=== PATIENT | male | born 1945 | race Caucasian/White ===

== ENCOUNTER → 2016-07-30 | Outpatient (CLI) | payer MEDICARE, BC ==
[2016-07-30 10:03] LABS: ABSOLUTE BASOPHILS # (AUTO) 0.1 10^3/uL (0.0-0.2); ABSOLUTE EOSINOPHILS # (AUTO) 0.2 10^3/uL (0.0-0.6); ABSOLUTE MONOCYTES (AUTO) 0.5 10^3/uL (0.1-1.4); ABSOLUTE NEUT (AUTO) 4.5 10^3/uL (1.7-8.2); BASOPHILS % (AUTO) 0.9 % (0-2); EOSINOPHILS % (AUTO) 2.7 % (0-6); HEMATOCRIT 37.4 % (37.9-51.0); HEMOGLOBIN 12.5 g/dL (13.5-17.0); HGB HCT DIFFERENCE 0.1; LYMPHOCYTES % (AUTO) 27.9 % (13-45); MEAN CORPUSCULAR HEMOGLOBIN 30.2 pg (27.0-33.4); MEAN CORPUSCULAR HGB CONC 33.6 g/dL (32.0-36.0); MEAN CORPUSCULAR VOLUME 90 fl (80-97); MONOCYTES % (AUTO) 6.5 % (3-13); RED BLOOD COUNT 4.15 10^6/uL (4.35-5.55); RED CELL DISTRIBUTION WIDTH 13.6 % (11.5-14.0); WHITE BLOOD COUNT 7.2 10^3/uL (4.0-10.5)
[2016-07-30 10:26] LABS: ALANINE AMINOTRANSFERASE 22 U/L (21-72); ALBUMIN 3.8 g/dL (3.5-5.0); ALKALINE PHOSPHATASE 55 U/L (38-126); ANION GAP 12 (5-19); ASPARTATE AMINO TRANSFERASE 18 U/L (17-59); BILIRUBIN,TOTAL 0.3 mg/dL (0.2-1.3); BLOOD UREA NITROGEN 19 mg/dL (7-20); CALCIUM 9.5 mg/dL (8.4-10.2); CARBON DIOXIDE 30 mmol/L (22-30); CHLORIDE 100 mmol/L (98-107); CHOLESTEROL 112.89 mg/dL (0-200); Direct HDL 28 mg/dL (>40); GLUCOSE 111 mg/dL (75-110); POTASSIUM 4.9 mmol/L (3.6-5.0); SODIUM 141.6 mmol/L (137-145); TOTAL PROTEIN 6.2 g/dL (6.3-8.2); TRIGLYCERIDES 99 mg/dL (<150)
[2016-07-30 10:37] LABS: DIRECT LDL 58 mg/dL (<100)
== END ==
LOC: OD 08:41
PROVIDERS: ATTEND Internal Medicine
DX: E11.9 Type 2 diabetes mellitus without complications (principal); I10 Essential (primary) hypertension; I25.10 Atherosclerotic heart disease of native coronary artery without angina pectoris; E78.5 Hyperlipidemia, unspecified; E03.9 Hypothyroidism, unspecified
CPT/HCPCS: 36415; 80053; 80061; 83036; 84443; 85025

== ENCOUNTER → 2016-09-17 | Outpatient (CLI) | payer MEDICARE, BC ==
[2016-09-17 16:13] LABS: ALANINE AMINOTRANSFERASE 28 U/L (21-72); ALBUMIN 4.4 g/dL (3.5-5.0); ALKALINE PHOSPHATASE 58 U/L (38-126); ANION GAP 12 (5-19); ASPARTATE AMINO TRANSFERASE 19 U/L (17-59); BILIRUBIN,TOTAL 0.6 mg/dL (0.2-1.3); BLOOD UREA NITROGEN 11 mg/dL (7-20); CALCIUM 9.7 mg/dL (8.4-10.2); CARBON DIOXIDE 26 mmol/L (22-30); CHLORIDE 98 mmol/L (98-107); GLUCOSE 80 mg/dL (75-110); POTASSIUM 4.6 mmol/L (3.6-5.0); SODIUM 136.3 mmol/L (137-145); TOTAL PROTEIN 6.9 g/dL (6.3-8.2)
[2016-09-19 10:44] LABS: PROSTATE SPECIFIC ANTIGEN 2.2 ng/mL (0.0-4.0); PSA % FREE 26.8 % (.); PSA FREE 0.59 ng/mL
== END ==
LOC: OD 14:58
PROVIDERS: ATTEND Urology
DX: N40.1 Benign prostatic hyperplasia with lower urinary tract symptoms (principal); I10 Essential (primary) hypertension; E13.9 Other specified diabetes mellitus without complications; R33.9 Retention of urine, unspecified; K58.9 Irritable bowel syndrome, unspecified; K59.00 Constipation, unspecified
CPT/HCPCS: 36415; 80053; 84154

== ENCOUNTER → 2017-06-29 | Outpatient (CLI) | payer MEDICARE, BC ==
[2017-06-29 09:24] LABS: ABSOLUTE BASOPHILS # (AUTO) 0.1 10^3/uL (0.0-0.2); ABSOLUTE EOSINOPHILS # (AUTO) 0.2 10^3/uL (0.0-0.6); ABSOLUTE LYMPHOCYTES (AUTO) 1.2 10^3/uL (0.5-4.7); ABSOLUTE MONOCYTES (AUTO) 0.5 10^3/uL (0.1-1.4); ABSOLUTE NEUT (AUTO) 3.5 10^3/uL (1.7-8.2); BASOPHILS % (AUTO) 2.4 % (0-2); EOSINOPHILS % (AUTO) 3.3 % (0-6); HEMATOCRIT 39.7 % (37.9-51.0); HEMOGLOBIN 13.4 g/dL (13.5-17.0); HGB HCT DIFFERENCE 0.5; LYMPHOCYTES % (AUTO) 22.8 % (13-45); MEAN CORPUSCULAR HEMOGLOBIN 30.5 pg (27.0-33.4); MEAN CORPUSCULAR HGB CONC 33.7 g/dL (32.0-36.0); MEAN CORPUSCULAR VOLUME 91 fl (80-97); MONOCYTES % (AUTO) 8.4 % (3-13); RED BLOOD COUNT 4.38 10^6/uL (4.35-5.55); RED CELL DISTRIBUTION WIDTH 13.7 % (11.5-14.0); SEGMENTED NEUTROPHILS % (AUTO) 63.1 % (42-78); WHITE BLOOD COUNT 5.5 10^3/uL (4.0-10.5)
[2017-06-29 09:57] LABS: ALANINE AMINOTRANSFERASE 29 U/L (21-72); ALBUMIN 4.1 g/dL (3.5-5.0); ALKALINE PHOSPHATASE 56 U/L (38-126); ANION GAP 12 (5-19); ASPARTATE AMINO TRANSFERASE 17 U/L (17-59); BILIRUBIN,DIRECT 0.3 mg/dL (0.0-0.4); BILIRUBIN,TOTAL 0.4 mg/dL (0.2-1.3); BLOOD UREA NITROGEN 13 mg/dL (7-20); CALCIUM 9.5 mg/dL (8.4-10.2); CARBON DIOXIDE 29 mmol/L (22-30); CHLORIDE 102 mmol/L (98-107); CREATININE RESULT 1.01 mg/dL (0.52-1.25); Direct HDL 38 mg/dL (>40); GLUCOSE 114 mg/dL (75-110); POTASSIUM 4.6 mmol/L (3.6-5.0); SODIUM 142.9 mmol/L (137-145); TOTAL PROTEIN 6.6 g/dL (6.3-8.2); TRIGLYCERIDES 124 mg/dL (<150)
[2017-06-29 10:07] LABS: DIRECT LDL 60 mg/dL (<100)
== END ==
LOC: OD 07:57
PROVIDERS: ATTEND Internal Medicine
DX: E11.9 Type 2 diabetes mellitus without complications (principal); I25.10 Atherosclerotic heart disease of native coronary artery without angina pectoris; I10 Essential (primary) hypertension; E03.9 Hypothyroidism, unspecified; N40.0 Benign prostatic hyperplasia without lower urinary tract symptoms; R35.1 Nocturia; Z68.33 Body mass index [BMI] 33.0-33.9, adult
CPT/HCPCS: 36415; 80053; 80061; 83036; 84153; 84443; 85025

== ENCOUNTER → 2018-02-09 | Outpatient (CLI) | payer MEDICARE, BC, OTHER ==
[2018-02-09 08:54] LABS: ABSOLUTE BASOPHILS # (AUTO) 0.1 10^3/uL (0.0-0.2); ABSOLUTE EOSINOPHILS # (AUTO) 0.2 10^3/uL (0.0-0.6); ABSOLUTE LYMPHOCYTES (AUTO) 1.6 10^3/uL (0.5-4.7); ABSOLUTE MONOCYTES (AUTO) 0.4 10^3/uL (0.1-1.4); ABSOLUTE NEUT (AUTO) 3.8 10^3/uL (1.7-8.2); EOSINOPHILS % (AUTO) 3.7 % (0-6); HEMATOCRIT 35.7 % (37.9-51.0); HEMOGLOBIN 12.1 g/dL (13.5-17.0); LYMPHOCYTES % (AUTO) 25.8 % (13-45); MEAN CORPUSCULAR HEMOGLOBIN 30.2 pg (27.0-33.4); MEAN CORPUSCULAR HGB CONC 33.8 g/dL (32.0-36.0); MEAN CORPUSCULAR VOLUME 89 fl (80-97); MONOCYTES % (AUTO) 7.3 % (3-13); PLATELET COUNT 344 10^3/uL (150-450); RED CELL DISTRIBUTION WIDTH 13.9 % (11.5-14.0); SEGMENTED NEUTROPHILS % (AUTO) 62.2 % (42-78); TOTAL CELLS COUNTED % (AUTO) 100 %; WHITE BLOOD COUNT 6.1 10^3/uL (4.0-10.5)
[2018-02-09 09:17] LABS: ALANINE AMINOTRANSFERASE 22 U/L (21-72); ALBUMIN 3.8 g/dL (3.5-5.0); ALKALINE PHOSPHATASE 42 U/L (38-126); ANION GAP 9 (5-19); ASPARTATE AMINO TRANSFERASE 14 U/L (17-59); BILIRUBIN,DIRECT 0.3 mg/dL (0.0-0.4); BILIRUBIN,TOTAL 0.5 mg/dL (0.2-1.3); BLOOD UREA NITROGEN 11 mg/dL (7-20); CALCIUM 9.2 mg/dL (8.4-10.2); CARBON DIOXIDE 29 mmol/L (22-30); CHLORIDE 101 mmol/L (98-107); CHOLESTEROL 95.36 mg/dL (0-200); GLUCOSE 96 mg/dL (75-110); POTASSIUM 4.4 mmol/L (3.6-5.0); SODIUM 138.9 mmol/L (137-145); TOTAL PROTEIN 6.1 g/dL (6.3-8.2); TRIGLYCERIDES 91 mg/dL (<150)
[2018-02-09 09:28] LABS: DIRECT LDL 43 mg/dL (<100)
== END ==
LOC: OD 08:23
PROVIDERS: ATTEND Internal Medicine
DX: E11.9 Type 2 diabetes mellitus without complications (principal); I10 Essential (primary) hypertension; E78.5 Hyperlipidemia, unspecified; E03.9 Hypothyroidism, unspecified
CPT/HCPCS: 36415; 80053; 80061; 83036; 84443; 85025

== ENCOUNTER 2018-04-04 00:07 | Emergency (ER) | payer MEDICARE, BC ==
--- NOTE | 2018-04-04 00:22 | ER Document Report ---
ED Fall - General Chief Complaint: Fall Stated Complaint: FALL-PAIN ALL OVER Time Seen by Provider: 04/04/18 00:13 Notes: Patient is a 73-year-old male that comes emergency room for chief complaint of fall. He states that he fell earlier today, he fell off of his chair backwards and hit his head, states that prior to arrival he also tried to get up, his legs suddenly give out from under him and he landed on his knees causing pain in his legs. He denies back pain, abdominal pain, chest pain, numbness, incontinence. He is on aspirin, no other blood thinners. Past medical history of Parkinson's. States she does have a walker and did not have it at the time of his falling. TRAVEL OUTSIDE OF THE [place] IN LAST 30 DAYS: No - Related data Allergies/Adverse Reactions: steroids Adverse Reaction (Intermediate, Uncoded 01/04/16 10:24) elevated bp Past Medical History - General Information source: Patient, Relative - - Social History Smoking Status: Never Smoker Frequency of alcohol use: None Drug Abuse: None Lives with: Family Family History: Arthritis, CAD, CVA, Hyperlipidemia, Hypertension, Malignancy. denies: DM, Thyroid Disfunction - Past Medical History Cardiac Medical History: Reports: Hx Atrial Fibrillation, Hx Hypercholesterolemia, Hx Hypertension - medicated Denies: Hx Heart Attack Pulmonary Medical History: Reports: Hx Pneumonia Denies: Hx Asthma Neurological Medical History: Denies: Hx Seizures Endocrine Medical History: Reports: Hx Diabetes Mellitus Type 2, Hx Hypothyroidism Renal/ Medical History: Reports: Hx Benign Prostatic Hyperplasia, Hx Kidney Stones Malignancy Medical History: Reports Hx Skin Cancer GI Medical History: Reports: Hx Irritable Bowel, Hx Colonoscopy. Denies: Hx Hiatal Hernia, Hx Ulcer Musculoskeletal Medical History: Reports Hx Arthritis, Reports Hx Musculoskeletal Deformity, Reports Hx Musculoskeletal Trauma Psychiatric Medical History: Reports: Hx Anxiety, Hx Post Traumatic Stress Disorder Traumatic Medical History: Reports: Hx Fractures - 3 weeks ago tripped vidant orif L lisfranc still nonweight bearing Past Surgical History: Reports: Hx Orthopedic Surgery - cervical & lumbar laminectomies orif L lis franc. Denies: Hx Open Heart Surgery, Hx Pacemaker - Immunizations Immunizations up to date: Yes Hx Diphtheria, Pertussis, Tetanus Vaccination: Yes - january 2015 Hx Pneumococcal Vaccination: 07/20/13 Review of Systems - Review of Systems Constitutional: No symptoms reported EENT: No symptoms reported Cardiovascular: No symptoms reported Respiratory: No symptoms reported Gastrointestinal: No symptoms reported Genitourinary: No symptoms reported Male Genitourinary: No symptoms reported Musculoskeletal: See HPI Skin: No symptoms reported Hematologic/Lymphatic: No symptoms reported Neurological/Psychological: See HPI Physical Exam - Vital signs Vitals: Temp Pulse Resp BP Pulse Ox 97.7 F 63 16 169/81 H 100 04/04/18 00:04/04/18 00:04/04/18 00:04/04/18 00:04/04/18 00:19 - Notes Notes: GENERAL: Alert, interacts well. No acute distress. HEAD: Normocephalic, atraumatic. EYES: Pupils equal, round, and reactive to light. Extraocular movements intact. ENT: Oral mucosa moist, tongue midline. [Nares patent, no nasal septal hematoma , TM's intact.] NECK: Full range of motion. Supple. Trachea midline. LUNGS: Clear to auscultation bilaterally, no wheezes, rales, or rhonchi. No respiratory distress. HEART: Regular rate and rhythm. No murmur ABDOMEN: Soft, non-tender. Non-distended. Bowel sounds present in all 4 quadrants. EXTREMITIES: Tenderness over anterior knees with questionable tiny ecchymosis over the both patellar areas. No noted swelling or wounds. Mild tenderness over the hips bilaterally and generally, nonspecific. Able to ambulate. Normal distal neurovascular exam. Normal extremity exam is otherwise. BACK: no cervical, thoracic, lumbar midline tenderness. No saddle anesthesia, normal distal neurovascular exam. NEUROLOGICAL: Alert and oriented x3. Normal speech. Slightly tremulous occasional but otherwise unremarkable including almost normal finger-nose testing. [cranial nerves II through XII grossly intact]. PSYCH: Normal affect, normal mood. SKIN: Warm, dry, normal turgor. No rashes or lesions noted. Course - Re-evaluation Re-evalutation: Patient with occasional tremulousness consistent with Parkinson's disorder, otherwise his neurological exam is unremarkable. I do not appreciate any signs of trauma except for possibly over the top of the knees but there are no open wounds. CT of the head, neck unremarkable, imaging of the hips and knees unremarkable. On reevaluation patient remains unchanged, he can ambulate although he is occasionally jerky and unsteady. CBC, chemistry unremarkable. Vital signs unremarkable. Discussed with patient and . Recommended that he have close follow-up with his neurologist to adjust his medications for Parkinson's, use his walker, and use more caution to avoid falls. Because he can ambulate, he is still close to his baseline reportedly, and no concerning abnormality is profound patient will be discharged with follow-up instructions. Patient and state understanding and agreement. - Vital Signs Vital signs: Temp Pulse Resp BP Pulse Ox 97.7 F 63 16 169/81 H 100 04/04/18 00:19 04/04/18 00:19 04/04/18 00:19 04/04/18 00:19 04/04/18 00:19 - Laboratory Result Diagrams: 04/04/18 01:09 04/04/18 01:09 Laboratory results interpreted by me: 04/04/18 01:09 RBC 3.98 L Hgb 12.2 L Hct 35.9 L RDW 14.8 H Discharge - Discharge Clinical Impression: Fall Qualifiers: Encounter type: initial encounter Qualified Code(s): W19.XXXA - Unspecified fall, initial encounter Head injury Qualifiers: Encounter type: initial encounter Qualified Code(s): S09.90XA - Unspecified injury of head, initial encounter Knee pain Qualifiers: Chronicity: acute Laterality: bilateral Qualified Code(s): M25.561 - Pain in right knee Condition: Stable Disposition: HOME, SELF-CARE Additional Instructions: The imaging of your head, neck, hips, and knees show arthritis in your knees but no acute fracture or concerning abnormality. Take, for pain, apply ice over the knees, use your walker. Follow-up closely with your neurologist because of your recent falls, you may need her medications adjusted. Return for any concerning symptoms including symptoms of vomiting, confusion, or any other concerning symptoms. See additional instructions listed below. Head Injury Precautions At this point, there is no evidence that your head injury is serious. Observation is necessary, however. Take only clear liquids for the first few hours, unless told otherwise by the doctor. If no pain medication was prescribed, you may take acetaminophen according to the directions on the bottle. Do not take any medication that may alter your level of alertness (unless you've discussed it with the doctor first) . Limit activity for the first 24 hours. Bed rest is best. During the first 24 hours, check to see approximately every two to three hours that the patient is easily arousable, responds normally, and can perform common tasks such as walking without difficulty. Contact your doctor or go to the hospital if any of the following things occur: Persistent vomiting, difficulty in arousing the patient, worsening or continued headache, or failure to improve as expected. Head injuries can cause symptoms that persist for a few days or even a few weeks. Referrals: SILAS BRENNAN MD [Primary Care Provider] - Follow up as needed
[2018-04-04 00:33] VITALS: BP 169/81
--- NOTE | 2018-04-04 00:49 | RADIOLOGY REPORT (SQ) ---
CT HEAD WITHOUT IV CONTRAST HISTORY: Fall, head injury. COMPARISON: None. TECHNIQUE: CT scan of the brain. This exam was performed according to our departmental dose-optimization program, which includes automated exposure control, adjustment of the mA and/or kV according to patient size and/or use of iterative reconstruction technique. FINDINGS: No acute intracranial hemorrhage or extra-axial fluid collection is seen. No midline shift, mass effect, or hydrocephalus. The baez-white matter differentiation is preserved without evidence of acute infarction. The ventricles, cisterns, and sulci are age-appropriate. Paranasal sinuses and mastoid air cells are clear. Calvarium is intact. IMPRESSION: No acute intracranial abnormality.
--- NOTE | 2018-04-04 00:51 | RADIOLOGY REPORT (SQ) ---
CT CERVICAL SPINE WITHOUT IV CONTRAST HISTORY: Fall, head injury. COMPARISON: None.. TECHNIQUE: CT scan of the cervical spine. This exam was performed according to our departmental dose-optimization program, which includes automated exposure control, adjustment of the mA and/or kV according to patient size and/or use of iterative reconstruction technique. FINDINGS: No dislocation along the atlanto-occipital, atlantoaxial, or facet joints. Reversal of the normal cervical lordosis centered at C6. Grade 1 anterolisthesis of C5-C6. Multilevel degenerative disc disease and facet DJD throughout the cervical spine. No significant canal stenosis. No prevertebral soft tissue swelling. IMPRESSION: No acute fracture or static listhesis.
--- NOTE | 2018-04-04 01:07 | RADIOLOGY REPORT (SQ) ---
2 VIEWS OF THE LEFT KNEE 2 VIEWS OF THE RIGHT KNEE HISTORY: Knee pain status post fall. COMPARISON: None. FINDINGS/IMPRESSION: Generalized osteopenia is present. No acute fracture or malalignment. Bilateral tricompartmental degenerative changes. No knee joint effusions are seen.
--- NOTE | 2018-04-04 01:14 | RADIOLOGY REPORT (SQ) ---
2 VIEWS OF BOTH HIPS HISTORY: Pain status post fall. COMPARISON: None. FINDINGS/IMPRESSION: No hip joint dislocations are seen. SI joints and pubic symphysis are without diastases. Iliopubic and ilioischial lines are preserved. Bowel gas obscures sacrum. Given the generalized osteopenia, consider cross-sectional imaging if there is high concern.
[2018-04-04 01:22] LABS: ABSOLUTE BASOPHILS # (AUTO) 0.1 10^3/uL (0.0-0.2); ABSOLUTE EOSINOPHILS # (AUTO) 0.2 10^3/uL (0.0-0.6); ABSOLUTE LYMPHOCYTES (AUTO) 1.7 10^3/uL (0.5-4.7); ABSOLUTE MONOCYTES (AUTO) 0.7 10^3/uL (0.1-1.4); ABSOLUTE NEUT (AUTO) 6.5 10^3/uL (1.7-8.2); BASOPHILS % (AUTO) 0.8 % (0-2); EOSINOPHILS % (AUTO) 2.3 % (0-6); HEMATOCRIT 35.9 % (37.9-51.0); HEMOGLOBIN 12.2 g/dL (13.5-17.0); LYMPHOCYTES % (AUTO) 18.7 % (13-45); MEAN CORPUSCULAR HEMOGLOBIN 30.8 pg (27.0-33.4); MEAN CORPUSCULAR HGB CONC 34.1 g/dL (32.0-36.0); MEAN CORPUSCULAR VOLUME 90 fl (80-97); MONOCYTES % (AUTO) 7.2 % (3-13); PLATELET COUNT 296 10^3/uL (150-450); RED BLOOD COUNT 3.98 10^6/uL (4.35-5.55); RED CELL DISTRIBUTION WIDTH 14.8 % (11.5-14.0); TOTAL CELLS COUNTED % (AUTO) 100 %; WHITE BLOOD COUNT 9.2 10^3/uL (4.0-10.5)
[2018-04-04 01:38] LABS: ANION GAP 8 (5-19); BLOOD UREA NITROGEN 13 mg/dL (7-20); CALCIUM 9.2 mg/dL (8.4-10.2); CARBON DIOXIDE 28 mmol/L (22-30); CHLORIDE 105 mmol/L (98-107); GLUCOSE 89 mg/dL (75-110); POTASSIUM 4.1 mmol/L (3.6-5.0); SODIUM 140.6 mmol/L (137-145)
== END 2018-04-04 08:43 | disposition home or self-care (01) ==
LOC: ER 00:07
DX: S09.90XA Unspecified injury of head, initial encounter (principal); W07.XXXA Fall from chair, initial encounter; M25.561 Pain in right knee; M25.562 Pain in left knee; G20 Parkinson's disease; S82.892D Other fracture of left lower leg, subsequent encounter for closed fracture with routine healing; X58.XXXD Exposure to other specified factors, subsequent encounter; Z82.49 Family history of ischemic heart disease and other diseases of the circulatory system; I10 Essential (primary) hypertension; Z82.3 Family history of stroke
CPT/HCPCS: 99284; 36415; 85025; 80048; 73522; 73560; 70450; 72125; L0120; L0172

== ENCOUNTER → 2018-05-05 | Outpatient (CLI) | payer MEDICARE, BC ==
[2018-05-05 18:15] LABS: BLOOD UREA NITROGEN 12 mg/dL (7-20)
== END ==
LOC: OD 16:37
PROVIDERS: ATTEND Internal Medicine
DX: Z01.818 Encounter for other preprocedural examination (principal); I10 Essential (primary) hypertension; K57.92 Diverticulitis of intestine, part unspecified, without perforation or abscess without bleeding
CPT/HCPCS: 36415; 82565; 84520

== ENCOUNTER → 2018-05-07 | Outpatient (CLI) | payer MEDICARE, BC ==
--- NOTE | 2018-05-07 22:56 | RADIOLOGY REPORT (SQ) ---
EXAM DESCRIPTION: CT ABD/PELVIS WITH IV ORAL COMPLETED DATE/TIME: 05/07/2018 1:54 pm REASON FOR STUDY: DIVERTICULITIS (K57.92) K57.92 DVTRCLI OF INTEST, PART UNSP, W/O PERF OR ABSCESS W/O COMPARISON: None. TECHNIQUE: CT scan of the abdomen and pelvis performed using helical scanning technique with dynamic intravenous contrast injection. No oral contrast. Images reviewed with lung, soft tissue, and bone windows. Reconstructed coronal and sagittal MPR images reviewed. Delayed images for evaluation of the urinary system also acquired. All images stored on PACS. All CT scanners at this facility use dose modulation, iterative reconstruction, and/or weight based d osing when appropriate to reduce radiation dose to as low as reasonably achievable (ALARA). [facility]: Dose Right [facility]: CareDose [facility]: Dose Right [facility]: Teradose 4D [facility]: [employer] CONTRAST TYPE AND DOSE: contrast/concentration: Isovue 350.00 mg/ml; Total Contrast Delivered: 100.0 ml; Total Saline Delivered: 72.0 ml RENAL FUNCTION: BUN 12 creatinine 1.1 RADIATION DOSE: CT Rad equipment meets quality standard of care and radiation dose reduction techniq ues were employed. CTDIvol: 13.9 - 16.2 mGy. DLP: 1701 mGy-cm.. LIMITATIONS: None. FINDINGS: LOWER CHEST: No significant findings. No nodules or infiltrates. LIVER: Several small hepatic cysts are present. SPLEEN: Normal size. No focal lesions. PANCREAS: No masses. No significant calcifications. No adjacent inflammation or peripancreatic fluid collections. Pancreatic duct not dilated. GALLBLADDER: No identified stones by CT criteria. No inflammatory changes to suggest cholecystitis. ADRENAL GLANDS: No significant masses or asymmetry. RIGHT KIDNEY AND URETER: No solid masses. No significant calcifications. No hydronephrosis or hyd roureter. LEFT KIDNEY AND URETER: No solid masses. Nonobstructing intrarenal calculi. No hydronephrosis or hydroureter. AORTA AND VESSELS: No aneurysm. No dissection. Renal arteries, SMA, celiac without stenosis. RETROPERITONEUM: No retroperitoneal adenopathy, hemorrhage or masses. BOWEL AND PERITONEAL CAVITY: Mild sigmoid diverticulosis. No acute inflammation. Large amount of st ool is present in the colon. APPENDIX: Not identified. PELVIS: No mass. No free fluid. Normal bladder. ABDOMINAL WALL: No masses. No hernias. BONES: No significant or acute findings. OTHER: No other significant finding. IMPRESSION: Diverticulosis coli. No acute inflammation. Constipation. Small hepatic cysts are pre sent. TECHNICAL DOCUMENTATION: JOB ID: [id number] Quality ID # [id number]: Final reports with documentation of one or more dose reduction techniques (e.g., Au tomated exposure control, adjustment of the mA and/or kV according to patient size, use of iterative reconstruction technique) 2010 [employer]- All Rights Reserved Reading location - IP/workstation name: [email or web address]
== END ==
LOC: RAD 12:49
PROVIDERS: ATTEND Internal Medicine
DX: K57.92 Diverticulitis of intestine, part unspecified, without perforation or abscess without bleeding (principal)
CPT/HCPCS: 74177

== ENCOUNTER → 2018-07-26 | Outpatient (CLI) | payer MEDICARE, BC ==
--- NOTE | 2018-07-26 16:50 | RADIOLOGY REPORT (SQ) ---
EXAM DESCRIPTION: KUB/ABDOMEN (SINGLE VIEW) COMPLETED DATE/TIME: 07/26/2018 3:42 pm REASON FOR STUDY: CONSTIPATION - SLOW TRANSIT K59.01 SLOW TRANSIT CONSTIPATION COMPARISON: 09/09/2015 NUMBER OF VIEWS: One view. TECHNIQUE: Supine radiographic image of the abdomen acquired. LIMITATIONS: None. FINDINGS: BOWEL GAS PATTERN: Normal bowel gas pattern. No dilated loops. CALCIFICATIONS: No suspicious calcifications. SOFT TISSUES: No gross mass or suggestion of organomegaly. HARDWARE: None in the abdomen. BONES: No acute fracture. No worrisome bone lesions. OTHER: No other significant finding. IMPRESSION: NO RADIOGRAPHIC EVIDENCE FOR ACUTE ABDOMINAL DISEASE. TECHNICAL DOCUMENTATION: JOB ID: [id number] [employer]- All Rights Reserved Reading location - IP/workstation name: [email or web address]
== END ==
LOC: RAD 15:19
PROVIDERS: ATTEND Physician Assistant Surgical
DX: K59.01 Slow transit constipation (principal)
CPT/HCPCS: 74018

== ENCOUNTER 2018-08-11 19:21 | Emergency (ER) | payer MEDICARE, BC ==
[2018-08-11] MEDS ORDERED: LIDOCAINE 1% INJ-PF (10 MG/ML) 30 ML SDV INJ ONE (21:49)
--- NOTE | 2018-08-11 22:45 | ER Document Report ---
Addendum entered and electronically signed by JUSTIN LAUGHLIN FNP 08/22/18 18:56: Procedures - Incision and Drainage Left posterior head near mastoid bone Type: Simple Anesthetic type: 1% Lidocaine mL's of anesthetic: 6 Blade size: 11 I&D procedure: Shurclens applied Incision Method: Incision made by scalpel Addendum entered and electronically signed by JUSTIN LAUGHLIN FNP 08/12/18 01:43: Course - Re-evaluation Re-evalutation: 08/12/18 01:42 Patient's sodium is 131. He denies any confusion or any altered mental status. His states that she cooks a low-sodium diet for him. I have advised that he is able to have some salt in his diet. They verbalized understanding. - Vital Signs Vital signs: Temp Pulse Resp BP Pulse Ox 98.7 F 99 20 116/71 98 08/11/18 19:43 08/11/18 19:43 08/11/18 19:43 08/11/18 19:43 08/11/18 19:43 - Laboratory Result Diagrams: 08/11/18 23:32 Laboratory results interpreted by me: 08/11/18 23:32 Sodium 131.3 L Chloride 95 L Original Note: ED General - General Chief Complaint: Cyst Stated Complaint: POSSIBLE ABSCESS Time Seen by Provider: 08/11/18 21:26 Notes: Patient is a 73-year-old male who presents to the emergency department with a chief complaint of an abscess behind his ear. He first noticed this abscess 2 days ago, was seen by urgent care and given Bactrim. They drained the abscess at that time. He is now noticing a second abscess forming right next to the first one. He denies any fevers, but states the area feels warm. He is a diabetic and he is on Xarelto. TRAVEL OUTSIDE OF THE [place] IN LAST 30 DAYS: No - Related Data Allergies/Adverse Reactions: acetaminophen [From Tylenol] Adverse Reaction (Verified 08/11/18 21:19) steroids Adverse Reaction (Intermediate, Uncoded 01/04/16 10:24) elevated bp Past Medical History - Social History Smoking Status: Never Smoker Frequency of alcohol use: None Drug Abuse: None Family History: Arthritis, CAD, CVA, Hyperlipidemia, Hypertension, Malignancy. denies: DM, Thyroid Disfunction Patient has suicidal ideation: No Patient has homicidal ideation: No - Past Medical History Cardiac Medical History: Reports: Hx Atrial Fibrillation, Hx Hypercholesterolemia, Hx Hypertension - medicated Denies: Hx Heart Attack Pulmonary Medical History: Reports: Hx Pneumonia Denies: Hx Asthma Neurological Medical History: Denies: Hx Seizures Endocrine Medical History: Reports: Hx Diabetes Mellitus Type 2, Hx Hypothyroidism Renal/ Medical History: Reports: Hx Benign Prostatic Hyperplasia, Hx Kidney Stones. Denies: Hx Peritoneal Dialysis Malignancy Medical History: Reports Hx Skin Cancer GI Medical History: Reports: Hx Irritable Bowel, Hx Colonoscopy. Denies: Hx Hiatal Hernia, Hx Ulcer Musculoskeletal Medical History: Reports Hx Arthritis, Reports Hx Musculoskel etal Deformity, Reports Hx Musculoskeletal Trauma Psychiatric Medical History: Reports: Hx Anxiety, Hx Bipolar Disorder, Hx Depression - PTSD, Hx Post Traumatic Stress Disorder Traumatic Medical History: Reports: Hx Fractures - 3 weeks ago tripped vidant orif L lisfranc still nonweight bearing Past Surgical History: Reports: Hx Orthopedic Surgery - cervical & lumbar laminectomies orif L lis franc. Denies: Hx Open Heart Surgery, Hx Pacemaker - Immunizations Immunizations up to date: Yes Hx Diphtheria, Pertussis, Tetanus Vaccination: Yes - january 2015 Hx Pneumococcal Vaccination: 07/20/13 Review of Systems - Review of Systems Notes: REVIEW OF SYSTEMS: CONSTITUTIONAL : Denies recent illness. Denies recent unintentional weight loss. Denies fever, chills, or sweats. EENT: Denies eye, ear, throat, or mouth pain, discharge, or symptoms. Denies nasal or sinus congestion. CARDIOVASCULAR: Denies chest pain. RESPIRATORY: Denies shortness of breath, cough, congestion, difficulty breathing, or wheezing. GASTROINTESTINAL: Denies nausea, vomiting, and diarrhea. Denies abdominal pain. Denies constipation. GENITOURINARY: Denies difficulty urinating, burning, blood in urine, urgency or frequency. MUSCULOSKELETAL: Denies neck and back pain. Denies joint pain or swelling. SKIN: See HPI HEMATOLOGIC : Denies easy bruising or bleeding. LYMPHATIC: Denies swollen, painful, enlarged glands. NEUROLOGICAL: Denies no numbness or tingling denies weakness. Denies headache. Denies altered mental status. Denies alteration in speech. PSYCHIATRIC: Denies stress, anxiety, alteration in sleep patterns, or depression. All other systems reviewed and negative. Physical Exam - Vital signs Vitals: Temp Pulse Resp BP Pulse Ox 98.7 F 99 20 116/71 98 08/11/18 19:43 08/11/18 19:43 08/11/18 19:43 08/11/18 19:43 08/11/18 19:43 - Notes Notes: PHYSICAL EXAMINATION: GENERAL: Appears well, healthy, well-nourished, no acute distress. HEAD: Normocephalic, atraumatic. Abscess noted behind the ear. EYES: PERRL, conjunctiva normal, all extraocular movements intact, sclera nonicteric ENT: Moist mucous membranes. NECK: Supple, no noticeable swelling, redness, rash. Normal range of motion. LUNGS: Equal breath sounds bilaterally and clear to auscultation. No wheezes rales or rhonchi. CARDIOVASCULAR: S1-S2, regular rate, regular rhythm. Radial pulses 2+, normal. ABDOMEN: Normoactive bowel sounds. Soft, nontender, no guarding, no rebound tenderness, and no masses palpated. EXTREMITIES: Normal strength and range of motion, no pitting or edema. No cyanosis. NEUROLOGICAL: Moves all extremities upon command. Strength 5/5 in all extremities. PSYCH: Normal mood, normal affect. SKIN: Warm, dry. No rash, lesions, ulcerations noted. Normal skin turgor. Course - Re-evaluation Re-evalutation: 08/11/18 22:[address] Marie evaluate the patient. She agrees that the patient needs to be sent for CT of the neck with IV contrast. Due to the patient's abscesses, he will be sent for a CT of the neck with IV contrast to evaluate for mastoiditis. Patient's ear canal is patent. No otitis externa noted. 08/12/18 01:[address] of his head and neck are negative for mastoiditis. He does have some lymph nodes in the area noted by the radiologist. He will continue the Bactrim he was prescribed by urgent care and I will add Keflex for the surrounding cellulitis. I do not suspect patient has necrotizing fasciitis or any life-threatening etiology at this time. Verbal discharge instructions were given to the patient. They verbalized understanding. They are stable for discharge. - Vital Signs Vital signs: Temp Pulse Resp BP Pulse Ox 98.7 F 99 20 116/71 98 08/11/18 19:43 08/11/18 19:43 08/11/18 19:43 08/11/18 19:43 08/11/18 19:43 - Laboratory Result Diagrams: 08/11/18 23:32 Laboratory results interpreted by me: 08/11/18 23:32 Sodium 131.3 L Chloride 95 L Discharge - Discharge Clinical Impression: Abscess Cellulitis Qualifiers: Site of cellulitis: head Qualified Code(s): L03.811 - Cellulitis of head [any part, except face] Condition: Stable Instructions: Abscess ([facility]), Cephalexin ([facility]), MRSA Cellulitis ([facility]), Post Incision and Drainage Additional Instructions: You were seen today in the emergency department for an abscess behind your ear. The abscess was drained, along with the first abscess that was there. Continue to take the antibiotics you were prescribed by the urgent care. You have been given another antibiotic. Please continue to take both antibiotics as prescribed. The CT of your head and neck was normal. Please follow-up with your primary provider this week. If you develop a fever greater than 100.4 F, have worsening symptoms, lose consciousness, or have any other symptoms that are worrisome to you, please return to the emergency department. Prescriptions: Cephalexin Monohydrate [Keflex 500 mg Capsule] 500 mg PO Q6H 7 Days #28 capsule
[2018-08-12 00:10] LABS: ANION GAP 8 (5-19); BLOOD UREA NITROGEN 10 mg/dL (7-20); CALCIUM 9.2 mg/dL (8.4-10.2); CARBON DIOXIDE 28 mmol/L (22-30); CHLORIDE 95 mmol/L (98-107); GLUCOSE 102 mg/dL (75-110); POTASSIUM 4.3 mmol/L (3.6-5.0); SODIUM 131.3 mmol/L (137-145)
--- NOTE | 2018-08-12 01:11 | RADIOLOGY REPORT (SQ) ---
EXAM DESCRIPTION: CT NECK CHEST WITH IV CONTRAST COMPLETED DATE/TME: 08/11/2018 22:42 CLINICAL HISTORY: 73 years, Male, eval mastoid cells; abcess behind ear COMPARISON: None. TECHNIQUE: 244 Images stored on PACS. All CT scanners at this facility use dose modulation, iterative reconstruction, and/or weight based dosing when appropriate to reduce radiation dose to as low as reasonably achievable (ALARA). [facility]: Dose Right [facility]: CareDose [facility]: Dose Right [facility]: Teradose 4D [facility]: [employer] LIMITATIONS: None. FINDINGS: Limited evaluation of brain parenchyma is unremarkable. The globes are intact bilaterally. There are subcutaneous inflammatory changes in the left posterior triangle/posterior auricular region. No discrete or defined abscess. The mastoid air cells are well aerated. No underlying bony abnormality. No soft tissue gas. The airway is widely patent. The epiglottis and aryepiglottic folds are normal. The prevertebral soft tissues are normal. There are a few likely reactive but nonenlarged cervical chain lymph nodes noted bilaterally. Lung apices are unremarkable. IMPRESSION: Focal subcutaneous inflammation in the left posterior auricular region. No discrete or defined abscess. A few likely reactive lymph nodes are noted. The mastoid air cells are well aerated. TECHNICAL DOCUMENTATION: Quality ID # [id number]: Final reports with documentation of one or more dose reduction techniques (e.g., Automated exposure control, adjustment of the mA and/or kV according to patient size, use of iterative reconstruction technique) copyright 2011 [employer]- All Rights Reserved
[2018-08-12] MEDS ORDERED: CEPHALEXIN 500 MG CAPSULE PO ONE (01:34)
[2018-08-12 02:02] VITALS: BP 121/64
== END 2018-08-12 02:02 | disposition home or self-care (01) ==
LOC: ER 19:21
DX: L03.811 Cellulitis of head [any part, except face] (principal); H60.01 Abscess of right external ear; E11.9 Type 2 diabetes mellitus without complications; E03.9 Hypothyroidism, unspecified; Z87.442 Personal history of urinary calculi; I48.91 Unspecified atrial fibrillation; E78.00 Pure hypercholesterolemia, unspecified; I10 Essential (primary) hypertension; Z88.6 Allergy status to analgesic agent
CPT/HCPCS: 99284; 36415; 80048; 70491; 10060; A9270

== ENCOUNTER 2018-10-30 14:59 | Emergency (ER) | payer MEDICARE, BC ==
[2018-10-30 15:10] VITALS: BP 147/67
--- NOTE | 2018-10-30 15:22 | ER Document Report ---
ED Medical Screen (RME) - General Chief Complaint: Abscess Recheck Stated Complaint: POSSIBLE ABSCESS Time Seen by Provider: 10/30/18 15:15 Mode of Arrival: Ambulatory Information source: Patient Notes: Patient is a 73-year-old male who presents to the emergency department with abscess to the back of his neck. Patient reports this is been there for approximately 3 days. He states he went to see an urgent care and saw Dr. Gibson at [facility] who prescribed him clindamycin ointment. Patient reports he has been putting the clindamycin ointment to the area with no relief. His states she squeezed it this morning and got a small amount of drainage from it. Exam: Area of induration with small amount of fluctuance noted to posterior neck on the left side. I have greeted and performed a rapid initial assessment of this patient. A comprehensive ED assessment and evaluation of the patient, analysis of test results and completion of the medical decision making process will be conducted by additional ED providers. Dictation of this chart was performed using voice recognition software; therefore, there may be some unintended grammatical errors. TRAVEL OUTSIDE OF THE [place] IN LAST 30 DAYS: No - Related Data Allergies/Adverse Reactions: acetaminophen [From Tylenol] Adverse Reaction (Verified 10/30/18 15:00) steroids Adverse Reaction (Intermediate, Uncoded 10/30/18 15:00) elevated bp Past Medical History - Social History Chew tobacco use (# tins/day): No Frequency of alcohol use: None Drug Abuse: None - Past Medical History Cardiac Medical History: Reports: Hx Atrial Fibrillation, Hx Hypercholesterolemia, Hx Hypertension - medicated Denies: Hx Heart Attack Pulmonary Medical History: Reports: Hx Pneumonia Denies: Hx Asthma Neurological Medical History: Denies: Hx Seizures Endocrine Medical History: Reports: Hx Diabetes Mellitus Type 2, Hx Hypothyroidism Renal/ Medical History: Reports: Hx Benign Prostatic Hyperplasia, Hx Kidney Stones. Denies: Hx Peritoneal Dialysis Malignancy Medical History: Reports Hx Skin Cancer GI Medical History: Reports: Hx Irritable Bowel, Hx Colonoscopy. Denies: Hx Hiatal Hernia, Hx Ulcer Musculoskeltal Medical History: Reports Hx Arthritis, Reports Hx Musculoskeletal Deformity, Reports Hx Musculoskeletal Trauma Psychiatric Medical History: Reports: Hx Anxiety, Hx Bipolar Disorder, Hx Depression - PTSD, Hx Post Traumatic Stress Disorder Traumatic Medical History: Reports: Hx Fractures - 3 weeks ago tripped vidant orif L lisfranc still nonweight bearing Past Surgical History: Reports: Hx Orthopedic Surgery - cervical & lumbar laminectomies orif L lis franc. Denies: Hx Open Heart Surgery, Hx Pacemaker - Immunizations Immunizations up to date: Yes Hx Diphtheria, Pertussis, Tetanus Vaccination: Yes - january 2015 Physical Exam - Vital signs Vitals: Temp Pulse Resp BP Pulse Ox 98.7 F 100 16 147/67 H 100 10/30/18 15:08 10/30/18 15:08 10/30/18 15:08 10/30/18 15:08 10/30/18 15:08 Course - Vital Signs Vital signs: Temp Pulse Resp BP Pulse Ox 98.7 F 100 16 147/67 H 100 10/30/18 15:08 10/30/18 15:08 10/30/18 15:08 10/30/18 15:08 10/30/18 15:08
--- NOTE | 2018-10-30 16:20 | ER Document Report ---
ED General - General Chief Complaint: Abscess Recheck Stated Complaint: POSSIBLE ABSCESS Time Seen by Provider: 10/30/18 15:15 Mode of Arrival: Ambulatory Information source: Patient TRAVEL OUTSIDE OF THE [place] IN LAST 30 DAYS: No - HPI Patient complains to provider of: Abscess on neck Onset: Other - 1 week Onset/Duration: Gradual, Persistent Quality of pain: Sharp Severity: Severe Pain Level: 5 Associated symptoms: denies: Chills, Fever Exacerbated by: Denies Relieved by: Denies Similar symptoms previously: No Recently seen / treated by doctor: No Notes: 73-year-old male with history of type 2 diabetes here with abscess on the left side of his neck. Symptoms for about a week. Seen walk-in facility and was prescribed clindamycin ointment and told to follow-up with a broke beater. No fevers or shaking chills. History of abscess on the neck in the past which was positive for MRSA. He was also Pseudomonas positive. Patient is currently on ciprofloxacin for a UTI. - Related Data Allergies/Adverse Reactions: acetaminophen [From Tylenol] Adverse Reaction (Verified 10/30/18 15:00) steroids Adverse Reaction (Intermediate, Uncoded 10/30/18 15:00) elevated bp Past Medical History - General Information source: Patient - Social History Smoking Status: Never Smoker Chew tobacco use (# tins/day): No Frequency of alcohol use: None Drug Abuse: None Family History: Reviewed & Not Pertinent, Arthritis, CAD, CVA, Hyperlipidemia, Hypertension, Malignancy. denies: DM, Thyroid Disfunction Patient has suicidal ideation: No Patient has homicidal ideation: No - Past Medical History Cardiac Medical History: Reports: Hx Atrial Fibrillation, Hx Hypercholesterolemia, Hx Hypertension - medicated Denies: Hx Heart Attack Pulmonary Medical History: Reports: Hx Pneumonia Denies: Hx Asthma Neurological Medical History: Denies: Hx Seizures Endocrine Medical History: Reports: Hx Diabetes Mellitus Type 2, Hx Hypothyroidism Renal/ Medical History: Reports: Hx Benign Prostatic Hyperplasia, Hx Kidney Stones. Denies: Hx Peritoneal Dialysis Malignancy Medical History: Reports Hx Skin Cancer GI Medical History: Reports: Hx Irritable Bowel, Hx Colonoscopy. Denies: Hx Hiatal Hernia, Hx Ulcer Musculoskeletal Medical History: Reports Hx Arthritis, Reports Hx Musculoskeletal Deformity, Reports Hx Musculoskeletal Trauma Psychiatric Medical History: Reports: Hx Anxiety, Hx Bipolar Disorder, Hx Depression - PTSD, Hx Post Traumatic Stress Disorder Traumatic Medical History: Reports: Hx Fractures - 3 weeks ago tripped vidant orif L shaeanc still nonweight bearing Past Surgical History: Reports: Hx Orthopedic Surgery - cervical & lumbar laminectomies orif L dami franc. Denies: Hx Open Heart Surgery, Hx Pacemaker - Immunizations Immunizations up to date: Yes Hx Diphtheria, Pertussis, Tetanus Vaccination: Yes - january 2015 Hx Pneumococcal Vaccination: 07/20/13 Review of Systems - Review of Systems Notes: Constitutional: No fevers. No chills. EENT: No eye redness. No eye pain. No ear pain. No sore throat. Cardiovascular: No chest pain. No palpitations. Respiratory: No cough. No shortness of breath. No respiratory distress. Gastrointestinal: No abdominal pain. No nausea, vomiting, or diarrhea. Genitourinary: Atraumatic. No lesions. No pain. No discharge. Musculoskeletal: Atraumatic. No swelling. No deformities. Skin: Positive for abscess Lymphatic: No swollen lymph nodes. Neurologic: No headache. No syncope. Psychiatric: No suicidal or homicidal ideation. Physical Exam - Vital signs Vitals: Temp Pulse Resp BP Pulse Ox 98.7 F 100 16 147/67 H 100 10/30/18 15:08 10/30/18 15:08 10/30/18 15:08 10/30/18 15:08 10/30/18 15:08 - Notes Notes: General: Well-developed, well-nourished. In no acute distress. Non-toxic appearing. Cardiac: Well-perfused. Regular rate and rhythm. No murmurs, rubs, or gallops. Pulmonary: No respiratory distress. No cyanosis. Bilateral lung fiels are clear to auscultation. Abdominal: Non-distended. Non-rigid. Bowels sounds are present in all four quadrants. No guarding or rebound. HEENT: Head is atraumatic. Conjunctivae not reddened. No tearing. PERRL. EOMI. Orbits atraumatic. No periorbital swelling or erythema. Oropharynx is without erythema, swelling, or exudates. Neck: There is a semi-fluctuant and indurated abscess to the left side of the posterior neck. There is a drainage of purulent material spontaneously coming out. There is no subcutaneous crepitus. Dermatologic: Warm with good turgor. No rash. Atraumatic. Chest: Atraumatic. No chest wall tenderness to palpation. Musculoskeletal: Moves all extremities well. No range of motion deficits. no muscular or joint tenderness. No paraspinal muscle tenderness. no midline spinal tenderness or step-off. Genitourinary: Examination deferred Neurologic: No gross neurologic deficits. Psychiatric: Normal mood. Course - Re-evaluation Re-evalutation: 10/30/18 16:18 Lesion was incised and drained. Cultures were obtained. Patient is already on ciprofloxacin for UTI. If, by chance, the patient has Pseudomonas again this should cover. We will also add Bactrim DS for MRSA differential - Vital Signs Vital signs: Temp Pulse Resp BP Pulse Ox 98.7 F 100 16 147/67 H 100 10/30/18 15:08 10/30/18 15:08 10/30/18 15:08 10/30/18 15:08 10/30/18 15:08 Procedures - Incision and Drainage Left side of neck Time completed: 16:19 Type: Simple Anesthetic type: 1% Lidocaine mL's of anesthetic: 5 Blade size: 11 I&D procedure: Betadine prep applied Incision Method: Incision made by scalpel Amount/type of drainage: Small amount Notes: 10/30/18 16:20 Patient tolerated procedure well Discharge - Discharge Clinical Impression: Abscess, neck Condition: Good Disposition: HOME, SELF-CARE Instructions: Abscess ([facility]), MRSA Cellulitis ([facility]), Post Incision and Drainage, Trimethoprim-Sulfa ([facility]) Additional Instructions: Start Bactrim immediately. Hot compresses as often as tolerated to help with drainage. Wound needs recheck in 2 days. His symptoms appear to be getting worse, please return to the ED. Prescriptions: Sulfamethoxazole/Trimethoprim [Bactrim Ds Tablet] 1 each PO BID 10 Days #20 tablet Referrals: primary, your [Other] - 11/01/18
== END 2018-10-30 16:41 | disposition home or self-care (01) ==
LOC: ER 14:59
DX: L02.11 Cutaneous abscess of neck (principal); E11.9 Type 2 diabetes mellitus without complications; N39.0 Urinary tract infection, site not specified; I10 Essential (primary) hypertension; Z86.14 Personal history of Methicillin resistant Staphylococcus aureus infection; Z85.828 Personal history of other malignant neoplasm of skin
CPT/HCPCS: 87070; 87075; 87077; 87186; 87205; 99283

== ENCOUNTER → 2018-11-02 | Outpatient (CLI) | payer MEDICARE, BC ==
--- NOTE | 2018-11-02 11:16 | RADIOLOGY REPORT (SQ) ---
EXAM DESCRIPTION: CT SOFT TISSUE NECK WITH COMPLETED DATE/TIME: 11/02/2018 10:27 am REASON FOR STUDY: CUTANEOUS ABSCESS OF NECK,STIFFNESS OF JOINT L02.11 CUTANEOUS ABSCESS OF NECK M25 .60 STIFFNESS OF UNSPECIFIED JOINT, NOT ELSEWHERE CLASSIF COMPARISON: 08/12/2018. TECHNIQUE: Post IV contrasted scanning from skull base through lung apices with review of bone, soft tissue and lung windows. Reconstructed coronal and sagittal MPR images reviewed. All images stored on PACS. All CT scanners at this facility use dose modulation, iterative reconstruction, and/or weight based d osing when appropriate to reduce radiation dose to as low as reasonably achievable (ALARA). [facility]: Dose Right [facility]: CareDose [facility]: Dose Right [facility]: Teradose 4D [facility]: INFIMET CONTRAST TYPE AND DOSE: contrast/concentration: Isovue 350.00 mg/ml; Total Contrast Delivered: 75.0 ml; Total Saline Delivered: 55.0 ml RENAL FUNCTION: Creatinine 1.2. RADIATION DOSE: . LIMITATIONS: None. FINDINGS: SKULL BASE: Intact. SOFT TISSUES: Indistinct increased density in the subcutaneous tissues of the posterior left neck ap proximately 3 cm inferior to the occipital bone. Demonstrated on axial images 33 -44. No focal flui d collection. MAJOR SALIVARY GLANDS: No solid or cystic masses. No inflammatory changes. LYMPHADENOPATHY: No adenopathy. MUCOSAL MASSES OR ASYMMETRY: No mucosal masses or asymmetry. LARYNX/CORDS: No abnormal findings. VASCULAR STRUCTURES: The major vessels are patent. LUNG APICES: Clear. BONES: Intact. Degenerative changes in the cervical spine. THYROID: Normal size. No masses. PARANASAL SINUSES: Clear. OTHER: In the upper mediastinum there is a 2 cm low-attenuation lesion on the right side of the trach ea at the level of the aortic arch (axial image 107). Average Hounsfield units measure approximately 25. IMPRESSION: 1. INDISTINCT INCREASED DENSITY IN THE SUBCUTANEOUS TISSUES OF THE POSTERIOR LEFT NECK DESCRIBED. THIS IS CONSISTENT WITH SUBCUTANEOUS INFLAMMATION AND/OR INFECTION. NO DISCRETE OR DRAINABLE ABSCES S PRESENT AT THIS TIME. NO SIGNIFICANT CERVICAL ADENOPATHY. 2. 2 CM LOW-ATTENUATION LESION IN THE UPPER MEDIASTINUM ON THE RIGHT DESCRIBED. THIS MAY BE CYSTI C IN NATURE. RECOMMEND FOLLOW-UP CT OF THE CHEST WITH CONTRAST TO RE-EVALUATE THIS AREA WELL D ETERMINE IF THERE IS ADENOPATHY OR ANY OTHER FINDINGS IN THE CHEST. TECHNICAL DOCUMENTATION: JOB ID: [id number] Quality ID # [id number]: Final reports with documentation of one or more dose reduction techniques (e.g., Au tomated exposure control, adjustment of the mA and/or kV according to patient size, use of iterative reconstruction technique) 2010 [employer]- All Rights Reserved Reading location - IP/workstation name: [email or web address]
== END ==
LOC: RAD 09:34
PROVIDERS: ATTEND Physician Assistant Surgical
DX: L02.11 Cutaneous abscess of neck (principal); M25.60 Stiffness of unspecified joint, not elsewhere classified
CPT/HCPCS: 70491; 82565

== ENCOUNTER 2018-11-24 10:33 | Emergency (ER) | payer MEDICARE, BC ==
[2018-11-24] MEDS ORDERED: ONDANSETRON 4 MG TAB.RAPDIS PO ONE (11:18)
--- NOTE | 2018-11-24 11:21 | ER Document Report ---
ED Medical Screen (RME) - General Chief Complaint: Nausea/Vomiting Stated Complaint: NAUSEA/VOMITING Time Seen by Provider: 11/24/18 11:13 Primary Care Provider: ADWOA FERNANDEZ PA-C [Primary Care Provider] - Follow up as needed Mode of Arrival: Wheelchair Information source: Patient Notes: Patient presents to the emergency department with complaints of left lower quadrant abdominal pain nausea and vomiting since yesterday. Patient has history of diverticulitis. Last bowel movement was yesterday was normal. Patient also has trouble voiding due to prostate issues. Reports frequent urinary tract infections. Reports he was able to void very little today. Denies fever but low-grade temp of 100.2 noted upon triage. I have greeted and performed a rapid initial assessment of this patient. A comprehensive ED assessment and evaluation of the patient, analysis of test results and completion of the medical decision making process will be conducted by additional ED providers. Dictation of this chart was performed using voice recognition software; therefore, there may be some unintended grammatical errors. TRAVEL OUTSIDE OF THE [place] IN LAST 30 DAYS: No - Related Data Allergies/Adverse Reactions: acetaminophen [From Tylenol] Adverse Reaction (Verified 11/24/18 11:12) steroids Adverse Reaction (Intermediate, Uncoded 11/24/18 11:12) elevated bp Past Medical History - Social History Chew tobacco use (# tins/day): No Frequency of alcohol use: None Drug Abuse: None - Past Medical History Cardiac Medical History: Reports: Hx Atrial Fibrillation, Hx Hypercholesterolemia, Hx Hypertension - medicated Denies: Hx Heart Attack Pulmonary Medical History: Reports: Hx Pneumonia Denies: Hx Asthma Neurological Medical History: Denies: Hx Seizures Endocrine Medical History: Reports: Hx Diabetes Mellitus Type 2, Hx Hypothyroidism Renal/ Medical History: Reports: Hx Benign Prostatic Hyperplasia, Hx Kidney Stones. Denies: Hx Peritoneal Dialysis Malignancy Medical History: Reports Hx Skin Cancer GI Medical History: Reports: Hx Irritable Bowel, Hx Colonoscopy. Denies: Hx Hiatal Hernia, Hx Ulcer Musculoskeltal Medical History: Reports Hx Arthritis, Reports Hx Musculoskeletal Deformity, Reports Hx Musculoskeletal Trauma Psychiatric Medical History: Reports: Hx Anxiety, Hx Bipolar Disorder, Hx Depression - PTSD, Hx Post Traumatic Stress Disorder Traumatic Medical History: Reports: Hx Fractures - 3 weeks ago tripped vidant orif L lisfranc still nonweight bearing Past Surgical History: Reports: Hx Orthopedic Surgery - cervical & lumbar laminectomies orif Barrett olson. Denies: Hx Open Heart Surgery, Hx Pacemaker - Immunizations Immunizations up to date: Yes Hx Diphtheria, Pertussis, Tetanus Vaccination: Yes - january 2015 Physical Exam - Vital signs Vitals: Temp Pulse Resp BP Pulse Ox 100.2 F 107 H 16 122/53 L 97 11/24/18 10:39 11/24/18 10:39 11/24/18 10:39 11/24/18 10:39 11/24/18 10:39 Course - Vital Signs Vital signs: Temp Pulse Resp BP Pulse Ox 100.2 F 107 H 16 122/53 L 97 11/24/18 10:39 11/24/18 10:39 11/24/18 10:39 11/24/18 10:39 11/24/18 10:39 Doctor's Discharge - Discharge Referrals: ADWOA FERNANDEZ PA-C [Primary Care Provider] - Follow up as needed
[2018-11-24 12:53] LABS: HEMATOCRIT 35.9 % (37.9-51.0); HEMOGLOBIN 11.9 g/dL (13.5-17.0); MEAN CORPUSCULAR HEMOGLOBIN 30.1 pg (27.0-33.4); MEAN CORPUSCULAR HGB CONC 33.2 g/dL (32.0-36.0); MEAN CORPUSCULAR VOLUME 91 fl (80-97); RED BLOOD COUNT 3.96 10^6/uL (4.35-5.55); WHITE BLOOD COUNT 20.7 10^3/uL (4.0-10.5)
[2018-11-24 13:15] LABS: ALANINE AMINOTRANSFERASE 21 U/L (21-72); ALBUMIN 3.8 g/dL (3.5-5.0); ALKALINE PHOSPHATASE 54 U/L (38-126); ANION GAP 15 (5-19); ASPARTATE AMINO TRANSFERASE 18 U/L (17-59); BILIRUBIN,DIRECT 0.2 mg/dL (0.0-0.4); BILIRUBIN,TOTAL 0.4 mg/dL (0.2-1.3); BLOOD UREA NITROGEN 21 mg/dL (7-20); CALCIUM 9.2 mg/dL (8.4-10.2); CARBON DIOXIDE 25 mmol/L (22-30); CHLORIDE 94 mmol/L (98-107); GLUCOSE 119 mg/dL (75-110); POTASSIUM 4.4 mmol/L (3.6-5.0); SODIUM 133.7 mmol/L (137-145); TOTAL PROTEIN 6.3 g/dL (6.3-8.2)
[2018-11-24 13:16] LABS: ABSOLUTE LYMPHOCYTES# (MANUAL) 0.2 10^3/uL (0.5-4.7); ABSOLUTE MONOCYTES # (MANUAL) 1.2 10^3/uL (0.1-1.4); ABSOLUTE NEUTROPHILS# (MANUAL) 19.3 10^3/uL (1.7-8.2); BAND NEUTROPHILS % (MANUAL) 8 % (3-5); BASOPHILS % (MANUAL) 0 % (0-2); EOSINOPHILS % (MANUAL) 0 % (0-6); LYMPHOCYTES % (MANUAL) 1 % (13-45); MONOCYTES % (MANUAL) 6 % (3-13); SEGMENTED NEUTROPHILS % (MAN) 85 % (42-78); TOTAL CELLS COUNTED 100
[2018-11-24 13:17] LABS: POLYCHROMASIA SLIGHT; TOXIC GRANULATION SLIGHT
[2018-11-24 13:18] LABS: ANISOCYTOSIS SLIGHT; PLATELET CLUMPS PRESENT; PLATELET COMMENT ADEQUATE; PLATELET COUNT 268 10^3/uL (150-450)
[2018-11-24 15:34] LABS: APPEARANCE,URINE CLOUDY; BILIRUBIN,URINE NEGATIVE (NEGATIVE); COLOR,URINE AMBER; GLUCOSE, URINE NEGATIVE (NEGATIVE); KETONES,URINE NEGATIVE (NEGATIVE); LEUKOCYTE ESTERASE,URINE MODERATE (NEGATIVE); NITRITE,URINE POSITIVE (NEGATIVE); PROTEIN,URINE 30 mg/dL (NEGATIVE); URINE SPECIFIC GRAVITY 1.025
--- NOTE | 2018-11-24 15:37 | RADIOLOGY REPORT (SQ) ---
EXAM DESCRIPTION: CT ABD/PELVIS NO ORAL OR IV COMPLETED DATE/TIME: 11/24/2018 3:12 pm REASON FOR STUDY: abd pain, hx diverticulitis, n/v COMPARISON: 05/07/2018 TECHNIQUE: CT scan of the abdomen and pelvis performed without intravenous or oral contrast. Images reviewed with lung, soft tissue, and bone windows. Reconstructed coronal and sagittal MPR images revi ewed. All images stored on PACS. All CT scanners at this facility use dose modulation, iterative reconstruction, and/or weight based d osing when appropriate to reduce radiation dose to as low as reasonably achievable (ALARA). [facility]: Dose Right [facility]: CareDose [facility]: Dose Right [facility]: Teradose 4D [facility]: [employer] RADIATION DOSE: CT Rad equipment meets quality standard of care and radiation dose reduction techniq ues were employed. CTDIvol: 14.2 mGy. DLP: 876 mGy-cm.mGy. LIMITATIONS: None. FINDINGS: LOWER CHEST: No significant findings. No nodules or infiltrates. NON-CONTRASTED LIVER, SPLEEN, ADRENALS: Evaluation limited by lack of IV contrast. No identified sign ificant masses. Multiple stable hepatic cyst. PANCREAS: No masses. No peripancreatic inflammatory changes. GALLBLADDER: No identified stones by CT criteria. No inflammatory changes to suggest cholecystitis. RIGHT KIDNEY AND URETER: No suspicious masses. Assessment limited by lack of IV contrast. No signif icant calcifications. No hydronephrosis or hydroureter. LEFT KIDNEY AND URETER: No suspicious masses. Assessment limited by lack of IV contrast. There is a obstructing stone within the proximal left ureter measuring 7 mm. There is associated proximal hydr o ureteral nephrosis and perinephric stranding. Additional nonobstructing stone measuring 6 mm, stab le. Stable upper pole cyst. AORTA AND RETROPERITONEUM: No aneurysm. No retroperitoneal masses or adenopathy. BOWEL AND PERITONEAL CAVITY: Scattered colonic diverticula. No focal bowel wall thickening. No evid ence of intestinal obstruction. Stool throughout the colon. APPENDIX: Normal. PELVIS, BLADDER, AND ABDOMINAL WALL:No abnormal masses. No free fluid. Bladder normal. BONES: No acute bony abnormality. No suspicious osseous lesions. Thoracolumbar spondylosis and lowe r lumbar facet arthropathy. OTHER: No other significant finding. IMPRESSION: 1. Obstructing 7 mm stone within the proximal left ureter with associated hydroureteron ephrosis and perinephric stranding. Additional nonobstructing left renal stone. 2. Stable additional chronic findings as above. COMMENT: Quality ID # [id number]: Final reports with documentation of one or more dose reduction techniques (e.g., Automated exposure control, adjustment of the mA and/or kV according to patient size, use of iterative reconstruction technique) TECHNICAL DOCUMENTATION: JOB ID: [id number] [employer]- All Rights Reserved Reading location - IP/workstation name: [email or web address]
--- NOTE | 2018-11-24 16:50 | ER Document Report ---
ED General - General Mode of Arrival: Wheelchair TRAVEL OUTSIDE OF THE [place] IN LAST 30 DAYS: No <ARMANDO JONES - Last Filed: 11/24/18 18:42> <ZACHARIAH MOSES - Last Filed: 11/24/18 22:34> - General Chief Complaint: Nausea/Vomiting Stated Complaint: NAUSEA/VOMITING Time Seen by Provider: 11/24/18 11:13 Primary Care Provider: ADWOA FERNANDEZ PA-C [Primary Care Provider] - Follow up as needed Notes: 73-year-old male with atrial fibrillation on Xarelto and diverticulitis presents to the emergency department with chief complaint of left lower quadrant pain and vomiting since yesterday. Patient has a history of frequent UTIs secondary to trouble voiding due to an enlarged prostate. He states he voided very little today. Last BM yesterday. Patient denies fevers but had a low-grade temp of 100.2. Denies chills, denies headache, denies shortness of breath or chest pain, has left lower quadrant abdominal pain, currently denies nausea or vomiting, complaint of difficulty with urination, last bowel movement yesterday. No other complaints (ARMANDO JONES) - Related Data Allergies/Adverse Reactions: acetaminophen [From Tylenol] Adverse Reaction (Verified 11/24/18 11:12) steroids Adverse Reaction (Intermediate, Uncoded 11/24/18 11:12) elevated bp Past Medical History - General Information source: Patient - Social History Smoking Status: Never Smoker Chew tobacco use (# tins/day): No Frequency of alcohol use: None Drug Abuse: None Family History: Reviewed & Not Pertinent, Arthritis, CAD, CVA, Hyperlipidemia, Hypertension, Malignancy. denies: DM, Thyroid Disfunction Patient has suicidal ideation: No Patient has homicidal ideation: No - Past Medical History Cardiac Medical History: Reports: Hx Atrial Fibrillation, Hx Hypercholesterole antoni, Hx Hypertension - medicated Denies: Hx Heart Attack Pulmonary Medical History: Reports: Hx Pneumonia Denies: Hx Asthma Neurological Medical History: Denies: Hx Seizures Endocrine Medical History: Reports: Hx Diabetes Mellitus Type 2, Hx Hypothyroidism Renal/ Medical History: Reports: Hx Benign Prostatic Hyperplasia, Hx Kidney Stones. Denies: Hx Peritoneal Dialysis Malignancy Medical History: Reports Hx Skin Cancer GI Medical History: Reports: Hx Irritable Bowel, Hx Colonoscopy. Denies: Hx Hiatal Hernia, Hx Ulcer Musculoskeletal Medical History: Reports Hx Arthritis, Reports Hx Musculoskeletal Deformity, Reports Hx Musculoskeletal Trauma Psychiatric Medical History: Reports: Hx Anxiety, Hx Bipolar Disorder, Hx Depression - PTSD, Hx Post Traumatic Stress Disorder Traumatic Medical History: Reports: Hx Fractures - 3 weeks ago tripped vidant orif L lisfranc still nonweight bearing Past Surgical History: Reports: Hx Orthopedic Surgery - cervical & lumbar laminectomies orif L lis franc. Denies: Hx Open Heart Surgery, Hx Pacemaker - Immunizations Immunizations up to date: Yes Hx Diphtheria, Pertussis, Tetanus Vaccination: Yes - january 2015 Hx Pneumococcal Vaccination: 07/20/13 <ARMANDO JONES - Last Filed: 11/24/18 18:42> Review of Systems - Review of Systems Constitutional: See HPI EENT: See HPI Cardiovascular: See HPI Respiratory: See HPI Gastrointestinal: See HPI Genitourinary: See HPI Musculoskeletal: See HPI <ARMANDO JONES - Last Filed: 11/24/18 18:42> Physical Exam <ARMANDO JONES - Last Filed: 11/24/18 18:42> - Vital signs Vitals: Temp Pulse Resp BP Pulse Ox 100.2 F 107 H 16 122/53 L 97 11/24/18 10:39 11/24/18 10:39 11/24/18 10:39 11/24/18 10:39 11/24/18 10:39 - Notes Notes: PHYSICAL EXAMINATION: Reviewed vital signs and charting by RN GENERAL: Alert, interacts well. No acute distress. HEAD: Normocephalic, atraumatic. EYES: Pupils equal and round. Extraocular movements intact. ENT: Oral mucosa moist, tongue midline. NECK: Full range of motion. Supple. Trachea midline. LUNGS: Clear to auscultation bilaterally, no wheezes, rales, or rhonchi. No respiratory distress. HEART: Regular rate and rhythm. No murmur ABDOMEN: soft, left lower quadrant tenderness. Non-distended. Bowel sounds pr esent. no McBurney's point tenderness, no Payne sign. EXTREMITIES: Moves all 4 extremities spontaneously. No edema, No cyanosis. Normal distal neurovascular exam BACK: No CVAT NEUROLOGIC: Oriented and appropriate. Normal speech. PSYCH: Normal affect, normal mood. SKIN: Warm, dry, normal turgor. No rashes or lesions noted. (ARMANDO JONES) Course - Laboratory Result Diagrams: 11/24/18 12:13 11/24/18 12:13 <ARMANDO JONES - Last Filed: 11/24/18 18:42> - Laboratory Result Diagrams: 11/24/18 12:13 11/24/18 12:13 <ZACHARIAH MOSES - Last Filed: 11/24/18 22:34> - Re-evaluation Re-evalutation: 11/24/18 16:50 Patient in no acute distress. Says it with a UTI. CT abdomen and pelvis showed an obstructed stone 7 mm in the left distal ureter. I have called [facility] to initiate transfer. 11/24/18 17:[address] Craft, urologist on-call at [facility] who is excepting the patient but because he is on Xarelto and has atrial fibrillation may need to get admitted to the hospitalist. Elena Jolly is going to make arrangements per him and call me back. 11/24/18 18:[address] Macias hospitalist to [facility] who also accepted the patient under her service. She requested that I collect blood cultures and start maintenance fluid at 125 mL's per hour. (ARMANDO JONES) 11/24/18 20:50 Transfer team is here, patient has been reevaluated at bedside, patient is improved with slight increase in pain medication, he has no current complaints, no significant change from prior, no concerning vital signs on recheck, stable for transport. (ZACHARIAH MOSES) - Vital Signs Vital signs: Temp Pulse Resp BP Pulse Ox 98.8 F 70 16 109/51 L 95 11/24/18 20:45 11/24/18 20:45 11/24/18 20:45 11/24/18 20:45 11/24/18 20:45 - Laboratory Laboratory results interpreted by me: 11/24/18 11/24/18 11/24/18 12:13 12:13 14:11 WBC 20.7 H RBC 3.96 L Hgb 11.9 L Hct 35.9 L RDW 15.0 H Seg Neuts % (Manual) 85 H Band Neutrophils % 8 H Lymphocytes % (Manual) 1 L Abs Neuts (Manual) 19.3 H Abs Lymphs (Manual) 0.2 L Sodium 133.7 L Chloride 94 L BUN 21 H Creatinine 1.89 H Est GFR ( Amer) 43 L Est GFR (Non-Af Amer) 35 L Glucose 119 H Urine Protein 30 H Urine Blood MODERATE H Urine Nitrite POSITIVE H Urine Urobilinogen 4.0 H Ur Leukocyte Esterase MODERATE H Discharge <ARMANDO JONES - Last Filed: 11/24/18 18:42> <ZACHARIAH MOSES - Last Filed: 11/24/18 22:34> - Discharge Clinical Impression: Ureterolithiasis, Acute renal insufficiency Urinary tract infection Qualifiers: Urinary tract infection type: site unspecified Hematuria presence: without hematuria Qualified Code(s): N39.0 - Urinary tract infection, site not specified Leukocytosis Qualifiers: Leukocytosis type: unspecified Qualified Code(s): D72.829 - Elevated white blood cell count, unspecified Abdominal pain Qualifiers: Abdominal location: lower abdomen, unspecified Qualified Code(s): R10.30 - Lower abdominal pain, unspecified Condition: Stable Disposition: [facility] Referrals: ADWOA FERNANDEZ PA-C [Primary Care Provider] - Follow up as needed
[2018-11-24] MEDS ORDERED: CEFTRIAXONE 1 GM/D5W RTU 1 GM/50 ML RTUPB IV ONE (17:29)
[2018-11-24] MEDS ORDERED: NORMAL SALINE 1000 ML 1,000 ML IV ONE ×2 (17:29→18:41)
[2018-11-24] MEDS ORDERED: MORPHINE SULFATE 10 MG/ML INJ IV ONE ×3 (17:30→20:35)
[2018-11-24 21:12] VITALS: BP 109/51
== END 2018-11-24 21:00 | disposition short-term general hospital (02) ==
LOC: ER 10:33
DX: N13.2 Hydronephrosis with renal and ureteral calculous obstruction (principal); N39.0 Urinary tract infection, site not specified; D72.829 Elevated white blood cell count, unspecified; N28.9 Disorder of kidney and ureter, unspecified; R10.32 Left lower quadrant pain; R11.2 Nausea with vomiting, unspecified; I48.91 Unspecified atrial fibrillation; Z79.01 Long term (current) use of anticoagulants; I10 Essential (primary) hypertension; E11.9 Type 2 diabetes mellitus without complications
CPT/HCPCS: 96376; 99285; 96361; 96375; 96365; 36415; 87086; 85025; 87088; 80053; 81001; 87186; 74176; A9270; J2270; J7030; J0696; S0119

== ENCOUNTER → 2019-01-18 | Outpatient (CLI) | payer MEDICARE, BC ==
[2019-01-18 09:43] LABS: ABSOLUTE BASOPHILS # (AUTO) 0.1 10^3/uL (0.0-0.2); ABSOLUTE EOSINOPHILS # (AUTO) 0.1 10^3/uL (0.0-0.6); ABSOLUTE LYMPHOCYTES (AUTO) 1.6 10^3/uL (0.5-4.7); ABSOLUTE MONOCYTES (AUTO) 0.3 10^3/uL (0.1-1.4); ABSOLUTE NEUT (AUTO) 3.7 10^3/uL (1.7-8.2); BASOPHILS % (AUTO) 1.2 % (0-2); EOSINOPHILS % (AUTO) 2.3 % (0-6); HEMATOCRIT 34.7 % (37.9-51.0); HEMOGLOBIN 11.7 g/dL (13.5-17.0); MEAN CORPUSCULAR HGB CONC 33.6 g/dL (32.0-36.0); MEAN CORPUSCULAR VOLUME 89 fl (80-97); MONOCYTES % (AUTO) 5.9 % (3-13); PLATELET COUNT 360 10^3/uL (150-450); RED BLOOD COUNT 3.89 10^6/uL (4.35-5.55); RED CELL DISTRIBUTION WIDTH 15.2 % (11.5-14.0); SEGMENTED NEUTROPHILS % (AUTO) 63.6 % (42-78); TOTAL CELLS COUNTED % (AUTO) 100 %; WHITE BLOOD COUNT 5.8 10^3/uL (4.0-10.5)
[2019-01-18 10:08] LABS: ALANINE AMINOTRANSFERASE 22 U/L (21-72); ALKALINE PHOSPHATASE 57 U/L (38-126); ANION GAP 9 (5-19); ASPARTATE AMINO TRANSFERASE 16 U/L (17-59); BILIRUBIN,DIRECT 0.3 mg/dL (0.0-0.4); BILIRUBIN,TOTAL 0.4 mg/dL (0.2-1.3); BLOOD UREA NITROGEN 16 mg/dL (7-20); CALCIUM 9.4 mg/dL (8.4-10.2); CARBON DIOXIDE 29 mmol/L (22-30); CHLORIDE 102 mmol/L (98-107); CHOLESTEROL 120.85 mg/dL (0-200); GLUCOSE 117 mg/dL (75-110); POTASSIUM 4.6 mmol/L (3.6-5.0); SODIUM 140.4 mmol/L (137-145); TOTAL PROTEIN 6.7 g/dL (6.3-8.2); TRIGLYCERIDES 100 mg/dL (<150)
[2019-01-18 10:19] LABS: DIRECT LDL 64 mg/dL (<100)
[2019-01-19 12:36] LABS: CREATININE URINE 115.9 mg/dL (Not Estab.); MICROALBUMIN URINE 79.2 ug/mL (Not Estab.)
== END ==
LOC: OD 08:44
PROVIDERS: ATTEND Internal Medicine
DX: I25.10 Atherosclerotic heart disease of native coronary artery without angina pectoris (principal); E11.9 Type 2 diabetes mellitus without complications; I10 Essential (primary) hypertension; E78.5 Hyperlipidemia, unspecified; R53.83 Other fatigue; R35.1 Nocturia
CPT/HCPCS: 36415; 80053; 80061; 82043; 82570; 83036; 84153; 84443; 85025

== ENCOUNTER 2019-05-20 10:45 | Emergency (ER) | payer MEDICARE, BC ==
--- NOTE | 2019-05-20 11:24 | ER Document Report ---
ED Medical Screen (RME) - General Chief Complaint: Fall Stated Complaint: FALL/LEFT HIP INJURY Time Seen by Provider: 05/20/19 11:21 Primary Care Provider: WILBERTO TABOR MD [Primary Care Provider] - Follow up as needed Mode of Arrival: Ambulatory Information source: Patient, Relative Notes: 74-year-old male presented to ED for fall on last Thursday. states that he lost his balance fell hitting the front of a cast iron stove it was cold at the time. Patient does have a very ecchymotic left buttocks according to the pictures the showed me he does have gomez across to his left buttocks. She states she went to the doctor and they told her to put hot packs on it but the patient is having a lot of pain moving and walking and has not had an x-ray as yet. Patient is alert oriented respirations regular nonlabored speaking in full sentences. Patient states he is on Xarelto. I have greeted and performed a rapid initial assessment of this patient. A comprehensive ED assessment and evaluation of the patient, analysis of test results and completion of medical decision making process will be conducted by an additional ED providers. TRAVEL OUTSIDE OF THE [place] IN LAST 30 DAYS: No - Related Data Allergies/Adverse Reactions: acetaminophen [From Tylenol] Adverse Reaction (Verified 11/24/18 11:12) steroids Adverse Reaction (Intermediate, Uncoded 11/24/18 11:12) elevated bp Past Medical History - Past Medical History Cardiac Medical History: Reports: Hx Atrial Fibrillation, Hx Hypercholesterolemia, Hx Hypertension - medicated Denies: Hx Heart Attack Pulmonary Medical History: Reports: Hx Pneumonia Denies: Hx Asthma Neurological Medical History: Denies: Hx Seizures Endocrine Medical History: Reports: Hx Diabetes Mellitus Type 2, Hx Hypothyroidism Renal/ Medical History: Reports: Hx Benign Prostatic Hyperplasia, Hx Kidney Stones. Denies: Hx Peritoneal Dialysis Malignancy Medical History: Reports Hx Skin Cancer GI Medical History: Reports: Hx Irritable Bowel, Hx Colonoscopy. Denies: Hx Hiatal Hernia, Hx Ulcer Musculoskeltal Medical History: Reports Hx Arthritis, Reports Hx Musculoskeletal Deformity, Reports Hx Musculoskeletal Trauma Psychiatric Medical History: Reports: Hx Anxiety, Hx Bipolar Disorder, Hx Depression - PTSD, Hx Post Traumatic Stress Disorder Traumatic Medical History: Reports: Hx Fractures - 3 weeks ago tripped vidant orif L lisfranc still nonweight bearing Past Surgical History: Reports: Hx Orthopedic Surgery - cervical & lumbar laminectomies orif Barrett olson. Denies: Hx Open Heart Surgery, Hx Pacemaker - Immunizations Immunizations up to date: Yes Hx Diphtheria, Pertussis, Tetanus Vaccination: Yes - january 2015 Physical Exam - Vital signs Vitals: Temp Pulse Resp BP Pulse Ox 97.4 F 83 16 114/56 L 100 05/20/19 10:48 05/20/19 10:48 05/20/19 10:48 05/20/19 10:48 05/20/19 10:48 Course - Vital Signs Vital signs: Temp Pulse Resp BP Pulse Ox 97.4 F 83 16 114/56 L 100 05/20/19 10:48 05/20/19 10:48 05/20/19 10:48 05/20/19 10:48 05/20/19 10:48 Doctor's Discharge - Discharge Referrals: WILBERTO TABOR MD [Primary Care Provider] - Follow up as needed
--- NOTE | 2019-05-20 12:19 | RADIOLOGY REPORT (SQ) ---
EXAM DESCRIPTION: HIP LEFT AP/LATERAL COMPLETED DATE/TIME: 05/20/2019 12:00 pm REASON FOR STUDY: fall pain hip and buttocks diabetic COMPARISON: None. NUMBER OF VIEWS: Two views. TECHNIQUE: AP pelvis and additional frog-leg view of the left hip. LIMITATIONS: None. FINDINGS: MINERALIZATION: Normal. LEFT HIP: No fracture or dislocation. No worrisome bone lesions. RIGHT HIP: No fracture or dislocation. No worrisome bone lesions. PUBIS AND ISCHIUM: No fracture. PELVIS: No fracture. SACRUM: No fracture or dislocation. No worrisome bone lesions. LOWER LUMBAR SPINE: Spondylosis. SOFT TISSUES: No findings. OTHER: No other significant finding. IMPRESSION: NO RADIOGRAPHIC EVIDENCE OF ACUTE INJURY. TECHNICAL DOCUMENTATION: JOB ID: [id number] [employer]- All Rights Reserved Reading location - IP/workstation name: [email or web address]
--- NOTE | 2019-05-20 12:28 | RADIOLOGY REPORT (SQ) ---
EXAM DESCRIPTION: L SPINE WHOLE COMPLETED DATE/TIME: 05/20/2019 12:00 pm REASON FOR STUDY: fall pain hip and buttocks diabetic COMPARISON: None. NUMBER OF VIEWS: Five views including obliques. TECHNIQUE: AP, lateral, oblique, and sacral radiographic images acquired of the lumbar spine. LIMITATIONS: None. FINDINGS: MINERALIZATION: Normal. SEGMENTATION: Normal. No transitional anatomy. ALIGNMENT: Mild scoliosis. VERTEBRAE: Maintained height. No fracture or worrisome bone lesion. DISCS: Multilevel disc space narrowing with osteophytes. POSTERIOR ELEMENTS: Pedicles and facets are intact. No pars defect or posterior arch defects. Facet arthropathy is present. HARDWARE: None in the spine. PARASPINAL SOFT TISSUES: Normal. PELVIS: Intact as visualized. No fractures or worrisome bone lesions. SI joints intact. OTHER: No other significant finding. IMPRESSION: SPONDYLOSIS WITHOUT BONE LESION OR FRACTURE. TECHNICAL DOCUMENTATION: JOB ID: [id number] [email or web address]- All Rights Reserved Reading location - IP/workstation name: [email or web address]
--- NOTE | 2019-05-20 13:43 | ER Document Report ---
ED General - General Chief Complaint: Fall Stated Complaint: FALL/LEFT HIP INJURY Time Seen by Provider: 05/20/19 11:21 Primary Care Provider: SILAS BRENNAN MD [Primary Care Provider] - Follow up in 1 week Mode of Arrival: Ambulatory Notes: Patient is a 74-year-old male who presents to the emergency department with a chief complaint of sacral/lumbar pain. About a week ago the patient fell on a cast iron stove. Patient's currently on blood thinners. Patient has been able to walk, but states that the bruising has gotten worse. He has been using heating pads with little relief. TRAVEL OUTSIDE OF THE [place] IN LAST 30 DAYS: No - Related Data Allergies/Adverse Reactions: acetaminophen [From Tylenol] Adverse Reaction (Verified 11/24/18 11:12) steroids Adverse Reaction (Intermediate, Uncoded 11/24/18 11:12) elevated bp Past Medical History - General Information source: Patient, Relative - Social History Smoking Status: Never Smoker Chew tobacco use (# tins/day): No Frequency of alcohol use: None Drug Abuse: None Family History: Reviewed & Not Pertinent, Arthritis, CAD, CVA, Hyperlipidemia, Hypertension, Malignancy. denies: DM, Thyroid Disfunction Patient has suicidal ideation: No Patient has homicidal ideation: No - Past Medical History Cardiac Medical History: Reports: Hx Atrial Fibrillation, Hx Hypercholesterolemia, Hx Hypertension - medicated Denies: Hx Heart Attack Pulmonary Medical History: Reports: Hx Pneumonia Denies: Hx Asthma Neurological Medical History: Denies: Hx Seizures Endocrine Medical History: Reports: Hx Diabetes Mellitus Type 2, Hx Hypothyroidism Renal/ Medical History: Reports: Hx Benign Prostatic Hyperplasia, Hx Kidney Stones. Denies: Hx Peritoneal Dialysis Malignancy Medical History: Reports Hx Skin Cancer GI Medical History: Reports: Hx Irritable Bowel, Hx Colonoscopy. Denies: Hx Hiatal Hernia, Hx Ulcer Musculoskeletal Medical History: Reports Hx Arthritis, Reports Hx Musculoskeletal Deformity, Reports Hx Musculoskeletal Trauma Psychiatric Medical History: Reports: Hx Anxiety, Hx Bipolar Disorder, Hx Depression - PTSD, Hx Post Traumatic Stress Disorder Traumatic Medical History: Reports: Hx Fractures - 3 weeks ago tripped vidant orif L lisfranc still nonweight bearing Past Surgical History: Reports: Hx Orthopedic Surgery - cervical & lumbar laminectomies orif L lis franc. Denies: Hx Open Heart Surgery, Hx Pacemaker - Immunizations Immunizations up to date: Yes Hx Diphtheria, Pertussis, Tetanus Vaccination: Yes - january 2015 Hx Pneumococcal Vaccination: 07/20/13 Review of Systems - Review of Systems Notes: REVIEW OF SYSTEMS: CONSTITUTIONAL : Denies recent illness. Denies recent unintentional weight loss. Denies fever, chills, or sweats. EENT: Denies eye, ear, throat, or mouth pain, discharge, or symptoms. Denies nasal or sinus congestion. CARDIOVASCULAR: Denies chest pain. RESPIRATORY: Denies shortness of breath, cough, congestion, difficulty breathing, or wheezing. GASTROINTESTINAL: Denies nausea, vomiting, and diarrhea. Denies abdominal pain. Denies constipation. GENITOURINARY: Denies difficulty urinating, burning, blood in urine, urgency or frequency. MUSCULOSKELETAL: See HPI. SKIN: Denies rash, itchiness, or lesions HEMATOLOGIC : See HPI. LYMPHATIC: Denies swollen, painful, enlarged glands. NEUROLOGICAL: Denies no numbness or tingling denies weakness. Denies headache. Denies altered mental status. Denies alteration in speech. PSYCHIATRIC: Denies stress, anxiety, alteration in sleep patterns, or depression. All other systems reviewed and negative. Physical Exam - Vital signs Vitals: Temp Pulse Resp BP Pulse Ox 97.4 F 83 16 114/56 L 100 05/20/19 10:48 05/20/19 10:48 05/20/19 10:48 05/20/19 10:48 05/20/19 10:48 - Notes Notes: PHYSICAL EXAMINATION: GENERAL: Appears well, healthy, well-nourished, no acute distress. HEAD: Normocephalic, atraumatic. EYES: PERRL, conjunctiva normal, all extraocular movements intact, sclera nonicteric ENT: Moist mucous membranes. NECK: Supple, no noticeable swelling, redness, rash. Normal range of motion. LUNGS: Equal breath sounds bilaterally and clear to auscultation. No wheezes rales or rhonchi. CARDIOVASCULAR: S1-S2, regular rate, regular rhythm. Radial pulses 2+, normal. ABDOMEN: Normoactive bowel sounds. Soft, nontender, no guarding, no rebound tenderness, and no masses palpated. EXTREMITIES: Normal strength and range of motion, no pitting or edema. No cyanosis. NEUROLOGICAL: Moves all extremities upon command. Strength 5/5 in all extremities. PSYCH: Normal mood, normal affect. SKIN: Warm, dry. Hematoma noted to left medial gluteal cleft. Course - Re-evaluation Re-evalutation: 05/20/19 15:52 Patient has a 1 x 2.6 x 4.2 cm gluteal hematoma. Patient has good vascular flow. He is currently on blood thinners at this time. Have a very low suspicion for DVT. At this time, I have advised him to continue to take his pain medicine he has at home to help him with the pain. I have also advised him to follow-up with his primary care provider next week to have his hematoma reevaluated. He is in agreement with this plan. Follow-up precautions were given. Verbal discharge instructions were given to the patient. They verbalized understanding. They are stable for discharge. - Vital Signs Vital signs: Temp Pulse Resp BP Pulse Ox 97.2 F 80 16 112/60 100 05/20/19 16:07 05/20/19 16:07 05/20/19 16:07 05/20/19 16:07 05/20/19 16:07 Discharge - Discharge Clinical Impression: Hematoma Fall Qualifiers: Encounter type: initial encounter Qualified Code(s): W19.XXXA - Unspecified fall, initial encounter Condition: Stable Disposition: HOME, SELF-CARE Additional Instructions: You were seen today in the emergency department after a fall. You have a hematoma, blood clot in the area of where you are hurting. At this time, the hematoma is small and due to you being on blood thinners, let your body take care of the hematoma. You can take your current pain medication to help with your pain. Please follow-up with your primary care provider in regards to this visit. Referrals: SILAS BRENNAN MD [Primary Care Provider] - Follow up in 1 week
[2019-05-20] MEDS ORDERED: OXYCODONE HCL IR 5 MG TABLET PO ONE (13:53)
--- NOTE | 2019-05-20 15:33 | RADIOLOGY REPORT (SQ) ---
EXAM DESCRIPTION: U/S EXTREMITY NONVASCULAR LTD COMPLETED DATE/TIME: 05/20/2019 3:16 pm REASON FOR STUDY: fall; right buttock hematoma COMPARISON: None. TECHNIQUE: Dynamic and static grayscale images acquired of the localized site of clinical concern an d recorded on PACS. Additional selected color Doppler and spectral images recorded. SITE OF CONCERN: Right buttock LIMITATIONS: None. FINDINGS: There is a 1.0 x 2.6 x 4.2 cm gluteal hypoechoic lesion with no internal flow consistent w ith a hematoma. IMPRESSION: Hematoma. TECHNICAL DOCUMENTATION: JOB ID: [id number] [employer]- All Rights Reserved Reading location - IP/workstation name: [email or web address]
[2019-05-20 16:07] VITALS: BP 112/60
== END 2019-05-20 16:07 | disposition home or self-care (01) ==
LOC: ER 10:45
DX: S30.0XXA Contusion of lower back and pelvis, initial encounter (principal); W19.XXXA Unspecified fall, initial encounter; W22.09XA Striking against other stationary object, initial encounter; I10 Essential (primary) hypertension; E11.9 Type 2 diabetes mellitus without complications; I48.91 Unspecified atrial fibrillation; Z79.899 Other long term (current) drug therapy
CPT/HCPCS: 99284; 73502; 72110; 76882; A9270

== ENCOUNTER → 2019-08-04 | Outpatient (CLI) | payer MEDICARE, BC ==
--- NOTE | 2019-08-04 15:36 | RADIOLOGY REPORT (SQ) ---
EXAM DESCRIPTION: RIBS LEFT W/PA CHEST COMPLETED DATE/TIME: 08/04/2019 12:32 pm REASON FOR STUDY: FRACTURE OF ONE RIB, UNSP SIDE, INIT FOR CLOS FX S22.39XA FRACTURE OF ONE RIB, UN SP SIDE, INIT FOR CLOS FX COMPARISON: None. TECHNIQUE: Frontal view of the chest and additional views of the left ribs acquired. NUMBER OF VIEWS: Five view. LIMITATIONS: None. FINDINGS: FRONTAL CXR: No pneumothorax. No pleural effusion. No atelectasis or infiltrates. RIBS: No displaced rib fractures. No lytic or blastic bony lesions. OTHER: No other significant finding. IMPRESSION: NO PNEUMOTHORAX. NO DISPLACED RIB FRACTURES. COMMENT: SITE OF TRAUMA/COMPLAINT MARKED/STAMP COMPLETED: YES. TECHNICAL DOCUMENTATION: JOB ID: [id number] [employer]- All Rights Reserved Reading location - IP/workstation name: [email or web address]
== END ==
LOC: RAD 11:55
PROVIDERS: ATTEND Internal Medicine
DX: S22.39XA Fracture of one rib, unspecified side, initial encounter for closed fracture (principal); X58.XXXA Exposure to other specified factors, initial encounter

== ENCOUNTER 2019-08-23 14:17 | Inpatient (IN) | payer MEDICARE, BC ==
[2019-08-23] MEDS ORDERED: ONDANSETRON 4 MG TAB.RAPDIS PO PRN (15:43)
[2019-08-23] MEDS ORDERED: TEMAZEPAM 15 MG CAPSULE PO PRN (15:43)
[2019-08-23] MEDS ORDERED: ONDANSETRON HCL INJ/PF 4 MG/2 ML SDV IV PRN (15:43)
[2019-08-23] MEDS ORDERED: MAGNESIUM HYDROXIDE SUSP 30 ML UDCUP PO PRN (15:43)
[2019-08-23] MEDS ORDERED: DEXTROSE 50%-WATER 25 GM/50 ML DISP.SYRIN IV PRN ×2 (15:50)
[2019-08-23] MEDS ORDERED: GLUCAGON,HUMAN RECOMB 1 MG INJ IM PRN (15:50)
[2019-08-23] MEDS ORDERED: DEXTROSE 40% GEL 15 GM TUBE PO PRN ×2 (15:50)
--- NOTE | 2019-08-23 16:03 | PDOC H&P ---
History of Present Illness Admission Date/PCP: 08/23/19 14:17 SILAS BRENNAN MD History of Present Illness: CESAR ARCINIEGA is a 74 year old male has a history for the last years of repeated urinary tract infections.. Patient is a direct admission from Dr. Brennan urine culture that grew out Pseudomonas on 08/22/2019. It appeared to be sensitive to cefepime, imipenem, ,meropenem , and piperacillin. Born to the and the patient ever since 2014 he has had 2 or 3 urinary tract infections every year. Patient and his state that they have noticed this been going on now for the bout the last 2 months and he has not been on any antibiotics now for over a week. Multiple other medical problems including hypertension BPH bipolar and diabetes Is recent fever, chills, nausea or vomiting. Past Medical History Cardiac Medical History: Reports: Atrial Fibrillation, Hyperlipidema, Hypertension - medicated Denies: Coronary Artery Disease, Myocardial Infarction Pulmonary Medical History: Reports: Pneumonia Denies: Asthma Neurological Medical History: Denies: Seizures Endocrine Medical History: Reports: Diabetes Mellitus Type 2, Hypothyroidism Malignancy Medical History: Reports: Skin Cancer GI Medical History: Denies: Hepatitis, Hiatal Hernia Musculoskeltal Medical History: Reports: Arthritis Psychiatric Medical History: Reports: Bipolar Disorder, Depression - PTSD, Post Traumatic Stress Disorder Hematology: Reports: Anemia - medicated Denies: Sickle Cell Disease Past Surgical History Past Surgical History: Reports: Orthopedic Surgery - cervical & lumbar laminectomies orif L lis franc Denies: Pacemaker Social History Smoking Status: Unknown if Ever Smoked Frequency of Alcohol Use: None Hx Recreational Drug Use: No Hx Prescription Drug Abuse: No - Advance Directive Resuscitation Status: Full Code Family History Family History: Reviewed & Not Pertinent, Arthritis, CAD, CVA, Hyperlipidemia, Hypertension, Malignancy. denies: DM, Thyroid Disfunction Parental Family History Reviewed: No Children Family History Reviewed: No Sibling(s) Family History Reviewed.: No Medication/Allergy Home Medications: Aspirin [Aspirin EC] 81 mg PO DAILY 08/21/14 Benztropine Mesylate 1 mg PO Q12 08/21/14 Ferrous Sulfate 324 mg PO DAILY 08/21/14 Folic Acid 1 mg PO DAILY 08/21/14 Lisinopril/Hydrochlorothiazide [Lisinopril-Hctz 20-12.5 mg Tab] 1 each PO QAM 08/21/14 Metformin HCl [Glucophage 500 mg Tablet] 500 mg PO BID 08/21/14 Risperidone [Risperdal] 0.5 mg PO Q12 08/21/14 Silodosin [Rapaflo] 8 mg PO DAILY 08/21/14 Tramadol HCl 50 mg PO BID PRN 08/21/14 Hydroxyzine Pamoate 25 - 50 mg PO QHS 02/25/15 Pravastatin Sodium [Pravachol] 40 mg PO DAILY 02/25/15 Bupropion HCl [Buproban] 150 mg PO QAM 02/28/15 Bupropion HCl [Bupropion HCl Sr] 100 mg PO QPM 02/28/15 Metoprolol Tartrate [Lopressor 50 mg Tablet] 50 mg PO Q12 #60 tablet 03/02/15 Levothyroxine Sodium [Synthroid 50 Mcg Tablet] 50 mcg PO QAM 01/09/16 Besifloxacin HCl [Besivance] 1 drop OP .12, 3 & 8 PM TODAY 01/10/16 Difluprednate [Durezol] 1 drop OP .12, 3 & 8 PM TODAY 01/10/16 Nepafenac [Ilevro] 1 drop OP .12, 3 & 8 PM TODAY 01/10/16 Cephalexin Monohydrate [Keflex 500 mg Capsule] 500 mg PO Q6H 7 Days #28 capsule 08/12/18 Sulfamethoxazole/Trimethoprim [Bactrim Ds Tablet] 1 each PO BID 10 Days #20 tablet 10/30/18 Allergies/Adverse Reactions: acetaminophen [From Tylenol] Adverse Reaction (Verified 11/24/18 11:12) steroids Adverse Reaction (Intermediate, Uncoded 11/24/18 11:12) elevated bp Review of Systems Constitutional: ABSENT: chills, fever(s), headache(s), weight gain, weight loss Cardiovascular: ABSENT: chest pain, dyspnea on exertion, edema, orthropnea, palpitations Respiratory: ABSENT: cough, hemoptysis Gastrointestinal: ABSENT: abdominal pain, constipation, diarrhea, hematemesis, hematochezia, nausea, vomiting Genitourinary: PRESENT: difficulty urinating, other - Strong odor to his urine Neurological: ABSENT: abnormal gait, abnormal speech, confusion, dizziness, focal weakness, syncope Psychiatric: ABSENT: anxiety, depression, homidical ideation, suicidal ideation Physical Exam Vital Signs: Temp Pulse Resp BP Pulse Ox 97.9 F 72 20 107/62 100 08/23/19 14:48 08/23/19 14:48 08/23/19 14:48 08/23/19 14:48 08/23/19 14:48 Intake & Output 08/22/19 08/23/19 08/24/19 06:59 06:59 06:59 Weight 95.7 kg General appearance: PRESENT: no acute distress Respiratory exam: PRESENT: clear to auscultation sonia. ABSENT: rales, rhonchi, wheezes Cardiovascular exam: PRESENT: RRR. ABSENT: diastolic murmur, rubs, systolic murmur Neurological exam: PRESENT: alert, awake, oriented to person, oriented to place, oriented to time, oriented to situation, CN II-XII grossly intact. ABSENT: motor sensory deficit Psychiatric exam: PRESENT: appropriate affect, normal mood. ABSENT: homicidal ideation, suicidal ideation Assessment and Plan - Diagnosis (1) Bipolar 1 disorder Is this a current diagnosis for this admission?: Yes (2) PTSD (post-traumatic stress disorder) Is this a current diagnosis for this admission?: Yes (3) Hypertension Is this a current diagnosis for this admission?: Yes (4) Atrial fibrillation Is this a current diagnosis for this admission?: Yes (5) Diabetes Is this a current diagnosis for this admission?: Yes (6) UTI (urinary tract infection) Is this a current diagnosis for this admission?: Yes - Plan Summary Summary: Most of patient's home medications will be resumed once they have been reconciled from the pharmacy. The meantime I did start him on cefepime 1 g IV every 12 hours. Fluids will be at KVO. Patient's diabetes medicine will be continued and will also be on a sliding scale as needed. Patient does not appear to be septic or toxic. I anticipate 3 to 5 days of IV antibiotics - Time Time Spent with patient: 35 or more minutes
[2019-08-23 16:56] LABS: INTERNATIONAL RATION (INR) 1.38; PROTHROMBIN TIME 17.1 SEC (11.4-15.4)
[2019-08-23] MEDS: NORMAL SALINE 1000 ML 1,000 ML IV PRN (17:21)
[2019-08-23] MEDS: ENOXAPARIN SODIUM INJ 40 MG/0.4 ML DISP.SYRIN SUBCUT SCH (17:32)
[2019-08-23] MEDS: CEFEPIME 1 GM/D5W RTU 1 GM/50 ML RTUPB IV SCH (17:35)
[2019-08-23] MEDS: INSULIN LISPRO 100 UNIT/ML 3 ML VIAL SUBCUT SCH ×2 (17:40→22:11)
[2019-08-23 17:46] LABS: FREE T3 2.73 pg/mL (2.77-5.27); FREE T4 (FREE THYROXINE) 0.97 ng/dL (0.78-2.19)
[2019-08-23 17:59] LABS: THYROID STIMULATING HORMONE 2.46 uIU/mL (0.47-4.68)
[2019-08-23] MEDS ORDERED: CEFEPIME 1 GM/D5W RTU 1 GM/50 ML RTUPB IV SCH (22:00)
[2019-08-23] MEDS: FAMOTIDINE 20 MG TABLET PO SCH (22:26)
[2019-08-24] MEDS: CEFEPIME 1 GM/D5W RTU 1 GM/50 ML RTUPB IV SCH ×2 (05:34→17:35)
[2019-08-24] MEDS: INSULIN LISPRO 100 UNIT/ML 3 ML VIAL SUBCUT SCH ×4 (08:47→22:31)
[2019-08-24 08:53] LABS: ABSOLUTE BASOPHILS # (AUTO) 0.1 10^3/uL (0.0-0.2); ABSOLUTE EOSINOPHILS # (AUTO) 0.1 10^3/uL (0.0-0.6); ABSOLUTE LYMPHOCYTES (AUTO) 1.2 10^3/uL (0.5-4.7); ABSOLUTE MONOCYTES (AUTO) 0.4 10^3/uL (0.1-1.4); ABSOLUTE NEUT (AUTO) 3.8 10^3/uL (1.7-8.2); EOSINOPHILS % (AUTO) 2.4 % (0-6); HEMATOCRIT 32.7 % (37.9-51.0); HEMOGLOBIN 11.4 g/dL (13.5-17.0); LYMPHOCYTES % (AUTO) 21.6 % (13-45); MEAN CORPUSCULAR HGB CONC 34.9 g/dL (32.0-36.0); MEAN CORPUSCULAR VOLUME 89 fl (80-97); MONOCYTES % (AUTO) 7.8 % (3-13); PLATELET COUNT 319 10^3/uL (150-450); RED BLOOD COUNT 3.69 10^6/uL (4.35-5.55); RED CELL DISTRIBUTION WIDTH 13.6 % (11.5-14.0); SEGMENTED NEUTROPHILS % (AUTO) 67.2 % (42-78); TOTAL CELLS COUNTED % (AUTO) 100 %; WHITE BLOOD COUNT 5.6 10^3/uL (4.0-10.5)
[2019-08-24 09:10] LABS: ALBUMIN 3.5 g/dL (3.5-5.0); ALKALINE PHOSPHATASE 72 U/L (38-126); ANION GAP 10 (5-19); ASPARTATE AMINO TRANSFERASE 16 U/L (17-59); BILIRUBIN,DIRECT 0.3 mg/dL (0.0-0.4); BILIRUBIN,TOTAL 0.4 mg/dL (0.2-1.3); BLOOD UREA NITROGEN 13 mg/dL (7-20); CALCIUM 8.6 mg/dL (8.4-10.2); CARBON DIOXIDE 25 mmol/L (22-30); CHLORIDE 94 mmol/L (98-107); GLUCOSE 95 mg/dL (75-110); POTASSIUM 4.9 mmol/L (3.6-5.0); TOTAL PROTEIN 6.3 g/dL (6.3-8.2)
[2019-08-24] MEDS: FAMOTIDINE 20 MG TABLET PO SCH ×2 (09:39→22:22)
[2019-08-24] MEDS: DOCUSATE SODIUM 100 MG CAPSULE PO SCH (09:39)
[2019-08-24] MEDS: ENOXAPARIN SODIUM INJ 40 MG/0.4 ML DISP.SYRIN SUBCUT SCH (09:40)
--- NOTE | 2019-08-24 12:38 | PDOC PROGRESS REPORT ---
Subjective Progress Note for:: 08/24/19 Reason For Visit: 1 DRUG-RESISTANT UTI, #2 HYPERTENSION, #3 DIABETES 08/24/2019 Drug resistant UTI, hypertension, diabetes, depression, posttraumatic stress disorder Physical Exam Vital Signs: Temp Pulse Resp BP Pulse Ox 97.8 F 63 20 122/72 100 08/24/19 08:01 08/24/19 08:01 08/24/19 08:01 08/24/19 08:01 08/24/19 08:01 Intake & Output 08/23/19 08/24/19 08/25/19 06:59 06:59 06:59 Intake Total 930 Balance 930 Weight 95 kg General appearance: PRESENT: no acute distress Respiratory exam: PRESENT: clear to auscultation sonia. ABSENT: rales, rhonchi, wheezes Cardiovascular exam: PRESENT: RRR. ABSENT: diastolic murmur, rubs, systolic murmur Neurological exam: PRESENT: alert, awake, oriented to person, oriented to place, oriented to time, oriented to situation, CN II-XII grossly intact. ABSENT: motor sensory deficit Psychiatric exam: PRESENT: appropriate affect, normal mood. ABSENT: homicidal ideation, suicidal ideation Results Laboratory Results: 08/24/19 07:39 08/24/19 07:39 08/23/19 08/23/19 08/24/19 16:39 16:39 07:39 WBC 5.6 RBC 3.69 L Hgb 11.4 L Hct 32.7 L MCV 89 MCH 31.0 MCHC 34.9 RDW 13.6 Plt Count 319 Seg Neutrophils % 67.2 Sodium Potassium Chloride Carbon Dioxide Anion Gap BUN Creatinine 1.16 Est GFR ( Amer) > 60 Glucose Calcium Total Bilirubin AST Alkaline Phosphatase Total Protein Albumin TSH 2.46 Free T4 0.97 Free T3 pg/mL 2.73 L 08/24/19 07:39 WBC RBC Hgb Hct MCV MCH MCHC RDW Plt Count Seg Neutrophils % Sodium 129.3 L Potassium 4.9 Chloride 94 L Carbon Dioxide 25 Anion Gap 10 BUN 13 Creatinine 1.10 Est GFR ( Amer) > 60 Glucose 95 Calcium 8.6 Total Bilirubin 0.4 AST 16 L Alkaline Phosphatase 72 Total Protein 6.3 Albumin 3.5 TSH Free T4 Free T3 pg/mL Assessment and Plan - Diagnosis (1) Bipolar 1 disorder Is this a current diagnosis for this admission?: Yes (2) PTSD (post-traumatic stress disorder) Is this a current diagnosis for this admission?: Yes (3) Hypertension Is this a current diagnosis for this admission?: Yes (4) Atrial fibrillation Is this a current diagnosis for this admission?: Yes (5) Diabetes Is this a current diagnosis for this admission?: Yes (6) UTI (urinary tract infection) Is this a current diagnosis for this admission?: Yes - Plan Summary Summary: Most of patient's home medications will be resumed once they have been reconciled from the pharmacy. The meantime I did start him on cefepime 1 g IV every 12 hours. Fluids will be at KVO. Patient's diabetes medicine will be continued and will also be on a sliding scale as needed. Patient does not appear to be septic or toxic. I anticipate 3 to 5 days of IV antibiotics 08/24/2019 Temperature 97.8 pulse 63, blood pressure 122/72, O2 sat 100% on room air Patient has no complaints at all he is sitting up in bed eating I have reconciled his home medications Plan to keep patient on IV antibiotics for 3 to 5 days and then discharge patient back home Labs show sodium slightly low at 129 chloride low at 94 creatinine is improved at 1.10 leukosis running proximally 95 to 115 - Time Time Spent with patient: 15-24 minutes
[2019-08-24] MEDS ORDERED: (PENDING PHARMACY ID) (Citalopram Hydrobromide [Citalopram Hbr] 20 MG) PO SCH (12:45)
[2019-08-24] MEDS: METFORMIN HCL 500 MG TABLET PO SCH (15:14)
[2019-08-24] MEDS: RISPERIDONE 1 MG TABLET PO SCH (15:16)
[2019-08-24] MEDS: VERAPAMIL HCL 240 MG TABLET.SA PO SCH (15:16)
[2019-08-24] MEDS: CITALOPRAM HYDROBROMIDE 20 MG TABLET PO SCH (15:17)
[2019-08-24] MEDS: BUPROPION HCL 75 MG TABLET PO SCH (17:35)
[2019-08-24] MEDS: BENZTROPINE MESYLATE 1 MG TABLET PO SCH (17:35)
[2019-08-24] MEDS: LUBIPROSTONE 24 MCG CAPSULE PO SCH (17:35)
[2019-08-24] MEDS: METOPROLOL SUCCINATE 25 MG TAB.SR.24H PO SCH (22:22)
[2019-08-25] MEDS: NORMAL SALINE 1000 ML 1,000 ML IV PRN (02:21)
[2019-08-25] MEDS: LEVOTHYROXINE SODIUM 0.05 MG TABLET PO SCH (06:17)
[2019-08-25] MEDS: CEFEPIME 1 GM/D5W RTU 1 GM/50 ML RTUPB IV SCH ×2 (06:18→17:34)
[2019-08-25] MEDS: CITALOPRAM HYDROBROMIDE 20 MG TABLET PO SCH (08:44)
[2019-08-25] MEDS: VERAPAMIL HCL 240 MG TABLET.SA PO SCH (08:44)
[2019-08-25] MEDS: INSULIN LISPRO 100 UNIT/ML 3 ML VIAL SUBCUT SCH ×4 (08:45→21:50)
[2019-08-25] MEDS ORDERED: RIVAROXABAN 10 MG TABLET PO SCH (10:00)
[2019-08-25] MEDS ORDERED: (PENDING PHARMACY ID) (Lisinopril/Hydrochlorothiazide [Lisinopril-Hctz 20-12.5 Mg Tab] 1 T PO SCH (10:00)
[2019-08-25] MEDS: BUPROPION HCL 75 MG TABLET PO SCH ×2 (10:06→21:56)
[2019-08-25] MEDS: FOLIC ACID 1 MG TABLET PO SCH (10:06)
[2019-08-25] MEDS: DOCUSATE SODIUM 100 MG CAPSULE PO SCH (10:06)
[2019-08-25] MEDS: FAMOTIDINE 20 MG TABLET PO SCH ×2 (10:06→21:56)
[2019-08-25] MEDS: LISINOPRIL 10 MG TABLET PO SCH (10:07)
[2019-08-25] MEDS: METOPROLOL SUCCINATE 25 MG TAB.SR.24H PO SCH ×2 (10:07→21:56)
[2019-08-25] MEDS: LUBIPROSTONE 24 MCG CAPSULE PO SCH ×2 (10:07→17:34)
[2019-08-25] MEDS: FERROUS SULFATE 325 MG TABLET PO SCH (10:07)
[2019-08-25] MEDS: RISPERIDONE 1 MG TABLET PO SCH (10:08)
[2019-08-25] MEDS: AMLODIPINE BESYLATE 5 MG TABLET PO SCH (10:08)
[2019-08-25] MEDS: METFORMIN HCL 500 MG TABLET PO SCH (10:09)
[2019-08-25] MEDS: BENZTROPINE MESYLATE 1 MG TABLET PO SCH ×2 (10:09→17:34)
[2019-08-25] MEDS: HYDROCHLOROTHIAZIDE 12.5 MG TABLET PO SCH (10:09)
[2019-08-25] MEDS: ASPIRIN 81 MG TABLET, ENT COATED PO SCH (10:09)
[2019-08-25] MEDS ORDERED: PHENAZOPYRIDINE HCL 200 MG TABLET PO PRN (12:06)
--- NOTE | 2019-08-25 12:12 | PDOC PROGRESS REPORT ---
Subjective Progress Note for:: 08/25/19 Reason For Visit: 1 DRUG-RESISTANT UTI, #2 HYPERTENSION, #3 DIABETES 08/25/2019 Resistant UTI, hypertension, diabetes Physical Exam Vital Signs: Temp Pulse Resp BP Pulse Ox 98.1 F 60 17 98/68 L 97 08/25/19 00:17 08/25/19 00:17 08/25/19 00:17 08/25/19 00:17 08/25/19 00:17 Intake & Output 08/24/19 08/25/19 08/26/19 06:59 06:59 06:59 Intake Total 930 2620 50 Balance 930 2620 50 Weight 95 kg 94.2 kg General appearance: PRESENT: no acute distress Respiratory exam: PRESENT: clear to auscultation sonia. ABSENT: rales, rhonchi, wheezes Cardiovascular exam: PRESENT: RRR. ABSENT: diastolic murmur, rubs, systolic murmur Gentrourinary exam: PRESENT: other - Patient complains of dysuria Neurological exam: PRESENT: alert, awake, oriented to person, oriented to place, oriented to time, oriented to situation, CN II-XII grossly intact. ABSENT: motor sensory deficit Psychiatric exam: PRESENT: appropriate affect, normal mood. ABSENT: homicidal ideation, suicidal ideation Results Laboratory Results: 08/24/19 07:39 08/24/19 07:39 Assessment and Plan - Diagnosis (1) Bipolar 1 disorder Is this a current diagnosis for this admission?: Yes (2) PTSD (post-traumatic stress disorder) Is this a current diagnosis for this admission?: Yes (3) Hypertension Is this a current diagnosis for this admission?: Yes (4) Atrial fibrillation Is this a current diagnosis for this admission?: Yes (5) Diabetes Is this a current diagnosis for this admission?: Yes (6) UTI (urinary tract infection) Is this a current diagnosis for this admission?: Yes - Plan Summary Summary: Most of patient's home medications will be resumed once they have been reconciled from the pharmacy. The meantime I did start him on cefepime 1 g IV every 12 hours. Fluids will be at KVO. Patient's diabetes medicine will be continued and will also be on a sliding scale as needed. Patient does not appear to be septic or toxic. I anticipate 3 to 5 days of IV antibiotics 08/24/2019 Temperature 97.8 pulse 63, blood pressure 122/72, O2 sat 100% on room air Patient has no complaints at all he is sitting up in bed eating I have reconciled his home medications Plan to keep patient on IV antibiotics for 3 to 5 days and then discharge patient back home Labs show sodium slightly low at 129 chloride low at 94 creatinine is improved at 1.10 . Glucose running proximally 95 to 115 08/25/2019 All of patient's vital signs are stable in particular he is afebrile CBC is grossly normal Hemoglobin A1c is 5.7 Patient is complaining of some dysuria with voiding. Patient is complaining of some dysuria with voiding I we will add Pyridium as needed I discussed this with the patient and his - Time Time Spent with patient: 15-24 minutes
--- NOTE | 2019-08-25 13:50 | CDI QUERY ---
CDI Query CDI Review: Dear Provider, To better reflect your patients severity of illness, morbidity, and resource utilization Please LINK any condition to present on admission, if applicable. The terms probable, suspected, likely, possible or still to be ruled ou t may be used. If you agree, please add to the Progress Notes and Discharge Summary Query Clinical indicators PLEASE SPECIFY TYPE AFIB CHRONIC PERSISTENT PERMANENT PAROXYSMAL OTHER A FIB DOCUMENTED XARELTO Thank you, Clinical Documentation Physician Advisors ELISHA Castillo RN, BSN RN Office [phone] Office [phone]
[2019-08-26] MEDS: LEVOTHYROXINE SODIUM 0.05 MG TABLET PO SCH (06:36)
[2019-08-26] MEDS: CEFEPIME 1 GM/D5W RTU 1 GM/50 ML RTUPB IV SCH ×2 (06:37→17:32)
[2019-08-26] MEDS: INSULIN LISPRO 100 UNIT/ML 3 ML VIAL SUBCUT SCH ×4 (09:00→22:03)
[2019-08-26] MEDS: ASPIRIN 81 MG TABLET, ENT COATED PO SCH (09:25)
[2019-08-26] MEDS: FERROUS SULFATE 325 MG TABLET PO SCH (09:25)
[2019-08-26] MEDS: FAMOTIDINE 20 MG TABLET PO SCH ×2 (09:26→21:18)
[2019-08-26] MEDS: CITALOPRAM HYDROBROMIDE 20 MG TABLET PO SCH (09:26)
[2019-08-26] MEDS: DOCUSATE SODIUM 100 MG CAPSULE PO SCH (09:26)
[2019-08-26] MEDS: BUPROPION HCL 75 MG TABLET PO SCH ×2 (09:28→21:19)
[2019-08-26] MEDS: METFORMIN HCL 500 MG TABLET PO SCH (09:28)
[2019-08-26] MEDS: BENZTROPINE MESYLATE 1 MG TABLET PO SCH ×2 (09:28→17:33)
[2019-08-26] MEDS: AMLODIPINE BESYLATE 5 MG TABLET PO SCH (09:29)
[2019-08-26] MEDS: LUBIPROSTONE 24 MCG CAPSULE PO SCH ×2 (09:29→17:33)
[2019-08-26] MEDS: HYDROCHLOROTHIAZIDE 12.5 MG TABLET PO SCH (09:30)
[2019-08-26] MEDS: LISINOPRIL 10 MG TABLET PO SCH (09:31)
[2019-08-26] MEDS: METOPROLOL SUCCINATE 25 MG TAB.SR.24H PO SCH ×2 (09:32→21:18)
[2019-08-26] MEDS: FOLIC ACID 1 MG TABLET PO SCH (09:32)
[2019-08-26] MEDS: RIVAROXABAN 10 MG TABLET PO SCH (09:33)
[2019-08-26] MEDS: RISPERIDONE 1 MG TABLET PO SCH (09:36)
[2019-08-26] MEDS: NORMAL SALINE 1000 ML 1,000 ML IV PRN (09:41)
[2019-08-26] MEDS: VERAPAMIL HCL 240 MG TABLET.SA PO SCH (11:08)
--- NOTE | 2019-08-26 12:10 | PDOC PROGRESS REPORT ---
Subjective Progress Note for:: 08/26/19 Reason For Visit: 1 DRUG-RESISTANT UTI, #2 HYPERTENSION, #3 DIABETES 08/26/2019 Drug-resistant UTI, hypertension, diabetes, atrial fib by history Physical Exam Vital Signs: Temp Pulse Resp BP Pulse Ox 97.1 F 67 18 89/66 L 100 08/26/19 11:33 08/26/19 11:33 08/26/19 11:33 08/26/19 11:33 08/26/19 11:33 Intake & Output 08/25/19 08/26/19 08/27/19 06:59 06:59 06:59 Intake Total 2620 1200 990 Balance 2620 1200 990 Weight 94.2 kg 94.9 kg General appearance: PRESENT: no acute distress, other Respiratory exam: PRESENT: clear to auscultation sonia. ABSENT: rales, rhonchi, wheezes Cardiovascular exam: PRESENT: RRR. ABSENT: diastolic murmur, rubs, systolic murmur Neurological exam: PRESENT: alert, awake, oriented to person, oriented to place, oriented to time, oriented to situation, CN II-XII grossly intact. ABSENT: motor sensory deficit Psychiatric exam: PRESENT: appropriate affect, normal mood. ABSENT: homicidal ideation, suicidal ideation Results Laboratory Results: 08/24/19 07:39 08/24/19 07:39 Assessment and Plan - Diagnosis (1) Bipolar 1 disorder Is this a current diagnosis for this admission?: Yes (2) PTSD (post-traumatic stress disorder) Is this a current diagnosis for this admission?: Yes (3) Hypertension Is this a current diagnosis for this admission?: Yes (4) Atrial fibrillation Is this a current diagnosis for this admission?: Yes (5) Diabetes Is this a current diagnosis for this admission?: Yes (6) UTI (urinary tract infection) Is this a current diagnosis for this admission?: Yes - Plan Summary Summary: Most of patient's home medications will be resumed once they have been reconciled from the pharmacy. The meantime I did start him on cefepime 1 g IV every 12 hours. Fluids will be at KVO. Patient's diabetes medicine will be continued and will also be on a sliding scale as needed. Patient does not appear to be septic or toxic. I anticipate 3 to 5 days of IV antibiotics 08/24/2019 Temperature 97.8 pulse 63, blood pressure 122/72, O2 sat 100% on room air Patient has no complaints at all he is sitting up in bed eating I have reconciled his home medications Plan to keep patient on IV antibiotics for 3 to 5 days and then discharge patient back home Labs show sodium slightly low at 129 chloride low at 94 creatinine is improved at 1.10 . Glucose running proximally 95 to 115 08/25/2019 All of patient's vital signs are stable in particular he is afebrile CBC is grossly normal Hemoglobin A1c is 5.7 Patient is complaining of some dysuria with voiding. Patient is complaining of some dysuria with voiding I we will add Pyridium as needed I discussed this with the patient and his 08/26/2019 EKG is pending today. I will try to determine if patient is currently in atrial fib Patient took 1 Pyridium last night and says that it did not help. Try another this morning. He has taken this in the past and they have worked in the past for burning and stinging with urination Patient and his would like him to be discharged tomorrow if at all possible. It looks as though the Pseudomonas would be sensitive to the cephalosporins but not sensitive to the fluoroquinolones. Also sensitive to the carbapemes Previous urine had E. coli which was also sensitive to the cephalosporins this was about 3 weeks ago I will discharge patient home on Keflex 500 mg 3 times daily for 5 days - Time Time Spent with patient: 25-34 minutes
--- NOTE | 2019-08-26 14:54 | EKG REPORT ---
SEVERITY:- OTHERWISE NORMAL ECG - SINUS RHYTHM ATRIAL PREMATURE COMPLEX : Confirmed by: Riya Quinteros MD 26-Aug-2019 14:52:44
[2019-08-27] MEDS: LEVOTHYROXINE SODIUM 0.05 MG TABLET PO SCH (05:51)
[2019-08-27] MEDS: CEFEPIME 1 GM/D5W RTU 1 GM/50 ML RTUPB IV SCH (05:51)
[2019-08-27 09:11] LABS: ABSOLUTE BASOPHILS # (AUTO) 0.1 10^3/uL (0.0-0.2); ABSOLUTE EOSINOPHILS # (AUTO) 0.2 10^3/uL (0.0-0.6); ABSOLUTE LYMPHOCYTES (AUTO) 1.6 10^3/uL (0.5-4.7); ABSOLUTE MONOCYTES (AUTO) 0.4 10^3/uL (0.1-1.4); ABSOLUTE NEUT (AUTO) 5.1 10^3/uL (1.7-8.2); BASOPHILS % (AUTO) 1.2 % (0-2); EOSINOPHILS % (AUTO) 2.7 % (0-6); HEMATOCRIT 35.9 % (37.9-51.0); HEMOGLOBIN 12.4 g/dL (13.5-17.0); LYMPHOCYTES % (AUTO) 21.4 % (13-45); MEAN CORPUSCULAR HEMOGLOBIN 30.6 pg (27.0-33.4); MEAN CORPUSCULAR HGB CONC 34.5 g/dL (32.0-36.0); MEAN CORPUSCULAR VOLUME 89 fl (80-97); PLATELET COUNT 357 10^3/uL (150-450); RED BLOOD COUNT 4.04 10^6/uL (4.35-5.55); RED CELL DISTRIBUTION WIDTH 13.9 % (11.5-14.0); SEGMENTED NEUTROPHILS % (AUTO) 68.7 % (42-78); TOTAL CELLS COUNTED % (AUTO) 100 %; WHITE BLOOD COUNT 7.5 10^3/uL (4.0-10.5)
[2019-08-27] MEDS: RISPERIDONE 1 MG TABLET PO SCH (09:23)
[2019-08-27] MEDS: LISINOPRIL 10 MG TABLET PO SCH (09:24)
[2019-08-27] MEDS: METFORMIN HCL 500 MG TABLET PO SCH (09:24)
[2019-08-27] MEDS: HYDROCHLOROTHIAZIDE 12.5 MG TABLET PO SCH (09:25)
[2019-08-27] MEDS: METOPROLOL SUCCINATE 25 MG TAB.SR.24H PO SCH (09:25)
[2019-08-27] MEDS: FAMOTIDINE 20 MG TABLET PO SCH (09:25)
[2019-08-27] MEDS: DOCUSATE SODIUM 100 MG CAPSULE PO SCH (09:25)
[2019-08-27] MEDS: BENZTROPINE MESYLATE 1 MG TABLET PO SCH (09:25)
[2019-08-27] MEDS: ASPIRIN 81 MG TABLET, ENT COATED PO SCH (09:25)
[2019-08-27] MEDS: AMLODIPINE BESYLATE 5 MG TABLET PO SCH (09:25)
[2019-08-27] MEDS: FOLIC ACID 1 MG TABLET PO SCH (09:25)
[2019-08-27] MEDS: LUBIPROSTONE 24 MCG CAPSULE PO SCH (09:25)
[2019-08-27] MEDS: FERROUS SULFATE 325 MG TABLET PO SCH (09:25)
[2019-08-27] MEDS: BUPROPION HCL 75 MG TABLET PO SCH (09:26)
[2019-08-27] MEDS: VERAPAMIL HCL 240 MG TABLET.SA PO SCH (09:26)
[2019-08-27] MEDS: CITALOPRAM HYDROBROMIDE 20 MG TABLET PO SCH (09:26)
[2019-08-27] MEDS: RIVAROXABAN 10 MG TABLET PO SCH (09:26)
[2019-08-27] MEDS: INSULIN LISPRO 100 UNIT/ML 3 ML VIAL SUBCUT SCH ×2 (09:28→12:42)
[2019-08-27 09:35] LABS: ANION GAP 8 (5-19); BLOOD UREA NITROGEN 16 mg/dL (7-20); CALCIUM 9.2 mg/dL (8.4-10.2); CARBON DIOXIDE 27 mmol/L (22-30); CHLORIDE 96 mmol/L (98-107); GLUCOSE 92 mg/dL (75-110)
[2019-08-27 10:25] LABS: APPEARANCE,URINE CLEAR; BILIRUBIN,URINE NEGATIVE (NEGATIVE); COLOR,URINE YELLOW; GLUCOSE, URINE NEGATIVE (NEGATIVE); KETONES,URINE NEGATIVE (NEGATIVE); PROTEIN,URINE NEGATIVE (NEGATIVE); URINE SPECIFIC GRAVITY 1.013; UROBILINOGEN,URINE NEGATIVE mg/dL (<2.0)
--- NOTE | 2019-08-27 11:17 | PDOC DISCHARGE SUMMARY ---
Impression - Admit/DC Date/PCP Admission Date/Primary Care Provider: 08/23/19 14:17 SILAS BRENNAN MD Discharge Date: 08/27/19 - Discharge Diagnosis (1) Bipolar 1 disorder Is this a current diagnosis for this admission?: Yes (2) PTSD (post-traumatic stress disorder) Is this a current diagnosis for this admission?: Yes (3) Hypertension Is this a current diagnosis for this admission?: Yes (4) Diabetes Is this a current diagnosis for this admission?: Yes (5) UTI (urinary tract infection) Is this a current diagnosis for this admission?: Yes (6) Paroxysmal chronic atrial fib Is this a current diagnosis for this admission?: Yes - Assessment Summary: Most of patient's home medications will be resumed once they have been reconciled from the pharmacy. The meantime I did start him on cefepime 1 g IV every 12 hours. Fluids will be at KVO. Patient's diabetes medicine will be continued and will also be on a sliding scale as needed. Patient does not appear to be septic or toxic. I anticipate 3 to 5 days of IV antibiotics 08/24/2019 Temperature 97.8 pulse 63, blood pressure 122/72, O2 sat 100% on room air Patient has no complaints at all he is sitting up in bed eating I have reconciled his home medications Plan to keep patient on IV antibiotics for 3 to 5 days and then discharge patient back home Labs show sodium slightly low at 129 chloride low at 94 creatinine is improved at 1.10 . Glucose running proximally 95 to 115 08/25/2019 All of patient's vital signs are stable in particular he is afebrile CBC is grossly normal Hemoglobin A1c is 5.7 Patient is complaining of some dysuria with voiding. Patient is complaining of some dysuria with voiding I we will add Pyridium as needed I discussed this with the patient and his 08/26/2019 EKG is pending today. I will try to determine if patient is currently in atrial fib Patient took 1 Pyridium last night and says that it did not help. Try another this morning. He has taken this in the past and they have worked in the past for burning and stinging with urination Patient and his would like him to be discharged tomorrow if at all possible. It looks as though the Pseudomonas would be sensitive to the cephalosporins but not sensitive to the fluoroquinolones. Also sensitive to the carbapemes Previous urine had E. coli which was also sensitive to the cephalosporins this was about 3 weeks ago I will discharge patient home on Keflex 500 mg 3 times daily for 5 days 08/27/2019 Morning's lab reveal continued normal white blood cell count 7.5 hemoglobin 12.4 platelets 357,000 Chemistry revealed sodium 131 potassium up slightly at 5.0 however this appears to be patient's baseline in reviewing previous records BUN of 16 creatinine 1.02 GFR greater than 60 glucose 92 calcium 9.2 Urinalysis this morning was clear specific gravity 1.013- protein negative glucose small amount of blood negative nitrates negative leukocytes Patient was discharged home on Keflex 500 mg 3 times daily for 5 days Patient and his are asking to be discharged. Patient appears to be medically stable - Additional Information Resuscitation Status: Full Code Discharge Diet: Diabetic Discharge Activity: Activity As Tolerated Referrals: SILAS BRENNAN MD [Primary Care Provider] - Prescriptions: Cephalexin Monohydrate [Keflex 500 mg Capsule] 500 mg PO TID 5 Days #15 capsule Home Medications: Acetaminophen [Tylenol 325 mg Tablet] 325 mg PO Q4HP PRN 08/24/19 Amlodipine Besylate [Norvasc 5 mg Tablet] 5 mg PO DAILY 08/24/19 Aspirin [Adult Low Dose Aspirin EC] 81 mg PO DAILY 08/24/19 Benztropine Mesylate [Cogentin 1 mg Tablet] 1 mg PO BID 08/24/19 Bupropion HCl [Bupropion HCl Sr] 100 mg PO QPM 08/24/19 Bupropion HCl [Bupropion HCl Sr] 150 mg PO QAM 08/24/19 Citalopram Hydrobromide [Citalopram HBr] 20 mg PO QAM 08/24/19 Ferrous Sulfate [Feosol 325 mg Tablet] 325 mg PO DAILY 08/24/19 Folic Acid [Folvite 1 mg Tablet] 1 mg PO DAILY 08/24/19 Folic Acid/Vit B Complex and C [Super B Complex Tablet] 400 mcg PO DAILY 08/24/19 Garlic 1,000 mg PO DAILY 08/24/19 Levothyroxine Sodium 50 mcg PO Q6AM 08/24/19 Lisinopril/Hydrochlorothiazide [Lisinopril-Hctz 20-12.5 mg Tab] 1 tab PO DAILY 08/24/19 Lubiprostone [Amitiza 24 Mcg Capsule] 24 mcg PO BID 08/24/19 Metformin HCl [Glucophage 500 mg Tablet] 500 mg PO DAILY 08/24/19 Metoprolol Succinate [Toprol Xl 25 mg Tab.sr] 25 mg PO BID 08/24/19 [place]-3/Dha/Epa/Fish Oil [Fish Oil 1,000 mg Softgel] 1 cap PO BIDBS 08/24/19 Pravastatin Sodium [Pravachol] 20 mg PO QHS 08/24/19 Risperidone [Risperdal 1 mg Tablet] 0.5 mg PO DAILY 08/24/19 Rivaroxaban [Xarelto] 20 mg PO DAILY 08/24/19 Verapamil HCl [Calan Sr 240 mg Tablet.sa] 240 mg PO QAM 08/24/19 Cephalexin Monohydrate [Keflex 500 mg Capsule] 500 mg PO TID 5 Days #15 capsule 08/27/19 History of Present Illiness History of Present Illness: CESAR ARCINIEGA is a 74 year old male has a history for the last years of repeated urinary tract infections.. Patient is a direct admission from Dr. Brennan urine culture that grew out Pseudomonas on 08/22/2019. It appeared to be sensitive to cefepime, imipenem, ,meropenem , and piperacillin. Born to the and the patient ever since 2014 he has had 2 or 3 urinary tract infections every year. Patient and his state that they have noticed this been going on now for the bout the last 2 months and he has not been on any antibiotics now for over a week. Multiple other medical problems including hypertension BPH bipolar and diabetes Is recent fever, chills, nausea or vomiting. Physical Exam Vital Signs: Temp Pulse Resp BP Pulse Ox 97.8 F 65 16 110/87 H 100 08/27/19 08:27 08/27/19 08:27 08/27/19 08:27 08/27/19 08:27 08/27/19 08:27 Intake & Output 08/26/19 08/27/19 08/28/19 06:59 06:59 06:59 Intake Total 1200 2170 Balance 1200 2170 Weight 94.9 kg 94.9 kg Results Laboratory Results: WBC 7.5 10^3/uL (4.0-10.5) 08/27/19 08:59 RBC 4.04 10^6/uL (4.35-5.55) L 08/27/19 08:59 Hgb 12.4 g/dL (13.5-17.0) L 08/27/19 08:59 Hct 35.9 % (37.9-51.0) L 08/27/19 08:59 MCV 89 fl (80-97) 08/27/19 08:59 MCH 30.6 pg (27.0-33.4) 08/27/19 08:59 MCHC 34.5 g/dL (32.0-36.0) 08/27/19 08:59 RDW 13.9 % (11.5-14.0) 08/27/19 08:59 Plt Count 357 10^3/uL (150-450) 08/27/19 08:59 Lymph % (Auto) 21.4 % (13-45) 08/27/19 08:59 [place] % (Auto) 6.0 % (3-13) 08/27/19 08:59 Eos % (Auto) 2.7 % (0-6) 08/27/19 08:59 Baso % (Auto) 1.2 % (0-2) 08/27/19 08:59 Absolute Neuts (auto) 5.1 10^3/uL (1.7-8.2) 08/27/19 08:59 Absolute Lymphs (auto) 1.6 10^3/uL (0.5-4.7) 08/27/19 08:59 Absolute Monos (auto) 0.4 10^3/uL (0.1-1.4) 08/27/19 08:59 Absolute Eos (auto) 0.2 10^3/uL (0.0-0.6) 08/27/19 08:59 Absolute Basos (auto) 0.1 10^3/uL (0.0-0.2) 08/27/19 08:59 Seg Neutrophils % 68.7 % (42-78) 08/27/19 08:59 PT 17.1 SEC (11.4-15.4) H 08/23/19 16:39 INR 1.38 08/23/19 16:39 APTT 32.6 SEC (23.5-35.8) 08/24/19 07:39 Sodium 131.3 mmol/L (137-145) L 08/27/19 08:59 Potassium 5.0 mmol/L (3.6-5.0) 08/27/19 08:59 Chloride 96 mmol/L (98-107) L 08/27/19 08:59 Carbon Dioxide 27 mmol/L (22-30) 08/27/19 08:59 Anion Gap 8 (5-19) 08/27/19 08:59 BUN 16 mg/dL (7-20) 08/27/19 08:59 Creatinine 1.02 mg/dL (0.52-1.25) 08/27/19 08:59 Est GFR ( Amer) > 60 (>60) 08/27/19 08:59 Est GFR (MDRD) Non-Af > 60 (>60) 08/27/19 08:59 Glucose 92 mg/dL (75-110) 08/27/19 08:59 POC Glucose 141 mg/dL (70-110) H 08/27/19 08:24 Hemoglobin A1c % 5.7 % (4.7-6.0) 08/24/19 07:39 Calcium 9.2 mg/dL (8.4-10.2) 08/27/19 08:59 Total Bilirubin 0.4 mg/dL (0.2-1.3) 08/24/19 07:39 Direct Bilirubin 0.3 mg/dL (0.0-0.4) 08/24/19 07:39 Neonat Total Bilirubin Not Reportable 08/24/19 07:39 Neonat Direct Bilirubin Not Reportable 08/24/19 07:39 Neonat Indirect Bili Not Reportable 08/24/19 07:39 AST 16 U/L (17-59) L 08/24/19 07:39 ALT 12 U/L (<50) 08/24/19 07:39 Alkaline Phosphatase 72 U/L (38-126) 08/24/19 07:39 Total Protein 6.3 g/dL (6.3-8.2) 08/24/19 07:39 Albumin 3.5 g/dL (3.5-5.0) 08/24/19 07:39 TSH 2.46 uIU/mL (0.47-4.68) 08/23/19 16:39 Free T4 0.97 ng/dL (0.78-2.19) 08/23/19 16:39 Free T3 pg/mL 2.73 pg/mL (2.77-5.27) L 08/23/19 16:39 Urine Color YELLOW 08/27/19 09:25 Urine Appearance CLEAR 08/27/19 09:25 Urine pH 6.0 (5.0-9.0) 08/27/19 09:25 Ur Specific [place] 1.013 08/27/19 09:25 Urine Protein NEGATIVE mg/dL (NEGATIVE) 08/27/19 09:25 Urine Glucose (UA) NEGATIVE mg/dL (NEGATIVE) 08/27/19 09:25 Urine Ketones NEGATIVE mg/dL (NEGATIVE) 08/27/19 09:25 Urine Blood SMALL (NEGATIVE) H 08/27/19 09:25 Urine Nitrite (Reflex) NEGATIVE (NEGATIVE) 08/27/19 09:25 Urine Bilirubin NEGATIVE (NEGATIVE) 08/27/19 09:25 Urine Urobilinogen NEGATIVE mg/dL (<2.0) 08/27/19 09:25 Leukocyte Esterase Rfl NEGATIVE (NEGATIVE) 08/27/19 09:25 Urine RBC (Auto) 44 /HPF 08/27/19 09:25 Urine WBC (Reflex) 10 /HPF 08/27/19 09:25 Squamous Epi Cells Auto <1 /HPF 08/27/19 09:25 Urine Mucus (Auto) RARE /LPF 08/27/19 09:25 Urine Ascorbic Acid NEGATIVE (NEGATIVE) 08/27/19 09:25 Stroke Is this a Stroke Patient?: No Acute Heart Failure - Is this a Heart Failure Patient?: No
[2019-08-27 12:25] VITALS: BP 91/74
== END 2019-08-27 12:55 | disposition home or self-care (01) | DRG 690 ==
LOC: 5 14:17
PROVIDERS: ADMIT Internal Medicine; ATTEND Hospitalist
DX: N39.0 Urinary tract infection, site not specified (principal); Z16.23 Resistance to quinolones and fluoroquinolones; E11.9 Type 2 diabetes mellitus without complications; B96.5 Pseudomonas (aeruginosa) (mallei) (pseudomallei) as the cause of diseases classified elsewhere; E03.9 Hypothyroidism, unspecified; D64.9 Anemia, unspecified; F31.9 Bipolar disorder, unspecified; F43.10 Post-traumatic stress disorder, unspecified; I10 Essential (primary) hypertension; I48.0 Paroxysmal atrial fibrillation; N40.0 Benign prostatic hyperplasia without lower urinary tract symptoms; E78.5 Hyperlipidemia, unspecified; M19.90 Unspecified osteoarthritis, unspecified site; Z79.84 Long term (current) use of oral hypoglycemic drugs; Z79.82 Long term (current) use of aspirin; Z87.440 Personal history of urinary (tract) infections; Z85.828 Personal history of other malignant neoplasm of skin; Z88.6 Allergy status to analgesic agent; Z88.8 Allergy status to other drugs, medicaments and biological substances; Z82.61 Family history of arthritis; Z82.49 Family history of ischemic heart disease and other diseases of the circulatory system; Z83.42 Family history of familial hypercholesterolemia
CPT/HCPCS: 36415; 80048; 80053; 81001; 82565; 82962; 83036; 84439; 84443; 84481; 85025; 85610; 85730; 87086; 93005; 93010; J0692; J1650; J3490; J7030

== ENCOUNTER 2019-08-29 09:20 | Observation (INO) | payer BC, MEDICARE ==
--- NOTE | 2019-08-29 10:06 | ER Document Report ---
ED Fall - General Chief Complaint: Fall Stated Complaint: FALL Time Seen by Provider: 08/29/19 09:37 Notes: HPI: 74-year-old male with past medical history as recorded including Parkinson's disease on Xarelto who presents today after 2 falls. He was discharged from the hospital recently around 2 days ago. Patient fell down his porch steps into the house at that time. Then yesterday 2 PM the patient was in the bathroom with his when he was standing and started to feel as if he was going to fall. states that he looked "a little pale". He fell and hit his left back as well as the back of his head. He did not lose consciousness. Patient has some gait instability secondary to Parkinson's disease. Patient denies any and all chest pain, shortness of breath, palpitations, focal weakness or numbness. He denies any headache. He is here secondary to the pain in his left posterior rib/back area ROS: See HPI All other review of systems reviewed and otherwise negative Reviewed vital signs and nursing note as charted by RN. PHYSICAL EXAM: CONSTITUTIONAL: Alert and oriented and responds appropriately to questions. W ell-appearing; well-nourished HEAD: Normocephalic; atraumatic EYES: PERRL; full extraocular range of motion. No nystagmus ENT: Normal nose; no rhinorrhea; moist mucous membranes; pharynx without lesions noted NECK: Supple without meningismus; non-tender; no cervical lymphadenopathy, no masses CARD: Regular rate and rhythm; no murmurs; symmetric distal pulses RESP: Normal chest excursion without splinting or tachypnea; some tenderness to the left posterior ribs without any obvious crepitus or swelling; bilateral breath sounds present; no wheezes, no rhonchi, no rales ABD/GI: Normal bowel sounds; non-distended; soft, non-tender; no abdominal bruit; no palpable organomegaly or masses BACK: The back appears normal and is non-tender to palpation EXT: Normal ROM in all joints; non-tender to palpation; no edema SKIN: No acute lesions noted NEURO: CN 2-12 intact; 5/5 bilateral upper and lower extremity strength with sensation intact to light touch PSYCH: The patient's mood and manner are appropriate. Grooming and personal hygiene are appropriate. TRAVEL OUTSIDE OF THE [place] IN LAST 30 DAYS: No - Related data Allergies/Adverse Reactions: acetaminophen [From Tylenol] Adverse Reaction (Verified 08/29/19 10:02) steroids Adverse Reaction (Intermediate, Uncoded 08/29/19 10:02) elevated bp Past Medical History - Social History Smoking Status: Unknown if Ever Smoked Family History: Reviewed & Not Pertinent, Arthritis, CAD, CVA, Hyperlipidemia, Hypertension, Malignancy. denies: DM, Thyroid Disfunction - Past Medical History Cardiac Medical History: Reports: Hx Atrial Fibrillation, Hx Hypercholesterolemia, Hx Hypertension - medicated Denies: Hx Coronary Artery Disease, Hx Heart Attack Pulmonary Medical History: Reports: Hx Pneumonia Denies: Hx Asthma Neurological Medical History: Denies: Hx Seizures Endocrine Medical History: Reports: Hx Diabetes Mellitus Type 2, Hx Hypothyroidism Renal/ Medical History: Reports: Hx Benign Prostatic Hyperplasia, Hx Kidney Stones. Denies: Hx Peritoneal Dialysis Malignancy Medical History: Reports Hx Skin Cancer GI Medical History: Reports: Hx Irritable Bowel, Hx Colonoscopy. Denies: Hx Hepatitis, Hx Hiatal Hernia, Hx Ulcer Musculoskeletal Medical History: Reports Hx Arthritis, Reports Hx Musculoskeletal Deformity, Reports Hx Musculoskeletal Trauma Psychiatric Medical History: Reports: Hx Anxiety, Hx Bipolar Disorder, Hx D epression - PTSD, Hx Post Traumatic Stress Disorder Traumatic Medical History: Reports: Hx Fractures - 3 weeks ago tripped vidant orif L lisfranc still nonweight bearing Infectious Medical History: Denies: Hx Hepatitis Past Surgical History: Reports: Hx Orthopedic Surgery - cervical & lumbar laminectomies orif L lis franc. Denies: Hx Open Heart Surgery, Hx Pacemaker - Immunizations Immunizations up to date: Yes Hx Diphtheria, Pertussis, Tetanus Vaccination: Yes - january 2015 Hx Pneumococcal Vaccination: 07/20/13 Physical Exam - Vital signs Vitals: Temp Pulse Resp BP Pulse Ox 97.7 F 66 16 93/54 L 96 08/29/19 10:00 08/29/19 10:00 08/29/19 10:00 08/29/19 10:00 08/29/19 10:00 Course - Re-evaluation Re-evalutation: 08/29/19 10:06 Given the above history and physical, on Xarelto, given the patient's age, we will obtain a CT scan of the head, as well as a renal colic noncontrast scan of the abdomen and pelvis to evaluate for the possibility of multiple rib fractures and/or retroperitoneal bleed. I will also order basic labs as well as a repeat urine analysis secondary to the recent discharge for urinary tract infection as well as an EKG given the falls. EKG shows a heart of 61, normal sinus rhythm, normal axis, no ST elevation or depression 08/29/19 12:28 Labs as recorded. Possible UTI. Patient had a very resistant Pseudomonas infection on his previous admission and discharge. He was given IV antibiotics and then discharged home on Keflex. Given the syncopal-like event with the fall, with white blood cells in the urine, urine culture has been sent and we will start the patient on cefepime according to previous cultures. Patient will be admitted. Patient's blood pressure was slightly low and a liter of fluid has been provided. - Vital Signs Vital signs: Temp Pulse Resp BP Pulse Ox 97.7 F 66 16 93/54 L 96 08/29/19 10:00 08/29/19 10:00 08/29/19 10:00 08/29/19 10:00 08/29/19 10:00 - Laboratory Result Diagrams: 08/29/19 10:34 08/29/19 10:34 Laboratory results interpreted by me: 08/29/19 08/29/19 08/29/19 10:34 10:34 10:42 RBC 3.73 L Hgb 11.8 L Hct 33.0 L Sodium 130.5 L Chloride 96 L Urine Blood MODERATE H Ur Leukocyte Esterase SMALL H Discharge - Discharge Clinical Impression: UTI (urinary tract infection) Qualifiers: Urinary tract infection type: acute cystitis Hematuria presence: with hematuria Qualified Code(s): N30.01 - Acute cystitis with hematuria Syncopal episodes Qualifiers: Syncope type: unspecified Qualified Code(s): R55 - Syncope and collapse Condition: Fair Disposition: ADMITTED OBSERVATION Admitting Provider: Leonila (Hospitalist) Unit Admitted: Telemetry
--- NOTE | 2019-08-29 10:36 | RADIOLOGY REPORT (SQ) ---
EXAM DESCRIPTION: CT HEAD WITHOUT COMPLETED DATE/TIME: 08/29/2019 10:22 am REASON FOR STUDY: 13; fall on XARELTO COMPARISON: CT of the head without contrast from 04/04/2018. TECHNIQUE: Axial images acquired through the brain without intravenous contrast. Images reviewed wi th bone, brain and subdural windows. Additional sagittal and coronal reconstructions were generated. Images stored on PACS. All CT scanners at this facility use dose modulation, iterative reconstruction, and/or weight based d osing when appropriate to reduce radiation dose to as low as reasonably achievable (ALARA). [facility]: Dose Right [facility]: CareDose [facility]: Dose Right [facility]: Teradose 4D [facility]: Jalbum RADIATION DOSE: CT Rad equipment meets quality standard of care and radiation dose reduction techniq ues were employed. CTDIvol: 53.2 mGy. DLP: 1070 mGy-cm. LIMITATIONS: None. FINDINGS: There is no acute intracranial hemorrhage, vascular territorial infarct, extra-axial fluid collection, mass effect or midline shift. There is no effacement of the cerebral sulci or basal sub arachnoid cisterns. The baez-white matter differentiation is preserved. The caliber of the ventricl es is concordant with the degree of sulcation. The globes are aphakic. The orbits are intact. There is no fracture of the calvarium. The paranasa l sinuses are clear. IMPRESSION: No acute intracranial abnormality. EVIDENCE OF ACUTE STROKE: NO. COMMENT: Quality ID # [id number]: Final reports with documentation of one or more dose reduction techniques (e.g., Automated exposure control, adjustment of the mA and/or kV according to patient size, use of iterative reconstruction technique) TECHNICAL DOCUMENTATION: JOB ID: [id number] 2010 [employer]- All Rights Reserved Reading location - IP/workstation name: [email or web address]
--- NOTE | 2019-08-29 10:37 | RADIOLOGY REPORT (SQ) ---
EXAM DESCRIPTION: CHEST 2 VIEWS COMPLETED DATE/TIME: 08/29/2019 10:25 am REASON FOR STUDY: 13; fall COMPARISON: AP view of the chest from 02/24/2015. EXAM PARAMETERS: NUMBER OF VIEWS: Two views. TECHNIQUE: PA and lateral views of the chest were obtained.. RADIATION DOSE: NA LIMITATIONS: none FINDINGS: LUNGS AND PLEURA: Right basilar atelectasis. There is no consolidation, pleural effusion or pneumothorax. MEDIASTINUM AND HILAR STRUCTURES: No mediastinal or hilar contour abnormality. HEART AND VASCULAR STRUCTURES: The cardiac silhouette and pulmonary vasculature are within normal jaramillo its. BONES: No acute findings. HARDWARE: None in the chest. OTHER: No other finding. IMPRESSION: No acute cardiopulmonary process. TECHNICAL DOCUMENTATION: JOB ID: [id number] 2010 [employer]- All Rights Reserved Reading location - IP/workstation name: [email or web address]
--- NOTE | 2019-08-29 10:45 | RADIOLOGY REPORT (SQ) ---
EXAM DESCRIPTION: CT ABD/PELVIS NO ORAL OR IV COMPLETED DATE/TIME: 08/29/2019 10:22 am REASON FOR STUDY: 13; fall on XARELTO COMPARISON: CT of the abdomen and pelvis without contrast from 11/24/2018. TECHNIQUE: CT scan of the abdomen and pelvis performed without intravenous or oral contrast. Images reviewed with lung, soft tissue, and bone windows. Reconstructed coronal and sagittal MPR images revi ewed. All images stored on PACS. All CT scanners at this facility use dose modulation, iterative reconstruction, and/or weight based d osing when appropriate to reduce radiation dose to as low as reasonably achievable (ALARA). [facility]: Dose Right [facility]: CareDose [facility]: Dose Right [facility]: Teradose 4D [facility]: [employer] RADIATION DOSE: CT Rad equipment meets quality standard of care and radiation dose reduction techniq ues were employed. CTDIvol: 14.4 mGy. DLP: 904 mGy-cm. LIMITATIONS: None. FINDINGS: LOWER CHEST: No acute findings. NON-CONTRASTED LIVER, SPLEEN, ADRENALS: Evaluation is limited due to the absence of intravenous contr ast. The morphology of the liver is non cirrhotic. There is no CT evidence hepatic steatosis. The hypodense lesions in the left lobe of the liver that measure up to 4.4 x 3.2 cm are stable in size an d number from the prior CT. The spleen is normal in size. There is no adrenal mass. PANCREAS: No acute gross abnormality. GALLBLADDER: No abnormality that is apparent on CT. RIGHT KIDNEY AND URETER: Evaluation is limited due to the absence of intravenous contrast. There is no hydronephrosis, nephrolithiasis, hydroureter or ureterolithiasis. LEFT KIDNEY AND URETER: Evaluation is limited due to the absence of intravenous contrast. There is a 7 mm calculus within a lower pole calyx. There is no associated hydronephrosis, hydroureter or uret erolithiasis. AORTA AND RETROPERITONEUM: No aneurysm of the abdominal aorta. No retroperitoneal adenopathy, hemorr tez or mass BOWEL AND PERITONEAL CAVITY: Colonic diverticulosis without diverticulitis. There is no bowel obstru ction, bowel wall thickening or pericolonic/ perienteric inflammation. There is no mesenteric adenop athy, free intraperitoneal fluid or mesenteric/omental inflammation. APPENDIX: Normal. PELVIS, BLADDER, AND ABDOMINAL WALL:Patulous trabeculated appearance of the urinary bladder. The pro state gland is enlarged. BONES: Laminectomy defects at L4 and L5. There is no acute fracture. OTHER: No other finding. IMPRESSION: 1. No acute intra-abdominal abnormality. 2. Colonic diverticulosis without diverticulitis. 3. 7 mm nonobstructive caliceal calculus in the lower pole of the left kidney. 4. Patulous trabeculated appearance of the urinary bladder. COMMENT: Quality ID # [id number]: Final reports with documentation of one or more dose reduction techniques (e.g., Automated exposure control, adjustment of the mA and/or kV according to patient size, use of iterative reconstruction technique) TECHNICAL DOCUMENTATION: JOB ID: [id number] 2010 [employer]- All Rights Reserved Reading location - IP/workstation name: [email or web address]
[2019-08-29 10:46] LABS: ABSOLUTE BASOPHILS # (AUTO) 0.1 10^3/uL (0.0-0.2); ABSOLUTE EOSINOPHILS # (AUTO) 0.2 10^3/uL (0.0-0.6); ABSOLUTE LYMPHOCYTES (AUTO) 1.6 10^3/uL (0.5-4.7); ABSOLUTE MONOCYTES (AUTO) 0.7 10^3/uL (0.1-1.4); ABSOLUTE NEUT (AUTO) 4.9 10^3/uL (1.7-8.2); BASOPHILS % (AUTO) 0.9 % (0-2); EOSINOPHILS % (AUTO) 2.1 % (0-6); HEMOGLOBIN 11.8 g/dL (13.5-17.0); LYMPHOCYTES % (AUTO) 21.8 % (13-45); MEAN CORPUSCULAR HEMOGLOBIN 31.6 pg (27.0-33.4); MEAN CORPUSCULAR HGB CONC 35.8 g/dL (32.0-36.0); MEAN CORPUSCULAR VOLUME 88 fl (80-97); MONOCYTES % (AUTO) 8.9 % (3-13); PLATELET COUNT 323 10^3/uL (150-450); RED BLOOD COUNT 3.73 10^6/uL (4.35-5.55); RED CELL DISTRIBUTION WIDTH 13.9 % (11.5-14.0); SEGMENTED NEUTROPHILS % (AUTO) 66.3 % (42-78); TOTAL CELLS COUNTED % (AUTO) 100 %; WHITE BLOOD COUNT 7.3 10^3/uL (4.0-10.5)
[2019-08-29 10:58] LABS: APPEARANCE,URINE CLEAR; BILIRUBIN,URINE NEGATIVE (NEGATIVE); COLOR,URINE YELLOW; GLUCOSE, URINE NEGATIVE (NEGATIVE); KETONES,URINE NEGATIVE (NEGATIVE); LEUKOCYTE ESTERASE,URINE SMALL (NEGATIVE); NITRITE,URINE NEGATIVE (NEGATIVE); PROTEIN,URINE NEGATIVE (NEGATIVE); URINE SPECIFIC GRAVITY 1.011; UROBILINOGEN,URINE NEGATIVE mg/dL (<2.0)
[2019-08-29 11:03] LABS: ANION GAP 9 (5-19); BLOOD UREA NITROGEN 18 mg/dL (7-20); CALCIUM 8.8 mg/dL (8.4-10.2); CARBON DIOXIDE 26 mmol/L (22-30); CHLORIDE 96 mmol/L (98-107); GLUCOSE 96 mg/dL (75-110); POTASSIUM 4.6 mmol/L (3.6-5.0)
[2019-08-29] MEDS ORDERED: NORMAL SALINE 1000 ML 1,000 ML IV ONE (11:26)
[2019-08-29] MEDS ORDERED: CEFEPIME 1 GM/D5W RTU 1 GM/50 ML RTUPB IV ONE (12:27)
--- NOTE | 2019-08-29 13:37 | EKG REPORT ---
SEVERITY:- NORMAL ECG - SINUS RHYTHM : Confirmed by: Misha Mejia MD 29-Aug-2019 13:36:50
[2019-08-29] MEDS ORDERED: ONDANSETRON HCL INJ/PF 4 MG/2 ML SDV IV PRN (14:23)
[2019-08-29] MEDS ORDERED: DEXTROSE 50%-WATER 25 GM/50 ML DISP.SYRIN IV PRN ×2 (14:49)
[2019-08-29] MEDS ORDERED: DEXTROSE 40% GEL 15 GM TUBE PO PRN ×2 (14:49)
[2019-08-29] MEDS ORDERED: GLUCAGON,HUMAN RECOMB 1 MG INJ IM PRN (14:49)
--- NOTE | 2019-08-29 14:51 | PDOC H&P ---
History of Present Illness Admission Date/PCP: 08/29/19 13:03 SILAS BRENNAN MD Patient complains of: Fall, weakness History of Present Illness: CESAR ARCINIEGA is a 74 year old male with a history of atrial fibrillation, hypertension, type 2 diabetes mellitus, and recent treatment of urinary tract infection who presents to the hospital following 2 falls over the weekend. Patient had initial fall on Thursday night while he was walking up the steps. Patient and his deny any loss of consciousness at the time or preceding lightheadedness or dizziness. States that he fell because his legs were very weak and gave out. See him had a similar episode yesterday and decided to present to the hospital. Patient does have weakness in both legs wh ich is chronic but with mild worsening. Denies any neurological focal defects. In the ER, CT head and abdomen and pelvis were negative for any traumatic injuries. However patient was referred to hospitalist service for admission after noted same soft blood pressures in the 90 systolic and 50s diastolic and possible UTI. Of note patient just received treatment for urinary tract infection recently and was discharged 2 days ago with negative urine culture at that time. Patient currently has no complaints. Patient's does report that patient has a history of Parkinson's disease gets treated at the [facility]. Denies any dysuria and endorses improvement in polyuria. Past Medical History Cardiac Medical History: Reports: Atrial Fibrillation, Hyperlipidema, Hypertension - medicated Denies: Coronary Artery Disease, Myocardial Infarction Pulmonary Medical History: Reports: Pneumonia Denies: Asthma Neurological Medical History: Denies: Seizures Endocrine Medical History: Reports: Diabetes Mellitus Type 2, Hypothyroidism Malignancy Medical History: Reports: Skin Cancer GI Medical History: Denies: Hepatitis, Hiatal Hernia Musculoskeltal Medical History: Reports: Arthritis Psychiatric Medical History: Reports: Bipolar Disorder, Depression - PTSD, Post Traumatic Stress Disorder Hematology: Reports: Anemia - medicated Denies: Sickle Cell Disease Past Surgical History Past Surgical History: Reports: Orthopedic Surgery - cervical & lumbar laminectomies orif L dami franc Denies: Pacemaker Social History Information Source: Patient, Relative Lives with: Spouse/Significant other Smoking Status: Unknown if Ever Smoked Frequency of Alcohol Use: None Hx Recreational Drug Use: No Hx Prescription Drug Abuse: No - Advance Directive Resuscitation Status: Full Code Family History Family History: Reviewed & Not Pertinent, Arthritis, CAD, CVA, Hyperlipidemia, Hypertension, Malignancy. denies: DM, Thyroid Disfunction Parental Family History Reviewed: Yes Children Family History Reviewed: NA Sibling(s) Family History Reviewed.: NA Medication/Allergy Allergies/Adverse Reactions: acetaminophen [From Tylenol] Adverse Reaction (Verified 08/29/19 10:02) steroids Adverse Reaction (Intermediate, Uncoded 08/29/19 10:02) elevated bp Review of Systems Constitutional: ABSENT: fatigue, fever(s) Eyes: ABSENT: visual disturbances Nose, Mouth, and Throat: ABSENT: headache(s) Cardiovascular: ABSENT: chest pain, palpitations Respiratory: ABSENT: dyspnea Gastrointestinal: ABSENT: abdominal pain, nausea, vomiting Integumentary: ABSENT: diaphoresis Neurological: PRESENT: frequent falls, weakness. ABSENT: confusion, dizziness Psychiatric: ABSENT: hallucinations Endocrine: PRESENT: polyuria - Improved with treatment of recent UTI Physical Exam Vital Signs: Temp Pulse Resp BP Pulse Ox 97.7 F 66 16 93/54 L 96 08/29/19 10:00 08/29/19 10:00 08/29/19 10:00 08/29/19 10:00 08/29/19 10:00 Intake & Output 08/28/19 08/29/19 08/30/19 06:59 06:59 06:59 Intake Total 1000 Balance 1000 Weight 97.2 kg General appearance: PRESENT: no acute distress, cooperative Head exam: PRESENT: normocephalic Neck exam: ABSENT: JVD Respiratory exam: PRESENT: clear to auscultation sonia, unlabored. ABSENT: tachypnea, wheezes Cardiovascular exam: PRESENT: RRR, +S1, +S2. ABSENT: tachycardia GI/Abdominal exam: PRESENT: soft. ABSENT: rebound, rigid, tenderness Extremities exam: ABSENT: calf tenderness Musculoskeletal exam: ABSENT: tenderness Neurological exam: PRESENT: alert, awake, oriented to person, oriented to place, oriented to time. ABSENT: aphasic Psychiatric exam: ABSENT: agitated, anxious Focused psych exam: ABSENT: pressured speech Skin exam: ABSENT: jaundice Results Laboratory Results: 08/29/19 10:34 08/29/19 10:34 08/29/19 08/29/19 08/29/19 10:34 10:34 10:42 WBC 7.3 RBC 3.73 L Hgb 11.8 L Hct 33.0 L MCV 88 MCH 31.6 MCHC 35.8 RDW 13.9 Plt Count 323 Seg Neutrophils % 66.3 Sodium 130.5 L Potassium 4.6 Chloride 96 L Carbon Dioxide 26 Anion Gap 9 BUN 18 Creatinine 1.02 Est GFR ( Amer) > 60 Glucose 96 Calcium 8.8 Urine Color YELLOW Urine Appearance CLEAR Urine pH 6.0 Ur Specific [place] 1.011 Urine Protein NEGATIVE Urine Glucose (UA) NEGATIVE Urine Ketones NEGATIVE Urine Blood MODERATE H Urine Nitrite NEGATIVE Ur Leukocyte Esterase SMALL H Urine WBC (Auto) 10 Urine RBC (Auto) 48 08/29/19 10:34 Troponin I < 0.012 Impressions: Abdomen/Pelvis CT 08/29/19 09:59 IMPRESSION: 1. No acute intra-abdominal abnormality. 2. Colonic diverticulosis without diverticulitis. 3. 7 mm nonobstructive caliceal calculus in the lower pole of the left kidney. 4. Patulous trabeculated appearance of the urinary bladder. Head CT 08/29/19 09:59 IMPRESSION: No acute intracranial abnormality. EVIDENCE OF ACUTE STROKE: NO. Chest X-Ray 08/29/19 10:04 IMPRESSION: No acute cardiopulmonary process. Assessment and Plan - Diagnosis (1) Hypotension Qualifiers: Hypotension type: unspecified hypotension type Qualified Code(s): I95.9 - Hypotension, unspecified Is this a current diagnosis for this admission?: Yes Plan: Mildly hypotensive with systolic in the 90s and diastolic in 50s. Noted to have had similar soft BPs towards the end of prior admission. We will admit for observation and monitor. Will give some IV fluids as well. Hold antihypertensives for now. Will likely need to cut down on his antihypertensive regimen prior to discharge. Patient did take 1 of his blood pressure medications this morning. Currently does not appear septic. (2) Frequent falls Is this a current diagnosis for this admission?: Yes Plan: Head CT on abdominal pelvis CT negative for traumatic injury Patient does have multiple factors that could be contributing to patient's ambulatory dysfunction including patient's orthopedic surgeries and arthritis involving knees and back as well as Parkinson's disease which patient's reports that he has been diagnosed with. Physical & Occupational Therapy. Patient might likely benefit from home health. (3) UTI (urinary tract infection) Qualifiers: Urinary tract infection type: acute cystitis Hematuria presence: with hematuria Qualified Code(s): N30.01 - Acute cystitis with hematuria Is this a current diagnosis for this admission?: Yes Plan: Patient had recent urinary tract infection and was discharged with Keflex. Of note though he is urine culture on July 18, 2019 showed Pseudomonas, patient did have a repeat urine culture on the day he was discharged 08/27/2019 which was negative. Urinalysis is only weakly positive at this time. I will continue on cefepime started in ER for now but will discontinue if urine culture comes back negative. I do however suspect that patient does have a resolving/resolved treated UTI. (4) Diabetes mellitus Qualifiers: Diabetes mellitus type: type 2 Diabetes mellitus penitentiary insulin use: unspecified penitentiary insulin use status Diabetes mellitus complication status: without complication Qualified Code(s): E11.9 - Type 2 diabetes mellitus without complications Is this a current diagnosis for this admission?: Yes Plan: Continue home regimen of metformin. Accu-Cheks and sliding scale. Diabetic diet. (5) Paroxysmal chronic atrial fib Is this a current diagnosis for this admission?: Yes Plan: Currently sinus rhythm. Continue Toprol-XL and Xarelto. - Time Time Spent with patient: 35 or more minutes
[2019-08-29] MEDS: INSULIN LISPRO 100 UNIT/ML 3 ML VIAL SUBCUT SCH ×2 (16:45→22:14)
[2019-08-29] MEDS ORDERED: RIVAROXABAN 10 MG TABLET PO SCH (19:00)
[2019-08-29] MEDS ORDERED: BUPROPION HCL 100 MG TABLET PO SCH (19:00)
[2019-08-29] MEDS ORDERED: DHA PO SCH (22:00)
[2019-08-29] MEDS ORDERED: [UNRECOGNIZED DRUG - OTHER] PO SCH (22:00)
[2019-08-29] MEDS ORDERED: FISH OIL PO SCH (22:00)
[2019-08-29] MEDS ORDERED: FLAX PO SCH (22:00)
[2019-08-29] MEDS ORDERED: EPA PO SCH (22:00)
[2019-08-29] MEDS: CEFEPIME 1 GM/D5W RTU 1 GM/50 ML RTUPB IV SCH (22:27)
[2019-08-29] MEDS: BENZTROPINE MESYLATE 1 MG TABLET PO SCH (22:28)
[2019-08-29] MEDS: LUBIPROSTONE 24 MCG CAPSULE PO SCH (22:28)
[2019-08-29] MEDS: METOPROLOL SUCCINATE 25 MG TAB.SR.24H PO SCH (22:28)
[2019-08-30 04:40] LABS: HEMATOCRIT 32.6 % (37.9-51.0); HEMOGLOBIN 11.5 g/dL (13.5-17.0); MEAN CORPUSCULAR HEMOGLOBIN 31.2 pg (27.0-33.4); MEAN CORPUSCULAR HGB CONC 35.2 g/dL (32.0-36.0); MEAN CORPUSCULAR VOLUME 89 fl (80-97); PLATELET COUNT 326 10^3/uL (150-450); RED BLOOD COUNT 3.67 10^6/uL (4.35-5.55); RED CELL DISTRIBUTION WIDTH 13.9 % (11.5-14.0); WHITE BLOOD COUNT 7.8 10^3/uL (4.0-10.5)
[2019-08-30 04:58] LABS: BLOOD UREA NITROGEN 16 mg/dL (7-20); CALCIUM 8.9 mg/dL (8.4-10.2); CARBON DIOXIDE 28 mmol/L (22-30); CHLORIDE 100 mmol/L (98-107); GLUCOSE 106 mg/dL (75-110); POTASSIUM 4.9 mmol/L (3.6-5.0)
[2019-08-30 05:02] LABS: ANION GAP 5 (5-19)
[2019-08-30] MEDS ORDERED: LEVOTHYROXINE SODIUM 0.05 MG TABLET PO SCH (06:00)
[2019-08-30] MEDS: INSULIN LISPRO 100 UNIT/ML 3 ML VIAL SUBCUT SCH ×2 (08:44→12:36)
[2019-08-30] MEDS ORDERED: CITALOPRAM HYDROBROMIDE 20 MG TABLET PO SCH (10:00)
[2019-08-30] MEDS ORDERED: METFORMIN HCL 500 MG TABLET PO SCH (10:00)
[2019-08-30] MEDS ORDERED: FOLIC ACID 1 MG TABLET PO SCH (10:00)
[2019-08-30] MEDS ORDERED: BUPROPION HCL 75 MG TABLET PO SCH (10:00)
[2019-08-30] MEDS ORDERED: RISPERIDONE 1 MG TABLET PO SCH (10:00)
[2019-08-30] MEDS ORDERED: ASPIRIN 81 MG TABLET, ENT COATED PO SCH (10:00)
[2019-08-30] MEDS ORDERED: ENOXAPARIN SODIUM INJ 40 MG/0.4 ML DISP.SYRIN SUBCUT SCH (10:00)
[2019-08-30] MEDS: BENZTROPINE MESYLATE 1 MG TABLET PO SCH (10:27)
[2019-08-30] MEDS: LUBIPROSTONE 24 MCG CAPSULE PO SCH (10:27)
[2019-08-30] MEDS: METOPROLOL SUCCINATE 25 MG TAB.SR.24H PO SCH (10:27)
[2019-08-30] MEDS: CEFEPIME 1 GM/D5W RTU 1 GM/50 ML RTUPB IV SCH (10:28)
--- NOTE | 2019-08-30 13:28 | PDOC DISCHARGE SUMMARY ---
Impression - Admit/DC Date/PCP Admission Date/Primary Care Provider: 08/29/19 13:03 SILAS BRENNAN MD Discharge Date: 08/30/19 - Discharge Diagnosis (1) Hypotension Is this a current diagnosis for this admission?: Yes (2) Frequent falls Is this a current diagnosis for this admission?: Yes (3) UTI (urinary tract infection) Is this a current diagnosis for this admission?: Yes (4) Diabetes mellitus Is this a current diagnosis for this admission?: Yes (5) Paroxysmal chronic atrial fib Is this a current diagnosis for this admission?: Yes - Additional Information Resuscitation Status: Full Code Discharge Diet: As Tolerated Discharge Activity: Activity As Tolerated Referrals: SILAS BRENNAN MD [Primary Care Provider] - 09/06/19 2:15 pm Prescriptions: Levofloxacin [Levaquin 500 mg Tablet] 500 mg PO DAILY 3 Days #3 tablet Home Medications: Amlodipine Besylate [Norvasc 5 mg Tablet] 5 mg PO DAILY 08/29/19 Aspirin [Adult Low Dose Aspirin EC] 81 mg PO DAILY 08/29/19 Benztropine Mesylate [Cogentin 1 mg Tablet] 1 tab PO Q12 08/29/19 Bupropion HCl [Bupropion HCl Sr] 100 mg PO QPM 08/29/19 Bupropion HCl [Bupropion HCl Sr] 150 mg PO QAM 08/29/19 Citalopram Hydrobromide [Citalopram HBr] 40 mg PO QAM 08/29/19 Folic Acid 1 mg PO DAILY 08/29/19 Levothyroxine Sodium 50 mcg PO QAM@0600 08/29/19 Lubiprostone [Amitiza 24 Mcg Capsule] 24 mcg PO Q12 08/29/19 Metformin HCl 500 mg PO DAILY 08/29/19 Metoprolol Succinate [Toprol Xl 25 mg Tab.sr] 25 mg PO Q12 08/29/19 Omeg3/Epa/Dha/Fish Oil/Flax/E [Thera Tears Nutrition Capsule] 1 each PO Q12 08/29/19 Pravastatin Sodium [Pravachol] 20 mg PO QHS 08/29/19 Risperidone [Risperdal 1 mg Tablet] 1 mg PO DAILY 08/29/19 Rivaroxaban [Xarelto] 20 mg PO QPM 08/29/19 Levofloxacin [Levaquin 500 mg Tablet] 500 mg PO DAILY 3 Days #3 tablet 08/30/19 History of Present Illiness History of Present Illness: CESAR ARCINIEGA is a 74 year old male with a history of atrial fibrillation, hypertension, type 2 diabetes mellitus, and recent treatment of urinary tract infection who presents to the hospital following 2 falls over the weekend. Patient had initial fall on Thursday night while he was walking up the steps. Patient and his deny any loss of consciousness at the time or preceding lightheadedness or dizziness. States that he fell because his legs were very weak and gave out. See him had a similar episode yesterday and decided to present to the hospital. Patient does have weakness in both legs which is chronic but with mild worsening. Denies any neurological focal defects. In the ER, CT head and abdomen and pelvis were negative for any traumatic injuries. However patient was referred to hospitalist service for admission after noted same soft blood pressures in the 90 systolic and 50s diastolic and possible UTI. Of note patient just received treatment for urinary tract infection recently and was discharged 2 days ago with negative urine culture at that time. Patient currently has no complaints. Patient's does report that patient has a history of Parkinson's disease gets treated at the [facility]. Denies any dysuria and endorses improvement in polyuria. Hospital Course Hospital Course: Patient presented for evaluation after having 2 falls. In the emergency department trauma evaluation was performed with CT head and CT abdomen pelvis which were both negative for any acute traumatic injuries. Urinalysis was performed which did show some positive leukocyte esterase. Of note patient had been recently treated for urinary tract infection and was on Keflex at home. Patient was admitted for observation because patient's blood pressures on presentation was soft in the 90s over 50s. Given this hypotension patient did receive only 1 L of fluids while in the emergency department. Patient did not receive any IV fluids subsequently and was monitored off fluids. Patient's blood pressure normalized later yesterday and has remained normal off any IV fluids. Today patient feels very well and eager to go home. Patient has been cleared by physical therapy who is recommending continued physical therapy a few times a week upon discharge. Patient has been set up for outpatient physical therapy. I have changed patient's antibiotics from Keflex to Levaquin for 3 more days after discussing with microbiology who says that preliminary urine culture showing gram-negative rods. Patient did receive cefepime while inpatient. All patient's vitals are stable and patient is stable for discharge. Physical Exam Vital Signs: Temp Pulse Resp BP Pulse Ox 98.5 F 85 16 121/60 97 08/30/19 03:31 08/30/19 07:00 08/30/19 03:31 08/30/19 03:31 08/30/19 03:31 Intake & Output 08/29/19 08/30/19 08/31/19 06:59 06:59 06:59 Intake Total 1480 Balance 1480 Weight 95.6 kg General appearance: PRESENT: no acute distress, cooperative Neck exam: ABSENT: JVD Respiratory exam: PRESENT: clear to auscultation sonia GI/Abdominal exam: PRESENT: soft. ABSENT: tenderness Neurological exam: PRESENT: alert, awake, oriented to person, oriented to place, oriented to time Results Laboratory Results: WBC 7.8 10^3/uL (4.0-10.5) 08/30/19 04:07 RBC 3.67 10^6/uL (4.35-5.55) L 08/30/19 04:07 Hgb 11.5 g/dL (13.5-17.0) L 08/30/19 04:07 Hct 32.6 % (37.9-51.0) L 08/30/19 04:07 MCV 89 fl (80-97) 08/30/19 04:07 MCH 31.2 pg (27.0-33.4) 08/30/19 04:07 MCHC 35.2 g/dL (32.0-36.0) 08/30/19 04:07 RDW 13.9 % (11.5-14.0) 08/30/19 04:07 Plt Count 326 10^3/uL (150-450) 08/30/19 04:07 Lymph % (Auto) 21.8 % (13-45) 08/29/19 10:34 [place] % (Auto) 8.9 % (3-13) 08/29/19 10:34 Eos % (Auto) 2.1 % (0-6) 08/29/19 10:34 Baso % (Auto) 0.9 % (0-2) 08/29/19 10:34 Absolute Neuts (auto) 4.9 10^3/uL (1.7-8.2) 08/29/19 10:34 Absolute Lymphs (auto) 1.6 10^3/uL (0.5-4.7) 08/29/19 10:34 Absolute Monos (auto) 0.7 10^3/uL (0.1-1.4) 08/29/19 10:34 Absolute Eos (auto) 0.2 10^3/uL (0.0-0.6) 08/29/19 10:34 Absolute Basos (auto) 0.1 10^3/uL (0.0-0.2) 08/29/19 10:34 Seg Neutrophils % 66.3 % (42-78) 08/29/19 10:34 Sodium 132.2 mmol/L (137-145) L 08/30/19 04:07 Potassium 4.9 mmol/L (3.6-5.0) 08/30/19 04:07 Chloride 100 mmol/L (98-107) 08/30/19 04:07 Carbon Dioxide 28 mmol/L (22-30) 08/30/19 04:07 Anion Gap 5 (5-19) 08/30/19 04:07 BUN 16 mg/dL (7-20) 08/30/19 04:07 Creatinine 0.99 mg/dL (0.52-1.25) 08/30/19 04:07 Est GFR ( Amer) > 60 (>60) 08/30/19 04:07 Est GFR (MDRD) Non-Af > 60 (>60) 08/30/19 04:07 Glucose 106 mg/dL (75-110) 08/30/19 04:07 POC Glucose 98 mg/dL (70-110) 08/30/19 12:24 Calcium 8.9 mg/dL (8.4-10.2) 08/30/19 04:07 Troponin I < 0.012 ng/mL 08/29/19 10:34 Urine Color YELLOW 08/29/19 10:42 Urine Appearance CLEAR 08/29/19 10:42 Urine pH 6.0 (5.0-9.0) 08/29/19 10:42 Ur Specific [place] 1.011 08/29/19 10:42 Urine Protein NEGATIVE mg/dL (NEGATIVE) 08/29/19 10:42 Urine Glucose (UA) NEGATIVE mg/dL (NEGATIVE) 08/29/19 10:42 Urine Ketones NEGATIVE mg/dL (NEGATIVE) 08/29/19 10:42 Urine Blood MODERATE (NEGATIVE) H 08/29/19 10:42 Urine Nitrite NEGATIVE (NEGATIVE) 08/29/19 10:42 Urine Bilirubin NEGATIVE (NEGATIVE) 08/29/19 10:42 Urine Urobilinogen NEGATIVE mg/dL (<2.0) 08/29/19 10:42 Ur Leukocyte Esterase SMALL (NEGATIVE) H 08/29/19 10:42 Urine WBC (Auto) 10 /HPF 08/29/19 10:42 Urine RBC (Auto) 48 /HPF 08/29/19 10:42 U Hyaline Cast (Auto) 1 /LPF 08/29/19 10:42 Squamous Epi Cells Auto 1 /HPF 08/29/19 10:42 Urine Mucus (Auto) RARE /LPF 08/29/19 10:42 Urine Ascorbic Acid NEGATIVE (NEGATIVE) 08/29/19 10:42 08/29/19 10:34 Troponin I < 0.012 Impressions: Abdomen/Pelvis CT 08/29/19 09:59 IMPRESSION: 1. No acute intra-abdominal abnormality. 2. Colonic diverticulosis without diverticulitis. 3. 7 mm nonobstructive caliceal calculus in the lower pole of the left kidney. 4. Patulous trabeculated appearance of the urinary bladder. Head CT 08/29/19 09:59 IMPRESSION: No acute intracranial abnormality. EVIDENCE OF ACUTE STROKE: NO. Chest X-Ray 08/29/19 10:04 IMPRESSION: No acute cardiopulmonary process. Plan Time Spent: Less than 30 Minutes Stroke Is this a Stroke Patient?: No Acute Heart Failure - Is this a Heart Failure Patient?: No
[2019-08-30 13:59] VITALS: BP 139/64
== END 2019-08-30 14:37 | disposition home or self-care (01) ==
LOC: ER 09:20 → EH 13:03 → 5 21:01
PROVIDERS: ADMIT Internal Medicine; ATTEND Internal Medicine
DX: I95.9 Hypotension, unspecified (principal); R29.6 Repeated falls; N30.01 Acute cystitis with hematuria; G20 Parkinson's disease; E11.9 Type 2 diabetes mellitus without complications; I48.0 Paroxysmal atrial fibrillation; M54.9 Dorsalgia, unspecified; R07.81 Pleurodynia; W10.8XXA Fall (on) (from) other stairs and steps, initial encounter; Y92.008 Other place in unspecified non-institutional (private) residence as the place of occurrence of the external cause; I10 Essential (primary) hypertension; N20.0 Calculus of kidney; K57.30 Diverticulosis of large intestine without perforation or abscess without bleeding; M19.90 Unspecified osteoarthritis, unspecified site; Z79.82 Long term (current) use of aspirin; Z79.899 Other long term (current) drug therapy; Z79.01 Long term (current) use of anticoagulants; Z87.440 Personal history of urinary (tract) infections; Z82.3 Family history of stroke; Z82.49 Family history of ischemic heart disease and other diseases of the circulatory system; Z96.698 Presence of other orthopedic joint implants
CPT/HCPCS: 93005; 99285; 96361; 96365; 36415 ×2; 87086; 82962 ×2; 85025; 85027; 87088; 80048 ×2; 81001; 84484; 87186; 71046; 70450; 74176; 93010; 97116; 97163; J3490 ×2; J7030; J0692 ×2; G0378

== ENCOUNTER 2019-10-06 13:57 | Observation (INO) | payer MEDICARE, BC ==
--- NOTE | 2019-10-06 14:07 | ER Document Report ---
ED Medical Screen (RME) - General Chief Complaint: Urinary Problem Stated Complaint: URINARY PROBLEMS Time Seen by Provider: 10/06/19 14:04 Primary Care Provider: SILAS BRENNAN MD [Primary Care Provider] - Follow up as needed Mode of Arrival: Ambulatory Information source: Patient Notes: 74-year-old male presented to ED for urinary tract infection. He states his doctor sent him to the emergency room to get some antibiotics for his urinary tract infection. He states he was told he had to have IV antibiotics. He is alert oriented respirations regular nonlabored. He denies any fevers. He states he has not been around anybody except his health until he went to the doctor's office. I have greeted and performed a rapid initial assessment of this patient. A comprehensive ED assessment and evaluation of the patient, analysis of test results and completion of medical decision making process will be conducted by an additional ED providers. TRAVEL OUTSIDE OF THE [place] IN LAST 30 DAYS: No - Related Data Allergies/Adverse Reactions: acetaminophen [From Tylenol] Adverse Reaction (Verified 08/29/19 10:02) steroids Adverse Reaction (Intermediate, Uncoded 08/29/19 10:02) elevated bp Past Medical History - Past Medical History Cardiac Medical History: Reports: Hx Atrial Fibrillation, Hx Hypercholesterolemia, Hx Hypertension - medicated Denies: Hx Coronary Artery Disease, Hx Heart Attack Pulmonary Medical History: Reports: Hx Pneumonia Denies: Hx Asthma Neurological Medical History: Denies: Hx Seizures Endocrine Medical History: Reports: Hx Diabetes Mellitus Type 2, Hx Hypothyroidism Renal/ Medical History: Reports: Hx Benign Prostatic Hyperplasia, Hx Kidney Stones. Denies: Hx Peritoneal Dialysis Malignancy Medical History: Reports Hx Skin Cancer GI Medical History: Reports: Hx Irritable Bowel, Hx Colonoscopy. Denies: Hx Hepatitis, Hx Hiatal Hernia, Hx Ulcer Musculoskeltal Medical History: Reports Hx Arthritis, Reports Hx Musculoskeletal Deformity, Reports Hx Musculoskeletal Trauma Psychiatric Medical History: Reports: Hx Anxiety, Hx Bipolar Disorder, Hx Depression - PTSD, Hx Post Traumatic Stress Disorder Traumatic Medical History: Reports: Hx Fractures - 3 weeks ago tripped vidant orif L lisfranc still nonweight bearing Infectious Medical History: Denies: Hx Hepatitis Past Surgical History: Reports: Hx Orthopedic Surgery - cervical & lumbar laminectomies orif L lis franc. Denies: Hx Open Heart Surgery, Hx Pacemaker - Immunizations Immunizations up to date: Yes Hx Diphtheria, Pertussis, Tetanus Vaccination: Yes - january 2015 Physical Exam - Vital signs Vitals: Temp Pulse Resp BP Pulse Ox 97.8 F 87 18 142/63 H 98 10/06/19 14:01 10/06/19 14:01 10/06/19 14:01 10/06/19 14:01 10/06/19 14:01 Course - Vital Signs Vital signs: Temp Pulse Resp BP Pulse Ox 97.8 F 87 18 142/63 H 98 10/06/19 14:01 10/06/19 14:01 10/06/19 14:01 10/06/19 14:01 10/06/19 14:01 Doctor's Discharge - Discharge Referrals: SILAS BRENNAN MD [Primary Care Provider] - Follow up as needed
[2019-10-06 14:42] LABS: APPEARANCE,URINE CLOUDY; BILIRUBIN,URINE NEGATIVE (NEGATIVE); COLOR,URINE YELLOW; GLUCOSE, URINE NEGATIVE (NEGATIVE); KETONES,URINE NEGATIVE (NEGATIVE); PROTEIN,URINE NEGATIVE (NEGATIVE); URINE SPECIFIC GRAVITY 1.011; UROBILINOGEN,URINE NEGATIVE mg/dL (<2.0)
--- NOTE | 2019-10-06 15:09 | ER Document Report ---
ED General - General Chief Complaint: Urinary Problem Stated Complaint: URINARY PROBLEMS Time Seen by Provider: 10/06/19 14:04 Mode of Arrival: Ambulatory Information source: Patient TRAVEL OUTSIDE OF THE [place] IN LAST 30 DAYS: No - HPI Onset: Other - over the last 4 years Onset/Duration: Gradual Quality of pain: Other - burning with urination Severity: Mild Pain Level: 1 Associated symptoms: None Exacerbated by: Other - urinating Relieved by: Denies Similar symptoms previously: Yes - with prior UTIs Recently seen / treated by doctor: No Notes: 74 year old male with a history of DM, HTN, HLD, AFib, Hypothyroidism, Anxiety here for burning with urination, urinary hesitancy, urinary urgency for the last 4 days. The patient had an outpatient urine culture on October 03 which grew out Pseudomonas resistant to quinolones. The patient's PCP therefore sent the patient to the ER to be admitted. - Related Data Allergies/Adverse Reactions: acetaminophen [From Tylenol] Adverse Reaction (Verified 08/29/19 10:02) steroids Adverse Reaction (Intermediate, Uncoded 08/29/19 10:02) elevated bp Past Medical History - General Information source: Patient - Social History Smoking Status: Former Smoker Frequency of alcohol use: None Drug Abuse: None Lives with: Spouse/Significant other Family History: Reviewed & Not Pertinent, Arthritis, CAD, CVA, Hyperlipidemia, Hypertension, Malignancy. denies: DM, Thyroid Disfunction Patient has suicidal ideation: No Patient has homicidal ideation: No - Past Medical History Cardiac Medical History: Reports: Hx Atrial Fibrillation, Hx Hypercholesterolemia, Hx Hypertension - medicated Denies: Hx Coronary Artery Disease, Hx Heart Attack Pulmonary Medical History: Reports: Hx Pneumonia Denies: Hx Asthma Neurological Medical History: Denies: Hx Seizures Endocrine Medical History: Reports: Hx Diabetes Mellitus Type 2, Hx Hypothyroidism Renal/ Medical History: Reports: Hx Benign Prostatic Hyperplasia, Hx Kidney Stones. Denies: Hx Peritoneal Dialysis Malignancy Medical History: Reports Hx Skin Cancer GI Medical History: Reports: Hx Irritable Bowel, Hx Colonoscopy. Denies: Hx Hepatitis, Hx Hiatal Hernia, Hx Ulcer Musculoskeletal Medical History: Reports Hx Arthritis, Reports Hx Musculoskeletal Deformity, Reports Hx Musculoskeletal Trauma Psychiatric Medical History: Reports: Hx Anxiety, Hx Bipolar Disorder, Hx Depression - PTSD, Hx Post Traumatic Stress Disorder Traumatic Medical History: Reports: Hx Fractures - 3 weeks ago tripped vidant orif L lisfranc still nonweight bearing Infectious Medical History: Denies: Hx Hepatitis Past Surgical History: Reports: Hx Orthopedic Surgery - cervical & lumbar laminectomies orif L lis franc. Denies: Hx Open Heart Surgery, Hx Pacemaker - Immunizations Immunizations up to date: Yes Hx Diphtheria, Pertussis, Tetanus Vaccination: Yes - january 2015 Hx Pneumococcal Vaccination: 07/20/13 Review of Systems - Review of Systems Constitutional: No symptoms reported EENT: No symptoms reported Cardiovascular: No symptoms reported Respiratory: No symptoms reported Gastrointestinal: No symptoms reported Genitourinary: No symptoms reported, Burning, Dysuria, Frequency, Urgency Male Genitourinary: No symptoms reported Musculoskeletal: No symptoms reported Skin: No symptoms reported Hematologic/Lymphatic: No symptoms reported Neurological/Psychological: No symptoms reported -: Yes All other systems reviewed and negative Physical Exam - Vital signs Vitals: Temp Pulse Resp BP Pulse Ox 97.8 F 87 18 142/63 H 98 10/06/19 14:01 10/06/19 14:10/06/19 14:10/06/19 14:10/06/19 14:01 - Notes Notes: GENERAL: Well-appearing, well-nourished and in no acute distress. HEAD: Atraumatic, normocephalic. EYES: Pupils equal round and reactive to light, extraocular movements intact, sclera anicteric, conjunctiva are normal. ENT: Nares patent, oropharynx clear without exudates. Moist mucous membranes. NECK: Normal range of motion, supple without lymphadenopathy or JVD. LUNGS: Breath sounds clear to auscultation bilaterally and equal. No wheezes rales or rhonchi. HEART: Regular rate and rhythm without murmurs, rubs or gallops. ABDOMEN: Soft, nontender, normoactive bowel sounds. No guarding, no rebound. No masses appreciated. EXTREMITIES: Normal range of motion, no pitting or edema. No clubbing or cyanosis. NEUROLOGICAL: Cranial nerves II through XII grossly intact. Normal speech, normal gait. PSYCH: Normal mood, normal affect. SKIN: Warm, Dry, normal turgor, no rashes or lesions noted. Course - Re-evaluation Re-evalutation: 10/06/19 16:56 The patient has a resistant UTI (pseudomonas resistant to quinolones). I spoke with ID and the ID doctor conservation policy analyst would like the patient admitted for blood cultures and PIC line placement. Patient is not septic and appears well. I attempted to set up outpatient treatment options for this patient given the pandemic of COVID19 but there does not seem to be a good outpatient option. - Vital Signs Vital signs: Temp Pulse Resp BP Pulse Ox 97.8 F 87 18 142/63 H 98 10/06/19 14:01 10/06/19 14:01 10/06/19 14:01 10/06/19 14:01 10/06/19 14:01 - Laboratory Result Diagrams: 10/06/19 16:08 10/06/19 16:08 Laboratory results interpreted by me: 10/06/19 14:16 Urine Blood SMALL H Leukocyte Esterase Rfl LARGE H Discharge - Discharge Clinical Impression: UTI (urinary tract infection) Qualifiers: Urinary tract infection type: site unspecified Hematuria presence: without hematuria Qualified Code(s): N39.0 - Urinary tract infection, site not specified Condition: Stable Disposition: ADMITTED INPATIENT Admitting Provider: Loreta (Hospitalist) Unit Admitted: Medical Floor
[2019-10-06] MEDS ORDERED: CEFEPIME 2 GM/D5W RTU 2 GM/50 ML RTUPB IV ONE (15:45)
[2019-10-06 16:34] LABS: ABSOLUTE BASOPHILS # (AUTO) 0.1 10^3/uL (0.0-0.2); ABSOLUTE EOSINOPHILS # (AUTO) 0.1 10^3/uL (0.0-0.6); ABSOLUTE LYMPHOCYTES (AUTO) 1.6 10^3/uL (0.5-4.7); ABSOLUTE MONOCYTES (AUTO) 0.7 10^3/uL (0.1-1.4); ABSOLUTE NEUT (AUTO) 8.1 10^3/uL (1.7-8.2); BASOPHILS % (AUTO) 1.1 % (0-2); EOSINOPHILS % (AUTO) 1.2 % (0-6); HEMATOCRIT 32.5 % (37.9-51.0); HEMOGLOBIN 11.4 g/dL (13.5-17.0); MEAN CORPUSCULAR HEMOGLOBIN 31.2 pg (27.0-33.4); MEAN CORPUSCULAR HGB CONC 35.1 g/dL (32.0-36.0); MEAN CORPUSCULAR VOLUME 89 fl (80-97); MONOCYTES % (AUTO) 6.9 % (3-13); PLATELET COUNT 367 10^3/uL (150-450); RED BLOOD COUNT 3.65 10^6/uL (4.35-5.55); RED CELL DISTRIBUTION WIDTH 14.8 % (11.5-14.0); SEGMENTED NEUTROPHILS % (AUTO) 75.8 % (42-78); TOTAL CELLS COUNTED % (AUTO) 100 %; WHITE BLOOD COUNT 10.6 10^3/uL (4.0-10.5)
[2019-10-06 16:47] LABS: ANION GAP 12 (5-19); BLOOD UREA NITROGEN 17 mg/dL (7-20); CALCIUM 9.1 mg/dL (8.4-10.2); CARBON DIOXIDE 25 mmol/L (22-30); CHLORIDE 94 mmol/L (98-107); GLUCOSE 100 mg/dL (75-110); POTASSIUM 4.3 mmol/L (3.6-5.0)
[2019-10-06] MEDS ORDERED: MAGNESIUM HYDROXIDE SUSP 30 ML UDCUP PO PRN (16:48)
[2019-10-06] MEDS ORDERED: MAG HYDROX/AL HYDROX/SIMETH SUSP 30 ML UDCUP PO PRN (16:48)
[2019-10-06] MEDS ORDERED: IBUPROFEN 400 MG TABLET PO PRN ×2 (16:56→17:11)
--- NOTE | 2019-10-06 17:53 | PDOC H&P ---
History of Present Illness Admission Date/PCP: 10/06/19 15:57 SILAS BRENNAN MD Patient complains of: Patient was instructed to report to the emergency department for a positive urine culture. 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 The isolate has been resistant to quinolone therapy therefore requiring intravenous medications. He reports that he was noting dark urine. Several days ago they obtained a urine culture through his primary care provider's office. The culture results came back today and the patient was positive for pseudomonas aeruginosa again. He was admitted for a similar occurrence approximately 6 to 8 weeks ago. The patient denies fever, chills, nausea or vomiting. He denies lightheadedness or dizziness. He states that he has not been feeling poorly but does report occasional urinary frequency. He has noted dark clumps of material in his urine, possibly blood clots. His white blood cell count was minimally elevated at 10.6. Serum chemistries are pending. Blood cultures were obtained. Urine culture from 48 hours ago revealed the Pseudomonas. This urine culture differs from the August 29 urine culture and that this organism is sensitive to the aminoglycosides whereas the previous organism was not. Otherwise it has the same sensitivity pattern with resistance to quinolones and sensitive to the othe r medications tested. The patient will be admitted and given IV antibiotics. Because of the recurrence of this infection he may require a PICC line with longer term outpatient antibiotic therapy. Past Medical History Cardiac Medical History: Reports: Atrial Fibrillation, Hyperlipidema, Hypertension - medicated Denies: Coronary Artery Disease, Myocardial Infarction Pulmonary Medical History: Reports: Pneumonia Denies: Asthma Neurological Medical History: Denies: Seizures Endocrine Medical History: Reports: Diabetes Mellitus Type 2, Hypothyroidism Renal/ Medical History: Reports: Nephrolithiasis Malignancy Medical History: Reports: Skin Cancer GI Medical History: Reports: Other - Chronic constipation Denies: Hepatitis, Hiatal Hernia Musculoskeltal Medical History: Reports: Arthritis Psychiatric Medical History: Reports: Bipolar Disorder, Depression - PTSD, Post Traumatic Stress Disorder Hematology: Reports: Anemia - medicated Denies: Sickle Cell Disease Past Surgical History Past Surgical History: Reports: Orthopedic Surgery - cervical & lumbar laminectomies orif L lis franc Denies: Pacemaker Social History Information Source: Patient, [facility] Records Lives with: Spouse/Significant other Smoking Status: Former Smoker Electronic Cigarette use?: No Frequency of Alcohol Use: None Hx Recreational Drug Use: No Hx Prescription Drug Abuse: No - Advance Directive Resuscitation Status: Full Code Surrogate healthcare decision maker:: The patient's would be the designated decision maker Family History Family History: Arthritis, CAD, CVA, Hyperlipidemia, Hypertension, Malignancy. denies: DM, Thyroid Disfunction Parental Family History Reviewed: Yes Children Family History Reviewed: NA Sibling(s) Family History Reviewed.: Yes Medication/Allergy Home Medications: Amlodipine Besylate [Norvasc 5 mg Tablet] 5 mg PO DAILY 08/29/19 Aspirin [Adult Low Dose Aspirin EC] 81 mg PO DAILY 08/29/19 Benztropine Mesylate [Cogentin 1 mg Tablet] 1 tab PO Q12 08/29/19 Bupropion HCl [Bupropion HCl Sr] 100 mg PO QPM 08/29/19 Bupropion HCl [Bupropion HCl Sr] 150 mg PO QAM 08/29/19 Citalopram Hydrobromide [Citalopram HBr] 40 mg PO QAM 08/29/19 Folic Acid 1 mg PO DAILY 08/29/19 Levothyroxine Sodium 50 mcg PO QAM@0600 08/29/19 Lubiprostone [Amitiza 24 Mcg Capsule] 24 mcg PO Q12 08/29/19 Metformin HCl 500 mg PO DAILY 08/29/19 Metoprolol Succinate [Toprol Xl 25 mg Tab.sr] 25 mg PO Q12 08/29/19 Omeg3/Epa/Dha/Fish Oil/Flax/E [Thera Tears Nutrition Capsule] 1 each PO Q12 08/29/19 Pravastatin Sodium [Pravachol] 20 mg PO QHS 08/29/19 Risperidone [Risperdal 1 mg Tablet] 1 mg PO DAILY 08/29/19 Rivaroxaban [Xarelto] 20 mg PO QPM 08/29/19 Levofloxacin [Levaquin 500 mg Tablet] 500 mg PO DAILY 3 Days #3 tablet 08/30/19 Allergies/Adverse Reactions: acetaminophen [From Tylenol] Adverse Reaction (Verified 08/29/19 10:02) steroids Adverse Reaction (Intermediate, Uncoded 08/29/19 10:02) elevated bp Review of Systems Constitutional: ABSENT: anorexia, chills, fever(s), night sweats Eyes: ABSENT: visual disturbances Ears: ABSENT: hearing changes Nose, Mouth, and Throat: ABSENT: headache(s), sore throat Cardiovascular: ABSENT: chest pain, edema, palpitations Respiratory: ABSENT: cough, dyspnea, hemoptysis Gastrointestinal: PRESENT: constipation. ABSENT: abdominal pain, dysphagia, nausea, vomiting Genitourinary: PRESENT: other - Patient reports urine is dark with possible small clots. ABSENT: dysuria Musculoskeletal: ABSENT: deformity, joint swelling Integumentary: PRESENT: other - Darkly pigmented skin with occasional small crusty lesions. ABSENT: diaphoresis, erythema Neurological: PRESENT: frequent falls. ABSENT: abnormal gait, abnormal speech, confusion, memory loss, syncope Psychiatric: PRESENT: depression. ABSENT: anxiety Endocrine: PRESENT: polyuria - Occasionally. ABSENT: cold intolerance, heat intolerance, polydipsia Hematologic/Lymphatic: ABSENT: easy bleeding, easy bruising, lymphadenopathy Allergic/Immunologic: ABSENT: seasonal rhinorrhea Physical Exam Vital Signs: Temp Pulse Resp BP Pulse Ox 97.8 F 87 18 142/63 H 98 10/06/19 14:01 10/06/19 14:01 10/06/19 14:01 10/06/19 14:01 10/06/19 14:01 Intake & Output 10/05/19 10/06/19 10/07/19 06:59 06:59 06:59 Weight 95.254 kg General appearance: PRESENT: no acute distress, cooperative, well-developed Head exam: PRESENT: atraumatic, normocephalic Eye exam: PRESENT: conjunctiva pink, EOMI. ABSENT: nystagmus, scleral icterus Ear exam: PRESENT: normal external ear exam. ABSENT: bleeding, drainage Mouth exam: PRESENT: moist, neck supple, tongue midline Neck exam: PRESENT: full ROM. ABSENT: carotid bruit, JVD, lymphadenopathy, tenderness Respiratory exam: PRESENT: clear to auscultation sonia, symmetrical, unlabored. ABSENT: accessory muscle use, prolonged expiratory phas, rales, rhonchi, tachypnea, wheezes Cardiovascular exam: PRESENT: RRR - By auscultation the patient is not a regular rate and rhythm with occasional irregular beats., +S1, +S2. ABSENT: diastolic murmur, systolic murmur Pulses: PRESENT: normal carotid pulses, normal radial pulses GI/Abdominal exam: PRESENT: normal bowel sounds, soft. ABSENT: distended, guarding, mass, tenderness Rectal exam: PRESENT: deferred Gentrourinary exam: ABSENT: indwelling catheter Extremities exam: ABSENT: joint swelling, pedal edema, tenderness Musculoskeletal exam: PRESENT: ambulatory, full ROM, normal inspection. ABSENT: deformity Neurological exam: PRESENT: alert, awake, oriented to person, oriented to place, oriented to time, oriented to situation, CN II-XII grossly intact. ABSENT: altered Psychiatric exam: PRESENT: appropriate affect, normal mood. ABSENT: agitated, anxious Focused psych exam: ABSENT: delusional, paranoid, restlessness Skin exam: PRESENT: dry, warm, other - Increased pigmentation on the patient's arms from previous sun exposure Results Laboratory Results: 10/06/19 16:08 10/06/19 16:08 10/06/19 10/06/19 10/06/19 14:16 16:08 16:08 WBC 10.6 H RBC 3.65 L Hgb 11.4 L Hct 32.5 L MCV 89 MCH 31.2 MCHC 35.1 RDW 14.8 H Plt Count 367 Seg Neutrophils % 75.8 Sodium 131.4 L Potassium 4.3 Chloride 94 L Carbon Dioxide 25 Anion Gap 12 BUN 17 Creatinine 1.02 Est GFR ( Amer) > 60 Glucose 100 Calcium 9.1 Urine Color YELLOW Urine Appearance CLOUDY Urine pH 6.0 Ur Specific [place] 1.011 Urine Protein NEGATIVE Urine Glucose (UA) NEGATIVE Urine Ketones NEGATIVE Urine Blood SMALL H Urine RBC (Auto) 4 Assessment and Plan - Diagnosis (1) UTI (urinary tract infection) Qualifiers: Urinary tract infection type: site unspecified Hematuria presence: without hematuria Qualified Code(s): N39.0 - Urinary tract infection, site not specified Is this a current diagnosis for this admission?: Yes Plan: 10/06/2019 the patient has had 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 Resistance to aminoglycosides is intermittent. The patient will be admitted and placed on cefepime. The patient does have a left renal calculus and this could be a nidus for the recurrent infection. It is unknown if attempts at lithotripsy should be undertaken or if long-term IV antibiotic therapy (3 to 4 weeks) should be administered. He does not have a significant leukocytosis. He is afebrile. My suspicion is that the left renal calculus is part of the problem. He will be placed on cefepime at this time. (2) Pseudomonas aeruginosa infection Is this a current diagnosis for this admission?: Yes Plan: 10/06/2019 As noted above the Pseudomonas cultured is consistently resistant to fluoroquinolones and occasionally aminoglycosides. We will need to investigate further to determine duration of treatment especially considering the left renal calculus. (3) Renal calculus, left Is this a current diagnosis for this admission?: Yes Plan: 10/06/2019 The calculus is not obstructing and is sitting in the lower pole of the left kidney. There are no urology services on an inpatient basis. We may need to refer the patient to a urologist for evaluation. (4) Paroxysmal chronic atrial fib Is this a current diagnosis for this admission?: Yes Plan: 10/06/2019 We will continue the patient's metoprolol and Xarelto. (5) Hypertension Qualifiers: Hypertension type: essential hypertension Qualified Code(s): I10 - Essential (primary) hypertension Is this a current diagnosis for this admission?: Yes Plan: 10/06/2019 We will continue the metoprolol and amlodipine. With underlying diabetes the patient is also on statin therapy and an aspirin daily. Will monitor blood pre ssure with serial vital signs. (6) Diabetes mellitus type 2 in nonobese Is this a current diagnosis for this admission?: Yes Plan: 10/06/2019 Review of the multiple previous hospitalization showed excellent glucose control. Clinically I do not feel there is a need for Accu-Cheks or sliding scale coverage. We will continue the patient's metformin as well as a cardiac/controlled carbohydrate diet. (7) Hypothyroidism Qualifiers: Hypothyroidism type: unspecified Qualified Code(s): E03.9 - Hypothyroidism, unspecified Is this a current diagnosis for this admission?: Yes Plan: 10/06/2019 Continue 50 mcg levothyroxine. (8) Bipolar 1 disorder Is this a current diagnosis for this admission?: Yes Plan: 10/06/2019 Currently on bupropion, Celexa, Cogentin and Risperdal. We will continue his current regimen unchanged. (9) PTSD (post-traumatic stress disorder) Is this a current diagnosis for this admission?: Yes Plan: 10/06/2019 Medication regimen as above. 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 (10) Frequent falls Is this a current diagnosis for this admission?: Yes Plan: 10/06/2019 The patient was recently in after several falls. Work-up was negative. He does have his walker with him and he will maintain his walker. He reports having had 2-3 falls since his last admission. If unsteadiness is noted I will ask physical therapy to see the patient. No obvious etiology for the falls at this time. With underlying diabetes it certainly could be neuropathy but this certainly could be other possibilities. This is more likely an outpatient investigation. - Time Time Spent with patient: 35 or more minutes Medications reviewed and adjusted accordingly: Yes Anticipated discharge: Home with Homehealth
[2019-10-06] MEDS: METOPROLOL SUCCINATE 25 MG TAB.SR.24H PO SCH (21:07)
[2019-10-06] MEDS: ATORVASTATIN CALCIUM 20 MG TABLET PO SCH (21:07)
[2019-10-06] MEDS: LUBIPROSTONE 24 MCG CAPSULE PO SCH (21:07)
[2019-10-06] MEDS: BUPROPION HCL 100 MG TABLET PO SCH (21:07)
[2019-10-06] MEDS: FAMOTIDINE 20 MG TABLET PO SCH (21:08)
[2019-10-06] MEDS: BENZTROPINE MESYLATE 1 MG TABLET PO SCH (21:08)
[2019-10-06] MEDS ORDERED: CEFEPIME 2 GM/D5W RTU 2 GM/50 ML RTUPB IV SCH (22:00)
[2019-10-06] MEDS: CEFEPIME HCL 2 GM in DEXTROSE 5%-WATER 50 ML IV SCH (22:13)
[2019-10-07 05:09] LABS: ABSOLUTE BASOPHILS # (AUTO) 0.1 10^3/uL (0.0-0.2); ABSOLUTE EOSINOPHILS # (AUTO) 0.1 10^3/uL (0.0-0.6); ABSOLUTE LYMPHOCYTES (AUTO) 1.1 10^3/uL (0.5-4.7); ABSOLUTE MONOCYTES (AUTO) 0.8 10^3/uL (0.1-1.4); BASOPHILS % (AUTO) 0.6 % (0-2); EOSINOPHILS % (AUTO) 0.6 % (0-6); HEMATOCRIT 32.3 % (37.9-51.0); HEMOGLOBIN 11.3 g/dL (13.5-17.0); LYMPHOCYTES % (AUTO) 10.7 % (13-45); MEAN CORPUSCULAR HEMOGLOBIN 31.2 pg (27.0-33.4); MEAN CORPUSCULAR HGB CONC 35.1 g/dL (32.0-36.0); MEAN CORPUSCULAR VOLUME 89 fl (80-97); MONOCYTES % (AUTO) 7.7 % (3-13); PLATELET COUNT 352 10^3/uL (150-450); RED BLOOD COUNT 3.63 10^6/uL (4.35-5.55); RED CELL DISTRIBUTION WIDTH 14.5 % (11.5-14.0); SEGMENTED NEUTROPHILS % (AUTO) 80.4 % (42-78); TOTAL CELLS COUNTED % (AUTO) 100 %; WHITE BLOOD COUNT 9.9 10^3/uL (4.0-10.5)
[2019-10-07] MEDS: LEVOTHYROXINE SODIUM 0.05 MG TABLET PO SCH (05:17)
[2019-10-07 05:27] LABS: ANION GAP 10 (5-19); BLOOD UREA NITROGEN 18 mg/dL (7-20); CALCIUM 8.9 mg/dL (8.4-10.2); CARBON DIOXIDE 21 mmol/L (22-30); CHLORIDE 99 mmol/L (98-107); GLUCOSE 98 mg/dL (75-110); POTASSIUM 4.8 mmol/L (3.6-5.0)
[2019-10-07] MEDS: AMLODIPINE BESYLATE 5 MG TABLET PO SCH (09:05)
[2019-10-07] MEDS: FOLIC ACID 1 MG TABLET PO SCH (09:05)
[2019-10-07] MEDS: METOPROLOL SUCCINATE 25 MG TAB.SR.24H PO SCH ×2 (09:05→21:32)
[2019-10-07] MEDS: METFORMIN HCL 500 MG TABLET PO SCH (09:05)
[2019-10-07] MEDS: LUBIPROSTONE 24 MCG CAPSULE PO SCH ×2 (09:05→21:32)
[2019-10-07] MEDS: FAMOTIDINE 20 MG TABLET PO SCH ×2 (09:05→21:32)
[2019-10-07] MEDS: ASPIRIN 81 MG TABLET, ENT COATED PO SCH (09:05)
[2019-10-07] MEDS: CITALOPRAM HYDROBROMIDE 20 MG TABLET PO SCH (09:06)
[2019-10-07] MEDS ORDERED: HALOPERIDOL LACTATE INJ 5 MG/1 ML VIAL IV ONE (09:15)
[2019-10-07 09:43] LABS: INTERNATIONAL RATION (INR) 1.24; PROTHROMBIN TIME 15.7 SEC (11.4-15.4)
[2019-10-07 09:44] LABS: PARTIAL THROMBOPLASTIN TIME 33.9 SEC (23.5-35.8)
--- NOTE | 2019-10-07 10:41 | PDOC PROGRESS REPORT ---
Subjective Progress Note for:: 10/07/19 Subjective:: The patient was confused earlier. He wanted to leave. He was given a single dose of haloperidol. At the time of this encounter is resting comfortably in bed and is oriented. Reason For Visit: PSEUDOMONAS CYSTITIS Physical Exam Vital Signs: Temp Pulse Resp BP Pulse Ox 98.3 F 87 16 116/53 L 100 10/07/19 00:00 10/07/19 00:00 10/07/19 00:00 10/07/19 00:00 10/07/19 00:00 Intake & Output 10/06/19 10/07/19 10/08/19 06:59 06:59 06:59 Intake Total 68 Output Total 250 Balance -182 Weight 73.9 kg General appearance: PRESENT: no acute distress, cooperative, well-developed Head exam: PRESENT: atraumatic, normocephalic Respiratory exam: PRESENT: clear to auscultation sonia, symmetrical, unlabored. ABSENT: prolonged expiratory phas, rales, rhonchi, tachypnea, wheezes Cardiovascular exam: PRESENT: RRR, +S1, +S2 GI/Abdominal exam: PRESENT: normal bowel sounds, soft. ABSENT: distended, guarding, tenderness Rectal exam: PRESENT: deferred Extremities exam: ABSENT: joint swelling, pedal edema Musculoskeletal exam: PRESENT: ambulatory, full ROM, normal inspection. ABSENT: deformity Neurological exam: PRESENT: alert, awake, oriented to person, oriented to place, oriented to situation, CN II-XII grossly intact - Except he wears hearing aids Psychiatric exam: PRESENT: appropriate affect. ABSENT: agitated, anxious Focused psych exam: ABSENT: delusional, restlessness Results Laboratory Results: 10/07/19 04:53 10/07/19 04:53 10/06/19 10/06/19 10/06/19 14:16 16:08 16:08 WBC 10.6 H RBC 3.65 L Hgb 11.4 L Hct 32.5 L MCV 89 MCH 31.2 MCHC 35.1 RDW 14.8 H Plt Count 367 Seg Neutrophils % 75.8 Sodium 131.4 L Potassium 4.3 Chloride 94 L Carbon Dioxide 25 Anion Gap 12 BUN 17 Creatinine 1.02 Est GFR ( Amer) > 60 Glucose 100 Calcium 9.1 Magnesium Urine Color YELLOW Urine Appearance CLOUDY Urine pH 6.0 Ur Specific [place] 1.011 Urine Protein NEGATIVE Urine Glucose (UA) NEGATIVE Urine Ketones NEGATIVE Urine Blood SMALL H Urine RBC (Auto) 4 10/07/19 10/07/19 04:53 04:53 WBC 9.9 RBC 3.63 L Hgb 11.3 L Hct 32.3 L MCV 89 MCH 31.2 MCHC 35.1 RDW 14.5 H Plt Count 352 Seg Neutrophils % 80.4 H Sodium 129.8 L Potassium 4.8 Chloride 99 Carbon Dioxide 21 L Anion Gap 10 BUN 18 Creatinine 1.09 Est GFR ( Amer) > 60 Glucose 98 Calcium 8.9 Magnesium 1.9 Urine Color Urine Appearance Urine pH Ur Specific [place] Urine Protein Urine Glucose (UA) Urine Ketones Urine Blood Urine RBC (Auto) Assessment and Plan - Diagnosis (1) UTI (urinary tract infection) Qualifiers: Urinary tract infection type: site unspecified Hematuria presence: without hematuria Qualified Code(s): N39.0 - Urinary tract infection, site not specified Is this a current diagnosis for this admission?: Yes Plan: 10/06/2019 the patient has had 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 Resistance to aminoglycosides is intermittent. The patient will be admitted and placed on cefepime. The patient does have a left renal calculus and this could be a nidus for the recurrent infection. It is unknown if attempts at lithotripsy should be undertaken or if long-term IV antibiotic therapy (3 to 4 weeks) should be administered. He does not have a significant leukocytosis. He is afebrile. My suspicion is that the left renal calculus is part of the problem. He will be placed on cefepime at this time. 10/07/2019 After looking at the options I feel the best plan is to place a PICC line and administer 3 weeks of intravenous cefepime 1 g every 12 hours. The patient then should see a urologist to see what his thoughts are about removing the stone. I believe the calculus is the nidus for recurrent infection. (2) Pseudomonas aeruginosa infection Is this a current diagnosis for this admission?: Yes Plan: 10/06/2019 As noted above the Pseudomonas cultured is consistently resistant to fluoroquinolones and occasionally aminoglycosides. We will need to investigate further to determine duration of treatment especially considering the left renal calculus. 10/07/2019 Plan as above (3) Renal calculus, left Is this a current diagnosis for this admission?: Yes Plan: 10/06/2019 The calculus is not obstructing and is sitting in the lower pole of the left kidney. There are no urology services on an inpatient basis. We may need to refer the patient to a urologist for evaluation. 10/07/2019 Plan as above (4) Paroxysmal chronic atrial fib Is this a current diagnosis for this admission?: Yes Plan: 10/06/2019 We will continue the patient's metoprolol and Xarelto. 10/07/2019 Has been stable on current medications. No changes at this time. (5) Hypertension Qualifiers: Hypertension type: essential hypertension Qualified Code(s): I10 - Essjuan jose tial (primary) hypertension Is this a current diagnosis for this admission?: Yes Plan: 10/06/2019 We will continue the metoprolol and amlodipine. With underlying diabetes the patient is also on statin therapy and an aspirin daily. Will monitor blood pressure with serial vital signs. 10/07/2019 Good blood pressure control on current medication regimen. No changes. (6) Diabetes mellitus type 2 in nonobese Is this a current diagnosis for this admission?: Yes Plan: 10/06/2019 Review of the multiple previous hospitalization showed excellent glucose control. Clinically I do not feel there is a need for Accu-Cheks or sliding scale coverage. We will continue the patient's metformin as well as a cardiac/controlled carbohydrate diet. 10/07/2019 Glucose was 98 this morning. No need for Accu-Cheks or sliding scale coverage. (7) Hypothyroidism Qualifiers: Hypothyroidism type: unspecified Qualified Code(s): E03.9 - Hypothyroidism, unspecified Is this a current diagnosis for this admission?: Yes Plan: 10/06/2019 Continue 50 mcg levothyroxine. 10/07/2019 No changes at this time (8) Bipolar 1 disorder Is this a current diagnosis for this admission?: Yes Plan: 10/06/2019 Currently on bupropion, Celexa, Cogentin and Risperdal. We will continue his current regimen unchanged. 10/07/2019 His confusion this morning was likely related to his bipolar disorder. His medications have not been administered yet. He was quite calm when he was seen this morning. PRN haloperidol and small doses will be available. (9) PTSD (post-traumatic stress disorder) Is this a current diagnosis for this admission?: Yes Plan: 10/06/2019 Medication regimen as above. 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 10/07/2019 Medications as above (10) Frequent falls Is this a current diagnosis for this admission?: Yes Plan: 10/06/2019 The patient was recently in after several falls. Work-up was negative. He does have his walker with him and he will maintain his walker. He reports having had 2-3 falls since his last admission. If unsteadiness is noted I will ask p hysical therapy to see the patient. No obvious etiology for the falls at this time. With underlying diabetes it certainly could be neuropathy but this certainly could be other possibilities. This is more likely an outpatient investigation. 10/07/2019 Stable at this time. No evidence of imbalance. - Time Time Spent with patient: 15-24 minutes Medications reviewed and adjusted accordingly: Yes Anticipated discharge: Other - Home infusion
[2019-10-07] MEDS: BUPROPION HCL 75 MG TABLET PO SCH (10:56)
[2019-10-07] MEDS: BENZTROPINE MESYLATE 1 MG TABLET PO SCH ×2 (10:57→21:32)
[2019-10-07] MEDS: RISPERIDONE 1 MG TABLET PO SCH (11:29)
[2019-10-07] MEDS: CEFEPIME HCL 2 GM in DEXTROSE 5%-WATER 50 ML IV SCH (12:34)
--- NOTE | 2019-10-07 14:20 | RADIOLOGY REPORT (SQ) ---
EXAM DESCRIPTION: PICC INSERTION; FLUORO/CV PLACEMENT; U/S GUIDE FOR VASCULAR ACCESS COMPLETED DATE/TIME: 10/07/2019 1:29 pm REASON FOR STUDY: Long-term antibiotics; CUSTODIAL ABX I48.21 PERMANENT ATRIAL FIBRILLATION COMPARISON: Two-view chest 08/29/2019 FLUOROSCOPY TIME: 37 seconds 1 digital C-arm and 1 ultrasound images saved to PACS. TECHNIQUE: Fluoroscopic and ultrasound guided PICC placement. LIMITATIONS: None. PROCEDURE: After written consent and assessment were obtained, the patient was brought into the fluo roscopy room and placed supine on the table. Ultrasound evaluation of potential access sites were per formed. After successfully identifying a patent left basilic vein, the left arm was prepped and drape d in a sterile fashion along with the ultrasound probe. The entry site was anesthetized with 1% lidoc chioma. A 21 gauge 7 cm needle was advanced through the skin and into the basilic vein under live ultra sound guidance. An ultrasound image was saved to PACS confirming access site. A .018 guide wire was then inserted through the needle and into the venous system. The needle was then removed and an 11 b lade scalpel was used to make a 1cm skin incision. A 5 fr peel-away sheath was advanced over the wir e and into the venous system. A measurement was then made using the existing wire and live fluoroscop ic guidance. The wire was then removed and trimmed. The PICC was advanced through the peel-away sheat h and into the venous system. The peel-away sheath was removed and the catheter was adhered to the pa tients arm with a stat lock. The catheter was then aspirated and flushed and a sterile bandage was pl aced over the access site. A fluoroscopic spot image was saved to PACS confirming the catheter tip w ithin the superior vena cava. IMPRESSION: SUCCESSFUL PLACEMENT OF A 5 FR DUAL LUMEN 41 CM PICC IN THE LEFT BASILIC VEIN. COMMENT: Patient medication list reviewed: Yes- Quality ID# 130:Eligible professional attests to doc umenting in the medical record they obtained, updated, or reviewed the patient's current medications. . Quality ID 145: Final reports for procedures using fluoroscopy that document radiation exposure jan farhat, or exposure time and number of fluorographic images (if radiation exposure indices are not avail able) Quality ID #76: The patient was prepped and draped using maximum sterile barrier technique including cap, mask, sterile gown, sterile gloves, a large sterile sheet, hand hygiene, and 2% Chlorhexidine fo r cutaneous antisepsis. When ultrasound is used, sterile ultrasound techniques are followed requiring sterile gel and sterile probes. TECHNICAL DOCUMENTATION: JOB ID: [id number] 2010 [employer]- All Rights Reserved rev-12/04 Reading location - IP/workstation name: [email or web address]
[2019-10-07] MEDS ORDERED: RIVAROXABAN 10 MG TABLET PO SCH (17:00)
[2019-10-07] MEDS: BUPROPION HCL 100 MG TABLET PO SCH (17:54)
[2019-10-07] MEDS ORDERED: LORAZEPAM INJ 2 MG/1 ML VIAL IV PRN (20:59)
[2019-10-07] MEDS: ATORVASTATIN CALCIUM 20 MG TABLET PO SCH (21:32)
[2019-10-07] MEDS: CEFEPIME 1 GM/D5W RTU 1 GM/50 ML RTUPB IV SCH (21:32)
[2019-10-07] MEDS ORDERED: CEFEPIME HCL 1 GM in DEXTROSE 5%-WATER 50 ML IV SCH (22:00)
[2019-10-08] MEDS: LEVOTHYROXINE SODIUM 0.05 MG TABLET PO SCH (05:37)
[2019-10-08] MEDS: METFORMIN HCL 500 MG TABLET PO SCH (09:04)
[2019-10-08] MEDS: BUPROPION HCL 75 MG TABLET PO SCH (09:04)
--- NOTE | 2019-10-08 09:58 | PDOC DISCHARGE SUMMARY ---
Impression - Admit/DC Date/PCP Admission Date/Primary Care Provider: 10/06/19 15:57 SILAS BRENNAN MD Discharge Date: 10/08/19 - Discharge Diagnosis (1) UTI (urinary tract infection) Is this a current diagnosis for this admission?: Yes (2) Pseudomonas aeruginosa infection Is this a current diagnosis for this admission?: Yes (3) Renal calculus, left Is this a current diagnosis for this admission?: Yes (4) Paroxysmal chronic atrial fib Is this a current diagnosis for this admission?: Yes (5) Hypertension Is this a current diagnosis for this admission?: Yes (6) Diabetes mellitus type 2 in nonobese Is this a current diagnosis for this admission?: Yes (7) Hypothyroidism Is this a current diagnosis for this admission?: Yes (8) Bipolar 1 disorder Is this a current diagnosis for this admission?: Yes (9) PTSD (post-traumatic stress disorder) Is this a current diagnosis for this admission?: Yes (10) Frequent falls Is this a current diagnosis for this admission?: Yes - Additional Information Resuscitation Status: Full Code Discharge Diet: Cardiac, Diabetic Discharge Activity: Activity As Tolerated Referrals: [facility] [Outside] [facility] [Outside] SILAS BRENNAN MD [Primary Care Provider] - Follow up as needed Home Medications: Levothyroxine Sodium 50 mcg PO QAM@0600 08/29/19 Metformin HCl 500 mg PO DAILY 08/29/19 Pravastatin Sodium [Pravachol] 20 mg PO QHS 08/29/19 Rivaroxaban [Xarelto] 20 mg PO QPM 08/29/19 Finasteride [Proscar 5 mg Tablet] 5 mg PO DAILY 10/06/19 Lisinopril/Hydrochlorothiazide [Lisinopril-Hctz 20-12.5 mg Tab] 1 each PO DAILY 10/06/19 Tamsulosin HCl [Flomax 0.4 mg Cap.sr] 0.8 mg PO QHS 10/06/19 Verapamil HCl [Verapamil ER] 240 mg PO QAM 10/06/19 Aspirin [Ecotrin 81 mg EC Tablet] 81 mg PO DAILY tabec 10/08/19 Benztropine Mesylate [Cogentin 1 mg Tablet] 1 mg PO Q12 tablet 10/08/19 Bupropion HCl [Wellbutrin 100 mg Tablet] 100 mg PO QPM tablet 10/08/19 Bupropion HCl [Wellbutrin 75 mg Tablet] 150 mg PO QAM tablet 10/08/19 Citalopram Hydrobromide [Celexa 20 mg Tablet] 40 mg PO DAILY tablet 10/08/19 Folic Acid [Folvite 1 mg Tablet] 1 mg PO DAILY tablet 10/08/19 Levothyroxine Sodium [Synthroid 0.05 mg Tablet] 0.05 mg PO Q6AM tablet 10/08/19 Lubiprostone [Amitiza 24 Mcg Capsule] 24 mcg PO Q12 capsule 10/08/19 Metformin HCl [Glucophage 500 mg Tablet] 500 mg PO QAM tablet 10/08/19 Metoprolol Succinate [Toprol Xl 25 mg Tab.sr] 25 mg PO Q12 tab.sr.24h 10/08/19 Risperidone [Risperdal 1 mg Tablet] 1 mg PO DAILY tablet 10/08/19 Rivaroxaban [Xarelto 10 mg Tablet] 20 mg PO WSUPPER tablet 10/08/19 History of Present Illiness History of Present Illness: CESAR ARCINIEGA JR is a 74 year old male who has had recurrent urinary tract infections with pseudomonas aeruginosa. The isolate has been resistant to quinolone therapy therefore requiring intravenous medications. He reports that he was noting dark urine. Several days ago they obtained a urine culture through his primary care provider's office. The culture results came back today and the patient was positive for pseudomonas aeruginosa again. He was admitted for a similar occurrence approximately 6 to 8 weeks ago. The patient denies fever, chills, nausea or vomiting. He denies lightheadedness or dizziness. He states that he has not been feeling poorly but does report occasional urinary frequency. He has noted dark clumps of material in his urine, possibly blood clots. His white blood cell count was minimally elevated at 10.6. Serum chemistries are pending. Blood cultures were obtained. Urine culture from 48 hours ago revealed the Pseudomonas. This urine culture differs from the August 29 urine culture and that this organism is sensitive to the aminoglycosides whereas the previous organism was not. Otherwise it has the same sensitivity pattern with resistance to quinolones and sensitive to the other medications tested. The patient will be admitted and given IV antibiotics. Because of the recurrence of this infection he may require a PICC line with longer term outpatient antibiotic therapy. Hospital Course Hospital Course: The patient had an unremarkable hospital course. There is no surprise that his urine and blood cultures are still positive. It is likely the kidney stone that causes recurrence. Prostatitis cannot be ruled out. He has a PICC line and will receive cefepime 1 g twice daily for 3 weeks. His white count is normal. He is afebrile. Is not having any pain. He is safe to discharge with ongoing treatment plan. Physical Exam Vital Signs: Temp Pulse Resp BP Pulse Ox 97.5 F 65 18 130/80 H 100 10/08/19 08:12 10/08/19 08:12 10/08/19 08:12 10/08/19 08:12 10/08/19 08:12 Intake & Output 10/07/19 10/08/19 10/09/19 06:59 06:59 06:59 Intake Total 68 570 Output Total 250 200 Balance -182 370 Weight 73.9 kg 73.9 kg General appearance: PRESENT: no acute distress Head exam: PRESENT: atraumatic, normocephalic Respiratory exam: PRESENT: clear to auscultation sonia, symmetrical, unlabored. ABSENT: rales, rhonchi, tachypnea, wheezes Cardiovascular exam: PRESENT: RRR, +S1, +S2, systolic murmur - 2/6 GI/Abdominal exam: PRESENT: normal bowel sounds, soft. ABSENT: distended, guar ding, tenderness Rectal exam: PRESENT: deferred Extremities exam: ABSENT: joint swelling, pedal edema Musculoskeletal exam: PRESENT: ambulatory, full ROM, normal inspection. ABSENT: deformity Neurological exam: PRESENT: alert, awake, oriented to person, oriented to place, oriented to situation, CN II-XII grossly intact Psychiatric exam: PRESENT: appropriate affect. ABSENT: agitated, anxious Focused psych exam: ABSENT: delusional, restlessness Results Laboratory Results: WBC 9.9 10^3/uL (4.0-10.5) 10/07/19 04:53 RBC 3.63 10^6/uL (4.35-5.55) L 10/07/19 04:53 Hgb 11.3 g/dL (13.5-17.0) L 10/07/19 04:53 Hct 32.3 % (37.9-51.0) L 10/07/19 04:53 MCV 89 fl (80-97) 10/07/19 04:53 MCH 31.2 pg (27.0-33.4) 10/07/19 04:53 MCHC 35.1 g/dL (32.0-36.0) 10/07/19 04:53 RDW 14.5 % (11.5-14.0) H 10/07/19 04:53 Plt Count 352 10^3/uL (150-450) 10/07/19 04:53 Lymph % (Auto) 10.7 % (13-45) L 10/07/19 04:53 [place] % (Auto) 7.7 % (3-13) 10/07/19 04:53 Eos % (Auto) 0.6 % (0-6) 10/07/19 04:53 Baso % (Auto) 0.6 % (0-2) 10/07/19 04:53 Absolute Neuts (auto) 8.0 10^3/uL (1.7-8.2) 10/07/19 04:53 Absolute Lymphs (auto) 1.1 10^3/uL (0.5-4.7) 10/07/19 04:53 Absolute Monos (auto) 0.8 10^3/uL (0.1-1.4) 10/07/19 04:53 Absolute Eos (auto) 0.1 10^3/uL (0.0-0.6) 10/07/19 04:53 Absolute Basos (auto) 0.1 10^3/uL (0.0-0.2) 10/07/19 04:53 Seg Neutrophils % 80.4 % (42-78) H 10/07/19 04:53 PT 15.7 SEC (11.4-15.4) H 10/07/19 09:10 INR 1.24 10/07/19 09:10 APTT 33.9 SEC (23.5-35.8) 10/07/19 09:10 Sodium 129.8 mmol/L (137-145) L 10/07/19 04:53 Potassium 4.8 mmol/L (3.6-5.0) 10/07/19 04:53 Chloride 99 mmol/L (98-107) 10/07/19 04:53 Carbon Dioxide 21 mmol/L (22-30) L 10/07/19 04:53 Anion Gap 10 (5-19) 10/07/19 04:53 BUN 18 mg/dL (7-20) 10/07/19 04:53 Creatinine 1.09 mg/dL (0.52-1.25) 10/07/19 04:53 Est GFR ( Amer) > 60 (>60) 10/07/19 04:53 Est GFR (MDRD) Non-Af > 60 (>60) 10/07/19 04:53 Glucose 98 mg/dL (75-110) 10/07/19 04:53 Calcium 8.9 mg/dL (8.4-10.2) 10/07/19 04:53 Magnesium 1.9 mg/dL (1.6-2.3) 10/07/19 04:53 Urine Color YELLOW 10/06/19 14:16 Urine Appearance CLOUDY 10/06/19 14:16 Urine pH 6.0 (5.0-9.0) 10/06/19 14:16 Ur Specific [place] 1.011 10/06/19 14:16 Urine Protein NEGATIVE mg/dL (NEGATIVE) 10/06/19 14:16 Urine Glucose (UA) NEGATIVE mg/dL (NEGATIVE) 10/06/19 14:16 Urine Ketones NEGATIVE mg/dL (NEGATIVE) 10/06/19 14:16 Urine Blood SMALL (NEGATIVE) H 10/06/19 14:16 Urine Nitrite (Reflex) NEGATIVE (NEGATIVE) 10/06/19 14:16 Urine Bilirubin NEGATIVE (NEGATIVE) 10/06/19 14:16 Urine Urobilinogen NEGATIVE mg/dL (<2.0) 10/06/19 14:16 Leukocyte Esterase Rfl LARGE (NEGATIVE) H 10/06/19 14:16 Urine RBC (Auto) 4 /HPF 10/06/19 14:16 Urine Bacteria (Auto) 1+ /HPF 10/06/19 14:16 Urine WBC (Reflex) > 182 /HPF 10/06/19 14:16 Urine WBC Clumps FEW /HPF 10/06/19 14:16 Urine Mucus (Auto) RARE /LPF 10/06/19 14:16 Urine Ascorbic Acid NEGATIVE (NEGATIVE) 10/06/19 14:16 Impressions: Guidance Fluoroscopy 10/07/19 00:00 IMPRESSION: SUCCESSFUL PLACEMENT OF A 5 FR DUAL LUMEN 41 CM PICC IN THE LEFT BASILIC VEIN. Interventional Vascular Procedure 10/07/19 00:00 IMPRESSION: SUCCESSFUL PLACEMENT OF A 5 FR DUAL LUMEN 41 CM PICC IN THE LEFT BASILIC VEIN. PICC Line Insertion 10/07/19 00:00 IMPRESSION: SUCCESSFUL PLACEMENT OF A 5 FR DUAL LUMEN 41 CM PICC IN THE LEFT BASILIC VEIN. Plan Health Concerns: Recurrent Pseudomonas cystitis with bacteremia likely related to kidney stone Plan of Treatment: Complete IV antibiotic therapy for 3 weeks. Then refer to urology to assess ability to remove the stone and prevent recurrent infections. Goals: Complete resolution recurrent urinary tract/bacteremic infection with Pseudomonas Time Spent: Greater than 30 Minutes Stroke Is this a Stroke Patient?: No Acute Heart Failure - Is this a Heart Failure Patient?: No
[2019-10-08] MEDS: CEFEPIME 1 GM/D5W RTU 1 GM/50 ML RTUPB IV SCH (10:01)
[2019-10-08] MEDS: LUBIPROSTONE 24 MCG CAPSULE PO SCH (10:14)
[2019-10-08] MEDS: CITALOPRAM HYDROBROMIDE 20 MG TABLET PO SCH (10:14)
[2019-10-08] MEDS: ASPIRIN 81 MG TABLET, ENT COATED PO SCH (10:14)
[2019-10-08] MEDS: METOPROLOL SUCCINATE 25 MG TAB.SR.24H PO SCH (10:15)
[2019-10-08] MEDS: AMLODIPINE BESYLATE 5 MG TABLET PO SCH (10:15)
[2019-10-08] MEDS: RISPERIDONE 1 MG TABLET PO SCH (10:16)
[2019-10-08] MEDS: BENZTROPINE MESYLATE 1 MG TABLET PO SCH (10:16)
[2019-10-08] MEDS: FOLIC ACID 1 MG TABLET PO SCH (10:16)
[2019-10-08] MEDS: FAMOTIDINE 20 MG TABLET PO SCH (10:18)
[2019-10-08] MEDS ORDERED: NORMAL SALINE 10 ML SDV (AFTER EACH USE) IV PRN (11:00)
[2019-10-08 11:31] VITALS: BP 116/53
[2019-10-08] MEDS ORDERED: NORMAL SALINE 10 ML SDV (SCHEDULED) IV SCH (22:00)
== END 2019-10-08 12:13 | disposition home health service (06) ==
LOC: ER 13:57 → EH 15:57 → INTOOBSV 15:57 → 4W 18:24
PROVIDERS: ADMIT Hospitalist; ATTEND Hospitalist
DX: N30.90 Cystitis, unspecified without hematuria (principal); B96.5 Pseudomonas (aeruginosa) (mallei) (pseudomallei) as the cause of diseases classified elsewhere; Z16.23 Resistance to quinolones and fluoroquinolones; N20.0 Calculus of kidney; I48.0 Paroxysmal atrial fibrillation; E11.9 Type 2 diabetes mellitus without complications; E03.9 Hypothyroidism, unspecified; F31.9 Bipolar disorder, unspecified; F43.10 Post-traumatic stress disorder, unspecified; Y36.90XS War operations, unspecified, sequela; E78.5 Hyperlipidemia, unspecified; R29.6 Repeated falls; I10 Essential (primary) hypertension; K59.09 Other constipation; Z79.899 Other long term (current) drug therapy; Z79.84 Long term (current) use of oral hypoglycemic drugs; Z79.01 Long term (current) use of anticoagulants; Z79.82 Long term (current) use of aspirin; Z87.440 Personal history of urinary (tract) infections; Z16.29 Resistance to other single specified antibiotic; Z85.828 Personal history of other malignant neoplasm of skin; Z87.891 Personal history of nicotine dependence
CPT/HCPCS: 99284; 36415 ×2; 87040; 87086; 83735; 85025 ×2; 85610; 85730; 87077; 87088; 80048 ×2; 81001; 87186; 87150 ×26; 36573; G0378 ×4; A9270 ×32; J0692 ×4; J3490 ×3; J7060; J1642 ×2; 76937; 77001

== ENCOUNTER 2019-11-10 11:55 | Inpatient (IN) | payer MEDICARE, BC ==
[2019-11-10] MEDS ORDERED: GLUCAGON,HUMAN RECOMB 1 MG INJ IM PRN (12:07)
[2019-11-10] MEDS ORDERED: DEXTROSE 40% GEL 15 GM TUBE PO PRN ×2 (12:07)
[2019-11-10] MEDS ORDERED: DEXTROSE 50%-WATER 25 GM/50 ML DISP.SYRIN IV PRN ×2 (12:07)
[2019-11-10 13:29] LABS: ALBUMIN 4.5 g/dL (3.5-5.0); ALKALINE PHOSPHATASE 73 U/L (38-126); ANION GAP 14 (5-19); ASPARTATE AMINO TRANSFERASE 17 U/L (17-59); BILIRUBIN,TOTAL 0.4 mg/dL (0.2-1.3); BLOOD UREA NITROGEN 14 mg/dL (7-20); CALCIUM 9.6 mg/dL (8.4-10.2); CARBON DIOXIDE 23 mmol/L (22-30); CHLORIDE 94 mmol/L (98-107); GLUCOSE 117 mg/dL (75-110); POTASSIUM 4.2 mmol/L (3.6-5.0); TOTAL PROTEIN 7.5 g/dL (6.3-8.2)
[2019-11-10] MEDS: PANTOPRAZOLE SODIUM 40 MG TABLET.DR PO SCH (13:30)
--- NOTE | 2019-11-10 13:36 | PDOC H&P ---
History of Present Illness Admission Date/PCP: 11/10/19 11:55 SILAS BRENNAN MD Patient complains of: Recurrent UTI History of Present Illness: CESAR ARCINIEGA JR is a 74 year old male 74-year-old male with history of hypertension, diabetes mellitus, atrial fibrillation on Xarelto, BPH, PTSD, recurrent UTI went to see primary care physician for recurrence of urinary symptoms and UTI, patient was referred to the hospital for a direct admit based on the fact that he has this multiple recurrent UTI with urine cultures positive for Pseudomonas patient was recently in this hospital and he was discharged on IV cephapirin received 3 weeks of IV antibiotic therapy with the PICC line again his symptoms recurred. Dr. Brennan after speaking to the patient and family members referred him to the hospital for IV antibiotic therapy blood cultures, urine culture and possible need to place PICC line again for outpatient antibiotic therapy. Patient denies any fevers denies any abdominal pain but complaining of difficulty in urination but denies any burning denies any hematuria. Past Medical History Cardiac Medical History: Reports: Atrial Fibrillation, Hyperlipidema, Hypertension Denies: Congestive Heart Failure, Coronary Artery Disease, Myocardial Infarction Pulmonary Medical History: Reports: Chronic Obstructive Pulmonary Disease (COPD) Denies: Asthma, Bronchitis, Pneumonia, Tuberculosis Neurological Medical History: Denies: Seizures Endocrine Medical History: Reports: Diabetes Mellitus Type 2, Hypothyroidism Renal/ Medical History: Denies: End Stage Renal Disease Malignancy Medical History: Reports: Skin Cancer GI Medical History: Denies: Cirrhosis, Gastroesophageal Reflux Disease, Hepatitis, Hiatal Hernia Musculoskeltal Medical History: Reports: Arthritis Psychiatric Medical History: Reports: Depression, Post Traumatic Stress Disorder Denies: Bipolar Disorder Hematology: Denies: Anemia, Sickle Cell Disease, Bleeding Tendencies Past Surgical History Past Surgical History: Reports: Orthopedic Surgery - cervical & lumbar laminectomies orif L lis franc, Tonsillectomy Denies: Pacemaker Social History Information Source: Patient Smoking Status: Former Smoker Electronic Cigarette use?: No Frequency of Alcohol Use: None Hx Recreational Drug Use: No Drugs: None Hx Prescription Drug Abuse: No - Advance Directive Resuscitation Status: Full Code Family History Family History: Arthritis, CAD, CVA, Hyperlipidemia, Hypertension, Malignancy. denies: DM, Thyroid Disfunction Parental Family History Reviewed: Yes - Habitus mellitus hypertension Children Family History Reviewed: Yes Sibling(s) Family History Reviewed.: Yes Medication/Allergy Home Medications: Levothyroxine Sodium 50 mcg PO QAM@0600 08/29/19 Metformin HCl 500 mg PO DAILY 08/29/19 Pravastatin Sodium [Pravachol] 20 mg PO QHS 08/29/19 Rivaroxaban [Xarelto] 20 mg PO QPM 08/29/19 Finasteride [Proscar 5 mg Tablet] 5 mg PO DAILY 10/06/19 Lisinopril/Hydrochlorothiazide [Lisinopril-Hctz 20-12.5 mg Tab] 1 each PO DAILY 10/06/19 Tamsulosin HCl [Flomax 0.4 mg Cap.sr] 0.8 mg PO QHS 10/06/19 Verapamil HCl [Verapamil ER] 240 mg PO QAM 10/06/19 Aspirin [Ecotrin 81 mg EC Tablet] 81 mg PO DAILY tabec 10/08/19 Benztropine Mesylate [Cogentin 1 mg Tablet] 1 mg PO Q12 tablet 10/08/19 Bupropion HCl [Wellbutrin 100 mg Tablet] 100 mg PO QPM tablet 10/08/19 Bupropion HCl [Wellbutrin 75 mg Tablet] 150 mg PO QAM tablet 10/08/19 Citalopram Hydrobromide [Celexa 20 mg Tablet] 40 mg PO DAILY tablet 10/08/19 Folic Acid [Folvite 1 mg Tablet] 1 mg PO DAILY tablet 10/08/19 Levothyroxine Sodium [Synthroid 0.05 mg Tablet] 0.05 mg PO Q6AM tablet 10/08/19 Lubiprostone [Amitiza 24 Mcg Capsule] 24 mcg PO Q12 capsule 10/08/19 Metformin HCl [Glucophage 500 mg Tablet] 500 mg PO QAM tablet 10/08/19 Metoprolol Succinate [Toprol Xl 25 mg Tab.sr] 25 mg PO Q12 tab.sr.24h 10/08/19 Risperidone [Risperdal 1 mg Tablet] 1 mg PO DAILY tablet 10/08/19 Rivaroxaban [Xarelto 10 mg Tablet] 20 mg PO WSUPPER tablet 10/08/19 Allergies/Adverse Reactions: acetaminophen [From Tylenol] Adverse Reaction (Verified 08/29/19 10:02) steroids Adverse Reaction (Intermediate, Uncoded 08/29/19 10:02) elevated bp Review of Systems Constitutional: ABSENT: fever(s), headache(s) Eyes: ABSENT: visual disturbances Ears: ABSENT: hearing changes Nose, Mouth, and Throat: ABSENT: sore throat Cardiovascular: ABSENT: dyspnea on exertion, orthropnea, palpitations Respiratory: ABSENT: dyspnea, hemoptysis Gastrointestinal: ABSENT: diarrhea, dysphagia, heartburn, hematemesis Genitourinary: PRESENT: difficulty urinating. ABSENT: dysuria, hematuria Integumentary: ABSENT: rash Neurological: ABSENT: convulsions, focal weakness, frequent falls, lack of coordination Psychiatric: PRESENT: as per HPI Physical Exam Vital Signs: Temp Pulse Resp BP Pulse Ox 97.3 F 76 16 117/66 100 11/10/19 12:26 11/10/19 12:28 11/10/19 12:26 11/10/19 12:26 11/10/19 12:26 Intake & Output 11/09/19 11/10/19 11/11/19 06:59 06:59 06:59 Weight 97.3 kg General appearance: PRESENT: no acute distress, well-developed, other Head exam: PRESENT: atraumatic Eye exam: PRESENT: other - Left eye with eye patch. Mouth exam: PRESENT: moist, tongue midline Teeth exam: PRESENT: poor dentation Neck exam: ABSENT: carotid bruit, JVD, lymphadenopathy, thyromegaly Respiratory exam: PRESENT: decreased breath sounds Cardiovascular exam: PRESENT: RRR. ABSENT: diastolic murmur, rubs, systolic murmur GI/Abdominal exam: PRESENT: normal bowel sounds, soft. ABSENT: distended, guarding, mass, organolmegaly, rebound, tenderness Rectal exam: PRESENT: deferred Extremities exam: PRESENT: full ROM. ABSENT: calf tenderness, clubbing, pedal edema Neurological exam: PRESENT: alert, awake, oriented to person, oriented to place, oriented to time, oriented to situation, CN II-XII grossly intact. ABSENT: motor sensory deficit Psychiatric exam: PRESENT: appropriate affect, normal mood. ABSENT: homicidal ideation, suicidal ideation Assessment and Plan - Diagnosis (1) UTI (urinary tract infection) Qualifiers: Is this a current diagnosis for this admission?: Yes Plan: 11/10/2019-patient is going to be admitted to medical floor for recurrent UTI and a recent urine culture is positive for Pseudomonas. Started on IV cefepime. Blood cultures urine cultures are requested. Once the blood cultures are negative plan to arrange for a PICC line. CT abdomen pelvis with IV contrast was requested. GI prophylaxis initiated patient is already on Xarelto. (2) Diabetes mellitus type 2 in nonobese Is this a current diagnosis for this admission?: No Plan: 11/10/2019-patient has history of type 2 diabetes mellitus on metformin at home to hold the medication at this time and started insulin sliding scale before meals and at bedtime. (3) Hypertension Qualifiers: Hypertension type: essential hypertension Qualified Code(s): I10 - Essential (primary) hypertension Is this a current diagnosis for this admission?: No Plan: 11/10/19-patient has history of chronic essential hypertension plan to restart lisinopril/hydrochlorothiazide during the hospital stay. (4) Paroxysmal chronic atrial fib Is this a current diagnosis for this admission?: No Plan: 11/10/2019-patient has history of paroxysmal atrial fibrillation on examination in sinus rhythm. Plan is to continue Xarelto during the hospital stay. (5) BPH (benign prostatic hyperplasia) Is this a current diagnosis for this admission?: No Plan: 11/10/2019-patient has history of BPH to continue Flomax and finasteride during the hospital stay. (6) PTSD (post-traumatic stress disorder) Is this a current diagnosis for this admission?: No Plan: 11/10/19- to continue home meds
[2019-11-10 13:51] LABS: ABSOLUTE BASOPHILS # (AUTO) 0.1 10^3/uL (0.0-0.2); ABSOLUTE EOSINOPHILS # (AUTO) 0.2 10^3/uL (0.0-0.6); ABSOLUTE LYMPHOCYTES (AUTO) 2.3 10^3/uL (0.5-4.7); ABSOLUTE MONOCYTES (AUTO) 0.6 10^3/uL (0.1-1.4); BASOPHILS % (AUTO) 1.1 % (0-2); EOSINOPHILS % (AUTO) 2.6 % (0-6); HEMATOCRIT 33.6 % (37.9-51.0); HEMOGLOBIN 11.9 g/dL (13.5-17.0); LYMPHOCYTES % (AUTO) 31.7 % (13-45); MEAN CORPUSCULAR HEMOGLOBIN 31.4 pg (27.0-33.4); MEAN CORPUSCULAR HGB CONC 35.4 g/dL (32.0-36.0); MEAN CORPUSCULAR VOLUME 89 fl (80-97); MONOCYTES % (AUTO) 8.3 % (3-13); PLATELET COUNT 357 10^3/uL (150-450); RED BLOOD COUNT 3.79 10^6/uL (4.35-5.55); RED CELL DISTRIBUTION WIDTH 15.6 % (11.5-14.0); SEGMENTED NEUTROPHILS % (AUTO) 56.3 % (42-78); TOTAL CELLS COUNTED % (AUTO) 100 %; WHITE BLOOD COUNT 7.1 10^3/uL (4.0-10.5)
[2019-11-10] MEDS ORDERED: CEFEPIME HCL 2 GM in DEXTROSE 5%-WATER 50 ML IV ONE (14:00)
[2019-11-10] MEDS ORDERED: HEPARIN SOD (PORCINE) 5,000 UNIT/ML 1 ML VIAL SUBCUT SCH (14:00)
[2019-11-10 14:01] LABS: PROTHROMBIN TIME 17.3 SEC (11.4-15.4)
--- NOTE | 2019-11-10 14:47 | RADIOLOGY REPORT (SQ) ---
EXAM DESCRIPTION: CT ABD/PELVIS COMBO IMAGES COMPLETED DATE/TIME: 11/10/2019 2:19 pm REASON FOR STUDY: rec uti/kidneystones/abd pain COMPARISON: 08/29/2019 TECHNIQUE: CT scan of the abdomen and pelvis performed with and without intravenous contrast, and wi thout oral contrast. Contrasted imaging performed helical scanning technique and dynamic intravenous contrast injection. Images reviewed with lung, soft tissue, and bone windows. Reconstructed coronal a nd sagittal MPR images reviewed. Delayed images for evaluation of the urinary system also acquired. A ll images stored on PACS. All CT scanners at this facility use dose modulation, iterative reconstruction, and/or weight based d osing when appropriate to reduce radiation dose to as low as reasonably achievable (ALARA). [facility]: Dose Right [facility]: CareDose [facility]: Dose Right [facility]: Teradose 4D [facility]: Hitmeister CONTRAST TYPE AND DOSE: contrast/concentration: Isovue 350.00 mg/ml; Total Contrast Delivered: 100.0 ml; Total Saline Delivered: 72.0 ml RENAL FUNCTION: GFR > 60. RADIATION DOSE: CT Rad equipment meets quality standard of care and radiation dose reduction techniq ues were employed. CTDIvol: 16.9 - 19.2 mGy. DLP: 4197 mGy-cm. . LIMITATIONS: None. FINDINGS: LOWER CHEST: No significant findings. No nodules or infiltrates. LIVER: Benign cysts. No dilated ducts. SPLEEN: Normal size. No focal lesions. PANCREAS: No masses. No significant calcifications. No adjacent inflammation or peripancreatic fluid collections. Pancreatic duct not dilated. GALLBLADDER: No identified stones by CT criteria. No inflammatory changes to suggest cholecystitis. ADRENAL GLANDS: No significant masses or asymmetry. RIGHT KIDNEY AND URETER: Small cyst. No solid masses. No significant calcifications. No hydronep hrosis or hydroureter. LEFT KIDNEY AND URETER: Small upper pole cyst. No solid masses. 7 mm lower pole calculus. No hyd ronephrosis or hydroureter. AORTA AND VESSELS: No aneurysm. No dissection. Renal arteries, SMA, celiac without stenosis. RETROPERITONEUM: No retroperitoneal adenopathy, hemorrhage or masses. BOWEL AND PERITONEAL CAVITY: Sigmoid diverticulosis. No masses or inflammatory changes. No free flui d or peritoneal masses. APPENDIX: Not visualized. PELVIS: Trabeculated urinary bladder wall. No mass identified. ABDOMINAL WALL: No masses. No hernias. BONES: Nothing acute. OTHER: No other significant finding. IMPRESSION: Nonobstructing left renal calculus. Diverticulosis without evidence of diverticulitis. TECHNICAL DOCUMENTATION: JOB ID: [id number] Quality ID # [id number]: Final reports with documentation of one or more dose reduction techniques (e.g., Au tomated exposure control, adjustment of the mA and/or kV according to patient size, use of iterative reconstruction technique) 2010 [employer]- All Rights Reserved Reading location - IP/workstation name: [email or web address]
[2019-11-10] MEDS: INSULIN REG, HUMAN 100 UNIT/ML 3 ML VIAL (PYX) SUBCUT SCH ×2 (16:05→22:34)
[2019-11-10] MEDS: RIVAROXABAN 10 MG TABLET PO SCH (17:00)
[2019-11-10] MEDS: TAMSULOSIN HCL 0.4 MG CAP.SR.24H PO SCH (18:00)
[2019-11-10 20:53] LABS: APPEARANCE,URINE SLIGHTLY-CLOUDY; BILIRUBIN,URINE NEGATIVE (NEGATIVE); COLOR,URINE YELLOW; GLUCOSE, URINE NEGATIVE (NEGATIVE); KETONES,URINE NEGATIVE (NEGATIVE); LEUKOCYTE ESTERASE,URINE LARGE (NEGATIVE); NITRITE,URINE POSITIVE (NEGATIVE); PROTEIN,URINE NEGATIVE (NEGATIVE); URINE SPECIFIC GRAVITY 1.019; UROBILINOGEN,URINE NEGATIVE mg/dL (<2.0)
[2019-11-10] MEDS ORDERED: CEFEPIME 2 GM/D5W RTU 50 ML IV SCH (22:00)
[2019-11-10] MEDS: CITALOPRAM HYDROBROMIDE 20 MG TABLET PO SCH (22:38)
[2019-11-10] MEDS: FAMOTIDINE 20 MG TABLET PO SCH (22:38)
[2019-11-10] MEDS: CEFEPIME HCL 2 GM in DEXTROSE 5%-WATER 50 ML IV SCH (23:20)
--- NOTE | 2019-11-11 00:02 | EKG REPORT ---
SEVERITY:- NORMAL ECG - SINUS RHYTHM : Confirmed by: Jacquelin Salamanca 11-Nov-2019 00:01:54
[2019-11-11 05:41] LABS: ABSOLUTE BASOPHILS # (AUTO) 0.1 10^3/uL (0.0-0.2); ABSOLUTE EOSINOPHILS # (AUTO) 0.1 10^3/uL (0.0-0.6); ABSOLUTE LYMPHOCYTES (AUTO) 0.9 10^3/uL (0.5-4.7); ABSOLUTE MONOCYTES (AUTO) 0.6 10^3/uL (0.1-1.4); ABSOLUTE NEUT (AUTO) 4.9 10^3/uL (1.7-8.2); BASOPHILS % (AUTO) 0.9 % (0-2); EOSINOPHILS % (AUTO) 2.1 % (0-6); HEMATOCRIT 30.4 % (37.9-51.0); HEMOGLOBIN 10.8 g/dL (13.5-17.0); LYMPHOCYTES % (AUTO) 14.1 % (13-45); MEAN CORPUSCULAR HEMOGLOBIN 31.5 pg (27.0-33.4); MEAN CORPUSCULAR HGB CONC 35.5 g/dL (32.0-36.0); MEAN CORPUSCULAR VOLUME 89 fl (80-97); MONOCYTES % (AUTO) 8.7 % (3-13); PLATELET COUNT 347 10^3/uL (150-450); RED BLOOD COUNT 3.43 10^6/uL (4.35-5.55); RED CELL DISTRIBUTION WIDTH 15.2 % (11.5-14.0); SEGMENTED NEUTROPHILS % (AUTO) 74.2 % (42-78); TOTAL CELLS COUNTED % (AUTO) 100 %; WHITE BLOOD COUNT 6.7 10^3/uL (4.0-10.5)
[2019-11-11] MEDS: NORMAL SALINE 1000 ML 1,000 ML IV PRN ×2 (05:42→19:54)
[2019-11-11] MEDS: LEVOTHYROXINE SODIUM 0.075 MG TABLET PO SCH (05:43)
[2019-11-11] MEDS: PANTOPRAZOLE SODIUM 40 MG TABLET.DR PO SCH (05:43)
[2019-11-11 05:56] LABS: ALBUMIN 3.5 g/dL (3.5-5.0); ALKALINE PHOSPHATASE 61 U/L (38-126); ANION GAP 10 (5-19); ASPARTATE AMINO TRANSFERASE 15 U/L (17-59); BILIRUBIN,TOTAL 0.4 mg/dL (0.2-1.3); BLOOD UREA NITROGEN 16 mg/dL (7-20); CALCIUM 8.7 mg/dL (8.4-10.2); CARBON DIOXIDE 22 mmol/L (22-30); CHLORIDE 100 mmol/L (98-107); GLUCOSE 111 mg/dL (75-110); POTASSIUM 4.7 mmol/L (3.6-5.0); TOTAL PROTEIN 6.1 g/dL (6.3-8.2)
[2019-11-11] MEDS: INSULIN REG, HUMAN 100 UNIT/ML 3 ML VIAL (PYX) SUBCUT SCH ×4 (08:46→21:31)
[2019-11-11] MEDS: CEFEPIME HCL 2 GM in DEXTROSE 5%-WATER 50 ML IV SCH ×2 (09:15→21:17)
[2019-11-11] MEDS: FAMOTIDINE 20 MG TABLET PO SCH ×2 (09:20→21:17)
[2019-11-11] MEDS: VERAPAMIL HCL 240 MG TABLET.SA PO SCH (09:20)
[2019-11-11] MEDS: HYDROCHLOROTHIAZIDE 25 MG TABLET PO SCH (09:21)
[2019-11-11] MEDS: METOPROLOL SUCCINATE 25 MG TAB.SR.24H PO SCH (09:21)
[2019-11-11] MEDS: LUBIPROSTONE 24 MCG CAPSULE PO SCH (09:21)
[2019-11-11] MEDS: LISINOPRIL 10 MG TABLET PO SCH (09:22)
--- NOTE | 2019-11-11 14:05 | PDOC PROGRESS REPORT ---
Subjective Progress Note for:: 11/11/19 Subjective:: Patient readmitted with a recurrent UTI. It appears he has been treated several times for Pseudomonas UTI and most recently within the last month when he was discharged on 3 weeks of IV therapy. Urine culture, blood cultures are currently pending. Apparently plan is for a possible PICC line to be inserted Reason For Visit: RECURRET UTI Physical Exam Vital Signs: Temp Pulse Resp BP Pulse Ox 97.7 F 81 16 132/68 H 98 11/11/19 07:52 11/11/19 07:52 11/11/19 07:52 11/11/19 07:52 11/11/19 07:52 Intake & Output 11/10/19 11/11/19 11/12/19 06:59 06:59 06:59 Intake Total 1740 310 Balance 1740 310 Weight 95.8 kg General appearance: PRESENT: no acute distress, well-developed, well-nourished Head exam: PRESENT: atraumatic, normocephalic Eye exam: PRESENT: conjunctiva pink, EOMI, PERRLA. ABSENT: scleral icterus Ear exam: PRESENT: normal external ear exam Mouth exam: PRESENT: moist, tongue midline Neck exam: ABSENT: carotid bruit, JVD, lymphadenopathy, thyromegaly Respiratory exam: PRESENT: clear to auscultation sonia. ABSENT: rales, rhonchi, wheezes Cardiovascular exam: PRESENT: RRR. ABSENT: diastolic murmur, rubs, systolic murmur Pulses: PRESENT: normal dorsalis pedis pul Vascular exam: PRESENT: normal capillary refill GI/Abdominal exam: PRESENT: normal bowel sounds, soft. ABSENT: distended, guarding, mass, organolmegaly, rebound, tenderness Rectal exam: PRESENT: deferred Extremities exam: PRESENT: full ROM. ABSENT: calf tenderness, clubbing, pedal edema Neurological exam: PRESENT: alert, awake, oriented to person, oriented to place, oriented to time, oriented to situation, CN II-XII grossly intact. ABSENT: motor sensory deficit Psychiatric exam: PRESENT: appropriate affect, normal mood. ABSENT: homicidal ideation, suicidal ideation Skin exam: PRESENT: dry, intact, warm. ABSENT: cyanosis, rash Results Laboratory Results: 11/11/19 04:56 11/11/19 04:56 11/10/19 11/11/19 11/11/19 20:23 04:56 04:56 WBC 6.7 RBC 3.43 L Hgb 10.8 L Hct 30.4 L MCV 89 MCH 31.5 MCHC 35.5 RDW 15.2 H Plt Count 347 Seg Neutrophils % 74.2 Sodium 131.7 L Potassium 4.7 Chloride 100 Carbon Dioxide 22 Anion Gap 10 BUN 16 Creatinine 0.98 Est GFR ( Amer) > 60 Glucose 111 H Calcium 8.7 Magnesium 1.8 Total Bilirubin 0.4 AST 15 L Alkaline Phosphatase 61 Total Protein 6.1 L Albumin 3.5 Urine Color YELLOW Urine Appearance SLIGHTLY-CLOUDY Urine pH 7.0 Ur Specific [place] 1.019 Urine Protein NEGATIVE Urine Glucose (UA) NEGATIVE Urine Ketones NEGATIVE Urine Blood SMALL H Urine Nitrite POSITIVE H Ur Leukocyte Esterase LARGE H Urine WBC (Auto) 154 Urine RBC (Auto) 5 11/10/19 11/11/19 12:51 04:56 Troponin I 0.012 NT-Pro-B Natriuret Pep 77 Impressions: Abdomen/Pelvis CT 11/10/19 00:00 IMPRESSION: Nonobstructing left renal calculus. Diverticulosis without evidence of diverticulitis. Assessment and Plan - Diagnosis (1) Diabetes mellitus type 2 in nonobese Is this a current diagnosis for this admission?: No Plan: 11/10/2019-patient has history of type 2 diabetes mellitus on metformin at home to hold the medication at this time and started insulin sliding scale before meals and at bedtime. Continue with sliding scale insulin (2) Hypertension Qualifiers: Hypertension type: essential hypertension Qualified Code(s): I10 - Essentia l (primary) hypertension Is this a current diagnosis for this admission?: No Plan: 11/10/19-patient has history of chronic essential hypertension plan to restart lisinopril/hydrochlorothiazide during the hospital stay. Continue with same regimen (4) Paroxysmal chronic atrial fib Is this a current diagnosis for this admission?: No Plan: 11/10/2019-patient has history of paroxysmal atrial fibrillation on examination in sinus rhythm. Plan is to continue Xarelto during the hospital stay. (5) Pseudomonas aeruginosa infection Is this a current diagnosis for this admission?: Yes Plan: Recurrent UTI (6) UTI (urinary tract infection) Qualifiers: Is this a current diagnosis for this admission?: Yes Plan: 11/10/2019-patient is going to be admitted to medical floor for recurrent UTI and a recent urine culture is positive for Pseudomonas. Started on IV cefepime. Blood cultures urine cultures are requested. Once the blood cultures are negative plan to arrange for a PICC line. CT abdomen pelvis with IV contrast was requested. GI prophylaxis initiated patient is already on Xarelto. November 10 have requested an infectious disease consult. Patient has had recurrent UTIs. He has been previously treated. At this time I think cheng bspecialty consultation is in order
--- NOTE | 2019-11-11 15:59 | Progress Note ---
Provider Note Provider Note: [facility] ID Telephone Advice Consultation Chart reviewed. Patient is a 74-year-old man with hypertension, DM, BPH, atrial fibrillation who has been admitted to the hospital multiple times due to recurrent UTIs. His most recent admission was in September were he had bacteremia with Pseudomonas aeruginosa from urinary source. He was treated with cefepime x 3 weeks at that time through a PICC line. He completed therapy few days ago. He is now admitted with urinary symptoms. UA was positive and urine culture again growing Pseudomonas aeruginosa. CT scan on 11/09 didn't show pyelonephritis, but he does have a left renal calculus. Blood cultures are in process. Patient is on cefepime. ID consulted for recommendations. PMH: DM BPH HTN Atrial fibrillation Hypothyroidism Allergies: acetaminophen [From Tylenol] Adverse Reaction (Verified 08/29/19 10:02) steroids Adverse Reaction (Intermediate, Uncoded 08/29/19 10:02) elevated bp Medications: Levothyroxine Sodium 50 mcg PO Q6AM 08/29/19 Metformin HCl 500 mg PO DAILY 08/29/19 Pravastatin Sodium [Pravachol] 20 mg PO QHS 08/29/19 Finasteride [Proscar 5 mg Tablet] 5 mg PO DAILY 10/06/19 Lisinopril/Hydrochlorothiazide [Lisinopril-Hctz 20-12.5 mg Tab] 1 each PO DAILY 10/06/19 Tamsulosin HCl [Flomax 0.4 mg Cap.sr] 0.8 mg PO QHS 10/06/19 Verapamil HCl [Verapamil ER] 240 mg PO QAM 10/06/19 Vital Signs: Temp Pulse Resp BP Pulse Ox 97.2 F 76 18 113/56 L 99 11/11/19 11:28 11/11/19 11:28 11/11/19 11:28 11/11/19 11:28 11/11/19 11:28 Intake & Output 11/10/19 11/11/19 11/12/19 06:59 06:59 06:59 Intake Total 1740 310 Balance 1740 310 Weight 95.8 kg Weight/Height Weight 95.8 kg Height 5 ft 11 in Laboratories: 11/11/19 04:56 11/11/19 04:56 MCV 89 fl (80-97) 11/11/19 04:56 MCH 31.5 pg (27.0-33.4) 11/11/19 04:56 MCHC 35.5 g/dL (32.0-36.0) 11/11/19 04:56 RDW 15.2 % (11.5-14.0) H 11/11/19 04:56 Seg Neutrophils % 74.2 % (42-78) 11/11/19 04:56 Chloride 100 mmol/L (98-107) 11/11/19 04:56 Carbon Dioxide 22 mmol/L (22-30) 11/11/19 04:56 Anion Gap 10 (5-19) 11/11/19 04:56 Est GFR ( Amer) > 60 (>60) 11/11/19 04:56 Glucose 111 mg/dL (75-110) H 11/11/19 04:56 Calcium 8.7 mg/dL (8.4-10.2) 11/11/19 04:56 Magnesium 1.8 mg/dL (1.6-2.3) 11/11/19 04:56 Total Bilirubin 0.4 mg/dL (0.2-1.3) 11/11/19 04:56 AST 15 U/L (17-59) L 11/11/19 04:56 Alkaline Phosphatase 61 U/L (38-126) 11/11/19 04:56 Total Protein 6.1 g/dL (6.3-8.2) L 11/11/19 04:56 Albumin 3.5 g/dL (3.5-5.0) 11/11/19 04:56 Urine Color YELLOW 11/10/19 20:23 Urine Appearance SLIGHTLY-CLOUDY 11/10/19 20:23 Urine pH 7.0 (5.0-9.0) 11/10/19 20:23 Ur Specific [place] 1.019 11/10/19 20:23 Urine Protein NEGATIVE mg/dL (NEGATIVE) 11/10/19 20:23 Urine Glucose (UA) NEGATIVE mg/dL (NEGATIVE) 11/10/19 20:23 Urine Ketones NEGATIVE mg/dL (NEGATIVE) 11/10/19 20:23 Urine Blood SMALL (NEGATIVE) H 11/10/19 20:23 Urine Nitrite POSITIVE (NEGATIVE) H 11/10/19 20:23 Ur Leukocyte Esterase LARGE (NEGATIVE) H 11/10/19 20:23 Urine WBC (Auto) 154 /HPF 11/10/19 20:23 Urine RBC (Auto) 5 /HPF 11/10/19 20:23 11/10/19 11/11/19 12:51 04:56 Troponin I 0.012 NT-Pro-B Natriuret Pep 77 Microbiology: Blood culture 11/09 In process Urine Culture: 11/09 In process 11/07 Pseudomonas aeruginosa (Resistant to cipro) Radiology: Abdomen/Pelvis CT 11/10/19 00:00 IMPRESSION: Nonobstructing left renal calculus. Diverticulosis without evidence of diverticulitis. Assessment and Recommendations: Case evaluated due to history of recurrent UTIs, specifically due to Pseudomonas aeruginosa. He was bacteremic when he had UTI last time 1 month ago. He is afebrile and HD stable now. No leukocytosis. Renal function stable. UA positive and urine culture again with Pseudomonas aeruginosa. CT scan didn't show pyelonephritis, but there is a renal calculus on the left side. Blood cultures still in process. I believe that patient's recurrent UTIs may be related to this renal calculus that's probably the nidus for this bacterial infection. He also has BPH, may be contributing to perpetuate this infection as well. He will need urology evaluation at some point (it can be as outpatient) to address this matter. Cefepime is adequate for now, duration of therapy will depend on blood cultures. The bacteria is resistant to cipro, therefore he will have to complete therapy with IV antibiotics. Extended duration beyond 2 weeks is not recommended as there is risk of becoming resistant to antibiotics without addressing the nephrolithiasis. Please call if questions or updates. Zhane Ashraf MD [facility] ID [phone]
[2019-11-11] MEDS: RIVAROXABAN 10 MG TABLET PO SCH (18:00)
[2019-11-11] MEDS: TAMSULOSIN HCL 0.4 MG CAP.SR.24H PO SCH (18:00)
[2019-11-11] MEDS: CITALOPRAM HYDROBROMIDE 20 MG TABLET PO SCH (21:17)
[2019-11-12] MEDS: LEVOTHYROXINE SODIUM 0.075 MG TABLET PO SCH (05:13)
[2019-11-12] MEDS: PANTOPRAZOLE SODIUM 40 MG TABLET.DR PO SCH (05:13)
[2019-11-12] MEDS: LISINOPRIL 10 MG TABLET PO SCH (10:12)
[2019-11-12] MEDS: VERAPAMIL HCL 240 MG TABLET.SA PO SCH (10:12)
[2019-11-12] MEDS: FAMOTIDINE 20 MG TABLET PO SCH ×2 (10:12→22:31)
[2019-11-12] MEDS: LUBIPROSTONE 24 MCG CAPSULE PO SCH (10:13)
[2019-11-12] MEDS: METOPROLOL SUCCINATE 25 MG TAB.SR.24H PO SCH (10:13)
[2019-11-12] MEDS: INSULIN REG, HUMAN 100 UNIT/ML 3 ML VIAL (PYX) SUBCUT SCH ×4 (10:14→23:25)
[2019-11-12] MEDS: CEFEPIME HCL 2 GM in DEXTROSE 5%-WATER 50 ML IV SCH ×2 (10:21→22:31)
[2019-11-12] MEDS: HYDROCHLOROTHIAZIDE 25 MG TABLET PO SCH (10:22)
--- NOTE | 2019-11-12 12:36 | PDOC PROGRESS REPORT ---
Subjective Progress Note for:: 11/12/19 Subjective:: Patient readmitted with a recurrent UTI. It appears he has been treated several times for Pseudomonas UTI and most recently within the last month when he was discharged on 3 weeks of IV therapy. Urine culture, blood cultures are currently pending. Apparently plan is for a possible PICC line to be inserted Reason For Visit: RECURRET UTI Physical Exam Vital Signs: Temp Pulse Resp BP Pulse Ox 97.6 F 77 19 106/76 100 11/12/19 10:00 11/12/19 10:00 11/12/19 10:00 11/12/19 10:00 11/12/19 10:00 Intake & Output 11/11/19 11/12/19 11/13/19 06:59 06:59 06:59 Intake Total 1740 3104 Output Total 100 Balance 1740 3004 Weight 95.8 kg General appearance: PRESENT: no acute distress Head exam: PRESENT: atraumatic Eye exam: PRESENT: other - L eye erythema, Neck exam: ABSENT: JVD Respiratory exam: PRESENT: clear to auscultation sonia Cardiovascular exam: PRESENT: RRR, +S1, +S2 Rectal exam: PRESENT: deferred Gentrourinary exam: ABSENT: urethral discharge, indwelling catheter Musculoskeletal exam: PRESENT: ambulatory Neurological exam: PRESENT: alert, awake, oriented to person, oriented to place, oriented to time, oriented to situation Results Laboratory Results: 11/11/19 04:56 11/11/19 04:56 11/10/19 11/11/19 12:51 04:56 Troponin I 0.012 NT-Pro-B Natriuret Pep 77 Impressions: Abdomen/Pelvis CT 11/10/19 00:00 IMPRESSION: Nonobstructing left renal calculus. Diverticulosis without evidence of diverticulitis. Assessment and Plan - Diagnosis (1) Diabetes mellitus type 2 in nonobese Is this a current diagnosis for this admission?: Yes Plan: 11/10/2019-patient has history of type 2 diabetes mellitus on metformin at home to hold the medication at this time and started insulin sliding scale before meals and at bedtime. Continue with sliding scale insulin (2) Hypertension Qualifiers: Hypertension type: essential hypertension Qualified Code(s): I10 - Essential (primary) hypertension Is this a current diagnosis for this admission?: Yes Plan: 11/10/19-patient has history of chronic essential hypertension plan to restart lisinopril/hydrochlorothiazide during the hospital stay. Continue with same regimen (3) PTSD (post-traumatic stress disorder) Is this a current diagnosis for this admission?: Yes (4) Paroxysmal chronic atrial fib Is this a current diagnosis for this admission?: Yes Plan: 11/10/2019-patient has history of paroxysmal atrial fibrillation on examination in sinus rhythm. Plan is to continue Xarelto during the hospital stay. (5) Pseudomonas aeruginosa infection Is this a current diagnosis for this admission?: Yes Plan: Recurrent UTI, please see discussions below (6) UTI (urinary tract infection) Qualifiers: Is this a current diagnosis for this admission?: Yes - Plan Summary Summary: Appreciate infectious disease input. Patient has a nonobstructing left renal calculus which is chronic. He apparently had a stone in the right that was extracted sometime ago. I do concur with infectious disease that this is probably the nidus of infection. Patient was admitted and treated for Pseudomonas UTI in August and September and this will be his third admission for the same. He was treated with cefepime 1 g twice daily for 3 weeks and he just completed his antibiotics about a week ago. Repeat urine culture done on November 09 is pending and blood cultures are negative. He is back on the cefepime which Dr. Ashraf concurs with. Suggestion is for urology evaluation possibly as outpatient. As his blood cultures are negative I presume a 2-week treatment course should be adequate pending evaluation by urology. At this time I plan is to hopefully get a PICC line in by Thursday and discussed with Dr. Reis on the need to to refer this gentleman to urology [facility] so that he can have cystoscopy and possible stone retrieval otherwise he will keep having recurrent Pseudomonas infection - Time Time Spent with patient: 25-34 minutes - Inpatient Certification Based on my medical assessment, after consideration of the patient's comorbidities, presenting symptoms, or acuity I expect that the services needed warrant INPATIENT care.: Yes Medical Necessity: Risk of Complication if Not Cared For in Hospital
[2019-11-12] MEDS: NORMAL SALINE 1000 ML 1,000 ML IV PRN (13:49)
[2019-11-12] MEDS: TAMSULOSIN HCL 0.4 MG CAP.SR.24H PO SCH (18:23)
[2019-11-12] MEDS: RIVAROXABAN 10 MG TABLET PO SCH (18:23)
[2019-11-12] MEDS: CITALOPRAM HYDROBROMIDE 20 MG TABLET PO SCH (22:31)
[2019-11-13] MEDS: PANTOPRAZOLE SODIUM 40 MG TABLET.DR PO SCH (05:01)
[2019-11-13] MEDS: LEVOTHYROXINE SODIUM 0.075 MG TABLET PO SCH (05:01)
[2019-11-13] MEDS: INSULIN REG, HUMAN 100 UNIT/ML 3 ML VIAL (PYX) SUBCUT SCH ×4 (07:57→21:59)
[2019-11-13] MEDS: LISINOPRIL 10 MG TABLET PO SCH (10:43)
[2019-11-13] MEDS: METOPROLOL SUCCINATE 25 MG TAB.SR.24H PO SCH (10:43)
[2019-11-13] MEDS: VERAPAMIL HCL 240 MG TABLET.SA PO SCH (10:44)
[2019-11-13] MEDS: FAMOTIDINE 20 MG TABLET PO SCH ×2 (10:44→21:26)
[2019-11-13] MEDS: LUBIPROSTONE 24 MCG CAPSULE PO SCH (10:44)
[2019-11-13] MEDS: HYDROCHLOROTHIAZIDE 25 MG TABLET PO SCH (10:44)
[2019-11-13] MEDS: CEFEPIME HCL 2 GM in DEXTROSE 5%-WATER 50 ML IV SCH ×2 (10:44→21:26)
--- NOTE | 2019-11-13 12:38 | PDOC PROGRESS REPORT ---
Subjective Progress Note for:: 11/13/19 Subjective:: Patient readmitted with a recurrent UTI. It appears he has been treated several times for Pseudomonas UTI and most recently within the last month when he was discharged on 3 weeks of IV therapy. Urine culture, blood cultures are currently pending. Apparently plan is for a possible PICC line to be inserted Reason For Visit: COMPLICATED UTI Physical Exam Vital Signs: Temp Pulse Resp BP Pulse Ox 98.8 F 69 17 123/61 100 11/13/19 07:17 11/13/19 07:17 11/13/19 07:17 11/13/19 07:17 11/13/19 07:17 Intake & Output 11/12/19 11/13/19 11/14/19 06:59 06:59 06:59 Intake Total 3104 2158 50 Output Total 100 Balance 3004 2158 50 Weight 99 kg General appearance: PRESENT: no acute distress Head exam: PRESENT: atraumatic, normocephalic Eye exam: PRESENT: other - L eye erythema. ABSENT: scleral icterus Ear exam: PRESENT: normal external ear exam Mouth exam: PRESENT: moist, tongue midline Neck exam: ABSENT: carotid bruit, JVD, lymphadenopathy, thyromegaly Respiratory exam: PRESENT: clear to auscultation sonia. ABSENT: rales, rhonchi, wheezes Cardiovascular exam: PRESENT: RRR. ABSENT: diastolic murmur, rubs, systolic murmur Pulses: PRESENT: normal dorsalis pedis pul Vascular exam: PRESENT: normal capillary refill GI/Abdominal exam: PRESENT: normal bowel sounds, soft. ABSENT: distended, guarding, mass, organolmegaly, rebound, tenderness Rectal exam: PRESENT: deferred Extremities exam: PRESENT: full ROM. ABSENT: calf tenderness, clubbing, pedal edema Neurological exam: PRESENT: alert, awake, oriented to person, oriented to place, oriented to time, oriented to situation, CN II-XII grossly intact. ABSENT: motor sensory deficit Psychiatric exam: PRESENT: appropriate affect, normal mood. ABSENT: homicidal ideation, suicidal ideation Skin exam: PRESENT: dry, intact, warm. ABSENT: cyanosis, rash Results Laboratory Results: 11/11/19 04:56 11/11/19 04:56 11/10/19 11/11/19 12:51 04:56 Troponin I 0.012 NT-Pro-B Natriuret Pep 77 Impressions: Abdomen/Pelvis CT 11/10/19 00:00 IMPRESSION: Nonobstructing left renal calculus. Diverticulosis without evidence of diverticulitis. Assessment and Plan - Diagnosis (1) Diabetes mellitus type 2 in nonobese Is this a current diagnosis for this admission?: Yes (2) Hypertension Qualifiers: Hypertension type: essential hypertension Qualified Code(s): I10 - Essential (primary) hypertension Is this a current diagnosis for this admission?: Yes (3) PTSD (post-traumatic stress disorder) Is this a current diagnosis for this admission?: Yes (4) Paroxysmal chronic atrial fib Is this a current diagnosis for this admission?: Yes (5) Pseudomonas aeruginosa infection Is this a current diagnosis for this admission?: Yes (6) UTI (urinary tract infection) Qualifiers: Is this a current diagnosis for this admission?: Yes - Plan Summary Summary: Appreciate infectious disease input. Patient has a nonobstructing left renal calculus which is chronic. He apparently had a stone in the right that was extracted sometime ago. I do concur with infectious disease that this is probably the nidus of infection. Patient was admitted and treated for Pseudomonas UTI in August and September and this will be his third admission for the same. He was treated with cefepime 1 g twice daily for 3 weeks and he just completed his antibiotics about a week ago. Repeat urine culture done on November 09 is pending and blood cultures are negative. He is back on the cefepime which Dr. Ashraf concurs with. Suggestion is for urology evaluation possibly as outpatient. As his blood cultures are negative I presume a 2-week treatment course should be adequate pending evaluation by urology. At this time I plan is to hopefully get a PICC line in by Thursday and discussed with Dr. Reis on the need to to refer this gentleman to urology [facility] so that he can have cystoscopy and possible stone retrieval otherwise he will keep having recurrent Pseudomonas infection 11/12 Plan remains same PICC Line in am Contact Dr. West for outpatient referral to urology DC once home IV antibiotics arranged
[2019-11-13] MEDS: TAMSULOSIN HCL 0.4 MG CAP.SR.24H PO SCH (17:04)
[2019-11-13] MEDS: RIVAROXABAN 10 MG TABLET PO SCH (17:04)
[2019-11-13] MEDS: CITALOPRAM HYDROBROMIDE 20 MG TABLET PO SCH (21:26)
[2019-11-13] MEDS: NORMAL SALINE 1000 ML 1,000 ML IV PRN (23:54)
[2019-11-14] MEDS: PANTOPRAZOLE SODIUM 40 MG TABLET.DR PO SCH (05:02)
[2019-11-14] MEDS: LEVOTHYROXINE SODIUM 0.075 MG TABLET PO SCH (05:02)
[2019-11-14 05:38] LABS: ABSOLUTE BASOPHILS # (AUTO) 0.1 10^3/uL (0.0-0.2); ABSOLUTE EOSINOPHILS # (AUTO) 0.2 10^3/uL (0.0-0.6); ABSOLUTE LYMPHOCYTES (AUTO) 1.3 10^3/uL (0.5-4.7); ABSOLUTE MONOCYTES (AUTO) 0.5 10^3/uL (0.1-1.4); ABSOLUTE NEUT (AUTO) 3.6 10^3/uL (1.7-8.2); BASOPHILS % (AUTO) 1.2 % (0-2); EOSINOPHILS % (AUTO) 2.7 % (0-6); HEMATOCRIT 30.5 % (37.9-51.0); HEMOGLOBIN 10.8 g/dL (13.5-17.0); LYMPHOCYTES % (AUTO) 23.5 % (13-45); MEAN CORPUSCULAR HEMOGLOBIN 31.6 pg (27.0-33.4); MEAN CORPUSCULAR HGB CONC 35.4 g/dL (32.0-36.0); MEAN CORPUSCULAR VOLUME 89 fl (80-97); MONOCYTES % (AUTO) 9.5 % (3-13); PLATELET COUNT 312 10^3/uL (150-450); RED BLOOD COUNT 3.42 10^6/uL (4.35-5.55); RED CELL DISTRIBUTION WIDTH 15.3 % (11.5-14.0); SEGMENTED NEUTROPHILS % (AUTO) 63.1 % (42-78); TOTAL CELLS COUNTED % (AUTO) 100 %; WHITE BLOOD COUNT 5.7 10^3/uL (4.0-10.5)
[2019-11-14 05:54] LABS: ANION GAP 7 (5-19); BLOOD UREA NITROGEN 15 mg/dL (7-20); CALCIUM 8.7 mg/dL (8.4-10.2); CARBON DIOXIDE 25 mmol/L (22-30); CHLORIDE 97 mmol/L (98-107); GLUCOSE 96 mg/dL (75-110); POTASSIUM 4.4 mmol/L (3.6-5.0)
[2019-11-14] MEDS: INSULIN REG, HUMAN 100 UNIT/ML 3 ML VIAL (PYX) SUBCUT SCH ×3 (07:33→17:06)
[2019-11-14] MEDS: CEFEPIME HCL 2 GM in DEXTROSE 5%-WATER 50 ML IV SCH (10:00)
--- NOTE | 2019-11-14 10:16 | RADIOLOGY REPORT (SQ) ---
EXAM DESCRIPTION: PICC INSERTION IMAGES COMPLETED DATE/TIME: 11/14/2019 10:04 am REASON FOR STUDY: IVC Access urinary tract infection. Need IV access for long-term antibiotics COMPARISON: None. FLUOROSCOPY TIME: 48 seconds of fluoroscopy was used. 2 images saved to PACS. TECHNIQUE: Fluoroscopic and ultrasound guided PICC placement. LIMITATIONS: None. PROCEDURE: After written consent and assessment were obtained, the patient was brought into the fluo roscopy room and placed supine on the table. Ultrasound evaluation of potential access sites were per formed. After successfully identifying a patent left basilic vein, the left arm was prepped and drape d in a sterile fashion along with the ultrasound probe. The entry site was anesthetized with 1% lidoc chioma. A 21 gauge 7 cm needle was advanced through the skin and into the basilic vein under live ultra sound guidance. An ultrasound image was saved to PACS confirming access site. A .018 guide wire was then inserted through the needle and into the venous system. The needle was then removed and an 11 b lade scalpel was used to make a 1cm skin incision. A 5 fr peel-away sheath was advanced over the wir e and into the venous system. A measurement was then made using the existing wire and live fluoroscop ic guidance. The wire was then removed and trimmed. The PICC was advanced through the peel-away sheat h and into the venous system. The peel-away sheath was removed and the catheter was adhered to the pa tients arm with a stat lock. The catheter was then aspirated and flushed and a sterile bandage was pl aced over the access site. A fluoroscopic spot image was saved to PACS confirming the catheter tip w ithin the superior vena cava. IMPRESSION: SUCCESSFUL PLACEMENT OF A 5 FR DUAL LUMEN 43 CM PICC IN THE LEFT BASILIC VEIN. COMMENT: Patient medication list reviewed: Yes- Quality ID# 130:Eligible professional attests to doc umenting in the medical record they obtained, updated, or reviewed the patient's current medications. . Quality ID 145: Final reports for procedures using fluoroscopy that document radiation exposure jan farhat, or exposure time and number of fluorographic images (if radiation exposure indices are not avail able) Quality ID #76: The patient was prepped and draped using maximum sterile barrier technique including cap, mask, sterile gown, sterile gloves, a large sterile sheet, hand hygiene, and 2% Chlorhexidine fo r cutaneous antisepsis. When ultrasound is used, sterile ultrasound techniques are followed requiring sterile gel and sterile probes. TECHNICAL DOCUMENTATION: JOB ID: [id number] 2010 [employer]- All Rights Reserved rev-12/04 Reading location - IP/workstation name: [id number]
[2019-11-14] MEDS ORDERED: NORMAL SALINE 10 ML SDV (AFTER EACH USE) IV PRN (10:30)
[2019-11-14] MEDS: NORMAL SALINE 1000 ML 1,000 ML IV PRN (10:42)
[2019-11-14] MEDS: LUBIPROSTONE 24 MCG CAPSULE PO SCH (10:43)
[2019-11-14] MEDS: LISINOPRIL 10 MG TABLET PO SCH (10:44)
[2019-11-14] MEDS: VERAPAMIL HCL 240 MG TABLET.SA PO SCH (10:45)
[2019-11-14] MEDS: HYDROCHLOROTHIAZIDE 25 MG TABLET PO SCH (10:45)
[2019-11-14] MEDS: METOPROLOL SUCCINATE 25 MG TAB.SR.24H PO SCH (10:47)
[2019-11-14] MEDS: FAMOTIDINE 20 MG TABLET PO SCH (10:47)
[2019-11-14 17:26] VITALS: BP 106/76
[2019-11-14] MEDS: RIVAROXABAN 10 MG TABLET PO SCH (17:28)
[2019-11-14] MEDS: TAMSULOSIN HCL 0.4 MG CAP.SR.24H PO SCH (17:29)
--- NOTE | 2019-11-14 17:44 | PDOC DISCHARGE SUMMARY ---
Impression - Admit/DC Date/PCP Admission Date/Primary Care Provider: 11/10/19 11:55 SILAS BRENNAN MD Discharge Date: 11/14/19 - Discharge Diagnosis (1) Diabetes mellitus type 2 in nonobese Is this a current diagnosis for this admission?: Yes (2) Hypertension Is this a current diagnosis for this admission?: Yes (3) PTSD (post-traumatic stress disorder) Is this a current diagnosis for this admission?: Yes (4) Paroxysmal chronic atrial fib Is this a current diagnosis for this admission?: Yes (5) Pseudomonas aeruginosa infection Is this a current diagnosis for this admission?: Yes (6) UTI (urinary tract infection) Is this a current diagnosis for this admission?: Yes (7) Nephrolithiasis Is this a current diagnosis for this admission?: Yes - Assessment Summary: Appreciate infectious disease input. Patient has a nonobstructing left renal calculus which is chronic. He apparently had a stone in the right that was extracted sometime ago. I do concur with infectious disease that this is probably the nidus of infection. Patient was admitted and treated for Pseudomonas UTI in August and September and this will be his third admission for the same. He was treated with cefepime 1 g twice daily for 3 weeks and he just completed his antibiotics about a week ago. Repeat urine culture done on November 09 is pending and blood cultures are negative. He is back on the cefepime which Dr. Ashraf concurs with. Suggestion is for urology evaluation possibly as outpatient. As his blood cultures are negative I presume a 2-week treatment course should be adequate pending evaluation by urology. At this time I plan is to hopefully get a PICC line in by Thursday and discussed with Dr. Brennan on the need to to refer this gentleman to urology [facility] so that he can have cystoscopy and possible stone retrieval otherwise he will keep having recurrent Pseudomonas infection - Additional Information Resuscitation Status: Full Code Discharge Diet: As Tolerated Discharge Activity: Activity As Tolerated, Balance Activity w/Rest, No Lifting Over 10 Pounds, No Lifting/Push/Pulling Referrals: SILAS BRENNAN MD [Primary Care Provider] - (Please refer to Urology for further management) Prescriptions: Cefepime 2 gm/D5w RTU [Maxipime RTU 2 gm-D5w 50 ml Premix Bag] 2 gm IV Q12 #20 rtupb Home Medications: Levothyroxine Sodium 50 mcg PO Q6AM 08/29/19 Metformin HCl 500 mg PO DAILY 08/29/19 Pravastatin Sodium [Pravachol] 20 mg PO QHS 08/29/19 Finasteride [Proscar 5 mg Tablet] 5 mg PO DAILY 10/06/19 Lisinopril/Hydrochlorothiazide [Lisinopril-Hctz 20-12.5 mg Tab] 1 each PO DAILY 10/06/19 Tamsulosin HCl [Flomax 0.4 mg Cap.sr] 0.8 mg PO QHS 10/06/19 Verapamil HCl [Verapamil ER] 240 mg PO QAM 10/06/19 Rivaroxaban [Xarelto 10 mg Tablet] 20 mg PO WSUPPER tablet 10/08/19 Cefepime 2 gm/D5w RTU [Maxipime RTU 2 gm-D5w 50 ml Premix Bag] 2 gm IV Q12 #20 rtupb 11/14/19 Citalopram Hydrobromide [Celexa 20 mg Tablet] 20 mg PO QHS tablet 11/14/19 Hydrochlorothiazide [Hydrodiuril 25 mg Tablet] 25 mg PO DAILY tablet 11/14/19 History of Present Illiness History of Present Illness: CESAR ARCINIEGA JR is a 74 year old male Presents emergency room with recurrent complaints of a urinary tract infection sent by his primary care physician. Please see admitting history and physical for full details Hospital Course Hospital Course: Patient has had recurrent bouts of complicated urinary tract infection secondary to Pseudomonas. He just apparently completed a 3-week course of cefepime for UTIs secondary to Pseudomonas and presented again with positive urine culture for same. Patient was started on cefepime. Infectious disease consultation was obtained. He was suggested to continue cefepime for 2 weeks. Patient however does have a known left nephrolithiasis. It was suggested that this may be his source of seeding with a recurrent Pseudomonas infection. It is imperative that patient follows up with urology so that this can be taken care of to prevent re- infections. I discussed with Dr. Brennan the need to refer this patient to urology and he will follow-up as outpatient to ensure this is done. Physical Exam Vital Signs: Temp Pulse Resp BP Pulse Ox 98.1 F 57 L 16 106/76 100 11/14/19 17:24 11/14/19 17:24 11/14/19 17:24 11/14/19 17:24 11/14/19 17:24 Intake & Output 11/13/19 11/14/19 11/15/19 06:59 06:59 06:59 Intake Total 3158 1650 1490 Balance 3158 1650 1490 Weight 99 kg 96.8 kg General appearance: PRESENT: no acute distress, well-nourished Head exam: PRESENT: atraumatic, normocephalic Eye exam: PRESENT: conjunctiva pink, EOMI, PERRLA. ABSENT: scleral icterus Mouth exam: PRESENT: moist, tongue midline Neck exam: ABSENT: carotid bruit, JVD, lymphadenopathy, thyromegaly Respiratory exam: PRESENT: clear to auscultation sonia. ABSENT: rales, rhonchi, wheezes Cardiovascular exam: PRESENT: RRR. ABSENT: diastolic murmur, rubs, systolic murmur Pulses: PRESENT: normal dorsalis pedis pul Vascular exam: PRESENT: normal capillary refill GI/Abdominal exam: PRESENT: normal bowel sounds, soft. ABSENT: distended, guarding, mass, organolmegaly, rebound, tenderness Rectal exam: PRESENT: deferred Extremities exam: PRESENT: full ROM. ABSENT: calf tenderness, clubbing, pedal edema Neurological exam: PRESENT: alert, awake, oriented to person, oriented to place, oriented to time, oriented to situation. ABSENT: motor sensory deficit Psychiatric exam: PRESENT: appropriate affect, normal mood. ABSENT: homicidal ideation, suicidal ideation Skin exam: PRESENT: dry, warm, other - Sacral decubitus present on admission. ABSENT: cyanosis, rash Results Laboratory Results: WBC 5.7 10^3/uL (4.0-10.5) 11/14/19 05:00 RBC 3.42 10^6/uL (4.35-5.55) L 11/14/19 05:00 Hgb 10.8 g/dL (13.5-17.0) L 11/14/19 05:00 Hct 30.5 % (37.9-51.0) L 11/14/19 05:00 MCV 89 fl (80-97) 11/14/19 05:00 MCH 31.6 pg (27.0-33.4) 11/14/19 05:00 MCHC 35.4 g/dL (32.0-36.0) 11/14/19 05:00 RDW 15.3 % (11.5-14.0) H 11/14/19 05:00 Plt Count 312 10^3/uL (150-450) 11/14/19 05:00 Lymph % (Auto) 23.5 % (13-45) 11/14/19 05:00 [place] % (Auto) 9.5 % (3-13) 11/14/19 05:00 Eos % (Auto) 2.7 % (0-6) 11/14/19 05:00 Baso % (Auto) 1.2 % (0-2) 11/14/19 05:00 Absolute Neuts (auto) 3.6 10^3/uL (1.7-8.2) 11/14/19 05:00 Absolute Lymphs (auto) 1.3 10^3/uL (0.5-4.7) 11/14/19 05:00 Absolute Monos (auto) 0.5 10^3/uL (0.1-1.4) 11/14/19 05:00 Absolute Eos (auto) 0.2 10^3/uL (0.0-0.6) 11/14/19 05:00 Absolute Basos (auto) 0.1 10^3/uL (0.0-0.2) 11/14/19 05:00 Seg Neutrophils % 63.1 % (42-78) 11/14/19 05:00 PT 17.3 SEC (11.4-15.4) H 11/10/19 13:41 INR 1.40 11/10/19 13:41 Sodium 129.0 mmol/L (137-145) L 11/14/19 05:00 Potassium 4.4 mmol/L (3.6-5.0) 11/14/19 05:00 Chloride 97 mmol/L (98-107) L 11/14/19 05:00 Carbon Dioxide 25 mmol/L (22-30) 11/14/19 05:00 Anion Gap 7 (5-19) 11/14/19 05:00 BUN 15 mg/dL (7-20) 11/14/19 05:00 Creatinine 0.87 mg/dL (0.52-1.25) 11/14/19 05:00 Est GFR ( Amer) > 60 (>60) 11/14/19 05:00 Est GFR (MDRD) Non-Af > 60 (>60) 11/14/19 05:00 Glucose 96 mg/dL (75-110) 11/14/19 05:00 POC Glucose 109 mg/dL (70-110) 11/14/19 16:16 Hemoglobin A1c % 5.5 % (4.7-6.0) 11/11/19 04:56 Calcium 8.7 mg/dL (8.4-10.2) 11/14/19 05:00 Magnesium 1.8 mg/dL (1.6-2.3) 11/11/19 04:56 Total Bilirubin 0.4 mg/dL (0.2-1.3) 11/11/19 04:56 Direct Bilirubin 0.0 mg/dL (0.0-0.4) 11/11/19 04:56 Neonat Total Bilirubin Not Reportable 11/11/19 04:56 Neonat Direct Bilirubin Not Reportable 11/11/19 04:56 Neonat Indirect Bili Not Reportable 11/11/19 04:56 AST 15 U/L (17-59) L 11/11/19 04:56 ALT 10 U/L (<50) 11/11/19 04:56 Alkaline Phosphatase 61 U/L (38-126) 11/11/19 04:56 Troponin I 0.012 ng/mL 11/10/19 12:51 NT-Pro-B Natriuret Pep 77 pg/mL (<125) 11/11/19 04:56 Total Protein 6.1 g/dL (6.3-8.2) L 11/11/19 04:56 Albumin 3.5 g/dL (3.5-5.0) 11/11/19 04:56 Urine Color YELLOW 11/10/19 20:23 Urine Appearance SLIGHTLY-CLOUDY 11/10/19 20:23 Urine pH 7.0 (5.0-9.0) 11/10/19 20:23 Ur Specific [place] 1.019 11/10/19 20:23 Urine Protein NEGATIVE mg/dL (NEGATIVE) 11/10/19 20:23 Urine Glucose (UA) NEGATIVE mg/dL (NEGATIVE) 11/10/19 20:23 Urine Ketones NEGATIVE mg/dL (NEGATIVE) 11/10/19 20:23 Urine Blood SMALL (NEGATIVE) H 11/10/19 20:23 Urine Nitrite POSITIVE (NEGATIVE) H 11/10/19 20:23 Urine Bilirubin NEGATIVE (NEGATIVE) 11/10/19 20:23 Urine Urobilinogen NEGATIVE mg/dL (<2.0) 11/10/19 20:23 Ur Leukocyte Esterase LARGE (NEGATIVE) H 11/10/19 20:23 Urine WBC (Auto) 154 /HPF 11/10/19 20:23 Urine RBC (Auto) 5 /HPF 11/10/19 20:23 Squamous Epi Cells Auto <1 /HPF 11/10/19 20:23 Urine Mucus (Auto) RARE /LPF 11/10/19 20:23 Urine Ascorbic Acid NEGATIVE (NEGATIVE) 11/10/19 20:23 11/10/19 11/11/19 12:51 04:56 Troponin I 0.012 NT-Pro-B Natriuret Pep 77 Impressions: Abdomen/Pelvis CT 11/10/19 00:00 IMPRESSION: Nonobstructing left renal calculus. Diverticulosis without evidence of diverticulitis. PICC Line Insertion 11/14/19 00:00 IMPRESSION: SUCCESSFUL PLACEMENT OF A 5 FR DUAL LUMEN 43 CM PICC IN THE LEFT BASILIC VEIN. Plan Health Concerns: Follow-up with PCP for referral to urology as discussed For definitive management of the left nonobstructing renal calculus as this appears to be the brittanie of infection Patient has a PICC line in place which will need to be removed after antibiotic treatment Time Spent: Greater than 30 Minutes Stroke Is this a Stroke Patient?: No Acute Heart Failure - Is this a Heart Failure Patient?: No
[2019-11-14] MEDS ORDERED: NORMAL SALINE 10 ML SDV (SCHEDULED) IV SCH (22:00)
== END 2019-11-14 18:05 | disposition home health service (06) | DRG 690 ==
LOC: OBSVTOIN 11:55 → 4N 11:55 → INTOOBSV 11:55
PROVIDERS: ADMIT Internal Medicine; ATTEND Internal Medicine
PROC: 02HV33Z Insertion of Infusion Device into Superior Vena Cava, Percutaneous Approach (ICD-10-PCS; principal; 2019-11-14)
PROC: B548ZZA Ultrasonography of Superior Vena Cava, Guidance (ICD-10-PCS; 2019-11-14)
PROC: B518ZZA Fluoroscopy of Superior Vena Cava, Guidance (ICD-10-PCS; 2019-11-14)
DX: N39.0 Urinary tract infection, site not specified (principal); N20.0 Calculus of kidney; E11.9 Type 2 diabetes mellitus without complications; N40.0 Benign prostatic hyperplasia without lower urinary tract symptoms; F43.10 Post-traumatic stress disorder, unspecified; I10 Essential (primary) hypertension; E78.5 Hyperlipidemia, unspecified; I48.0 Paroxysmal atrial fibrillation; J44.9 Chronic obstructive pulmonary disease, unspecified; B96.5 Pseudomonas (aeruginosa) (mallei) (pseudomallei) as the cause of diseases classified elsewhere; E03.9 Hypothyroidism, unspecified; Z85.828 Personal history of other malignant neoplasm of skin; Z79.82 Long term (current) use of aspirin; Z79.84 Long term (current) use of oral hypoglycemic drugs; Z82.3 Family history of stroke; Z82.49 Family history of ischemic heart disease and other diseases of the circulatory system; Z83.438 Family history of other disorder of lipoprotein metabolism and other lipidemia; Z82.61 Family history of arthritis; Z79.01 Long term (current) use of anticoagulants; Z88.8 Allergy status to other drugs, medicaments and biological substances; Z88.6 Allergy status to analgesic agent; Z87.440 Personal history of urinary (tract) infections
CPT/HCPCS: 36415; 36573; 74178; 80048; 80053; 81001; 82962; 83036; 83735; 83880; 84484; 85025; 85610; 87040; 87086; 87088; 87186; 93005; 93010; J0692; J1642; J3490; J7030; J7060

== ENCOUNTER 2019-12-15 10:47 | Emergency (ER) | payer MEDICARE, BC ==
--- NOTE | 2019-12-15 11:47 | ER Document Report ---
ED Medical Screen (RME) - General Chief Complaint: Other Stated Complaint: PICC LINE REMOVAL Time Seen by Provider: 12/15/19 11:45 Primary Care Provider: SILAS BRENNAN MD [Primary Care Provider] - Follow up as needed Mode of Arrival: Ambulatory Information source: Patient Notes: 74-year-old male presented to ED for removal of his PICC line. He states he was sent over here by Dr. Colbert from the doctor's office to get the PICC line removed. He states the doctor told me no longer needed it and it needed to be removed. Patient is alert oriented respirations regular and unlabored speaking in full sentences. He states he cannot remember why he had in but he needs to get it taken out. I have greeted and performed a rapid initial assessment of this patient. A comprehensive ED assessment and evaluation of the patient, analysis of test results and completion of medical decision making process will be conducted by an additional ED providers. TRAVEL OUTSIDE OF THE [place] IN LAST 30 DAYS: No - Related Data Allergies/Adverse Reactions: acetaminophen [From Tylenol] Adverse Reaction (Verified 08/29/19 10:02) steroids Adverse Reaction (Intermediate, Uncoded 08/29/19 10:02) elevated bp Past Medical History - Past Medical History Cardiac Medical History: Reports: Hx Atrial Fibrillation, Hx Hypercholesterolemia, Hx Hypertension Denies: Hx Congestive Heart Failure, Hx Coronary Artery Disease, Hx Heart Attack Pulmonary Medical History: Reports: Hx COPD Denies: Hx Asthma, Hx Bronchitis, Hx Pneumonia, Hx Tuberculosis Neurological Medical History: Denies: Hx Seizures, Hx Parkinson's Disease Endocrine Medical History: Reports: Hx Diabetes Mellitus Type 2, Hx Hypothyroidism Renal/ Medical History: Reports: Hx Benign Prostatic Hyperplasia. Denies: Hx End Stage Renal Disease, Hx Kidney Stones, Hx Peritoneal Dialysis Malignancy Medical History: Reports Hx Skin Cancer GI Medical History: Reports: Hx Irritable Bowel, Hx Colonoscopy. Denies: Hx Cirrhosis, Hx Gastroesophageal Reflux Disease, Hx Hepatitis, Hx Hiatal Hernia, Hx Ulcer Musculoskeltal Medical History: Reports Hx Arthritis, Denies Hx Multiple Sclerosis, Reports Hx Musculoskeletal Deformity, Reports Hx Musculoskeletal Trauma Psychiatric Medical History: Reports: Hx Anxiety, Hx Depression, Hx Post Traumatic Stress Disorder Denies: Hx Bipolar Disorder, Hx Schizophrenia Traumatic Medical History: Reports: Hx Fractures - 3 weeks ago tripped vidant orif L lisfranc still nonweight bearing Infectious Medical History: Denies: Hx Hepatitis Past Surgical History: Reports: Hx Orthopedic Surgery - cervical & lumbar laminectomies orif L lis franc, Hx Tonsillectomy. Denies: Hx Open Heart Surgery, Hx Pacemaker - Immunizations Immunizations up to date: Yes Hx Diphtheria, Pertussis, Tetanus Vaccination: Yes - january 2015 Physical Exam - Vital signs Vitals: Temp Pulse Resp BP Pulse Ox 98.3 F 86 18 114/79 100 12/15/19 11:01 12/15/19 11:01 12/15/19 11:01 12/15/19 11:01 12/15/19 11:01 Course - Vital Signs Vital signs: Temp Pulse Resp BP Pulse Ox 98.3 F 86 18 114/79 100 12/15/19 11:01 12/15/19 11:01 12/15/19 11:01 12/15/19 11:01 12/15/19 11:01 Doctor's Discharge - Discharge Referrals: SILAS BRENNAN MD [Primary Care Provider] - Follow up as needed
--- NOTE | 2019-12-15 16:45 | ER Document Report ---
ED General - General Chief Complaint: Other Stated Complaint: PICC LINE REMOVAL Time Seen by Provider: 12/15/19 11:45 Primary Care Provider: SILAS BRENNAN MD [Primary Care Provider] - Follow up as needed Mode of Arrival: Ambulatory Information source: Patient, Dr. Office Cannot obtain history due to: Dementia Notes: Patient is a 74-year-old male who comes to the emergency room stating he has been sent by Dr. Colbert to have his PICC line removed. Patient informs us that his dropped him off and he is to have the PICC line removed today. Patient is a poor historian does not know why he has the PICC line in and does not know how long it is been in there. He does state that Dr. Colbert is sent him over here to have that removed. Patient comes carrying with him at [facility] apparent order sheet that has just the name [facility] and smaller letters under that Medical Center under that diagnostic center and under that surgery center noted that in smaller print [facility] does not have a printed name of the physician on it does have the patient's name and birthdate with the writing please remove PICC line. With patient not knowing who his doctor is specifically and we are unable to get hold the patient's we will need to do further research before pulling the PICC line. Further evaluation patient's past medical history does show the patient has a chronic urinary tract problem he was seen here on November 14, 2019 and had the PICC line placed through interventional radiology. This was for a chronic UTI. TRAVEL OUTSIDE OF THE [place] IN LAST 30 DAYS: No - HPI Onset: Other - 1 month Onset/Duration: Gradual Quality of pain: No pain Severity: None Pain Level: 0 Exacerbated by: Movement Relieved by: Denies Similar symptoms previously: Yes Recently seen / treated by doctor: Yes - Related Data Allergies/Adverse Reactions: acetaminophen [From Tylenol] Adverse Reaction (Verified 08/29/19 10:02) steroids Adverse Reaction (Intermediate, Uncoded 08/29/19 10:02) elevated bp Past Medical History - Social History Smoking Status: Never Smoker Frequency of alcohol use: None Drug Abuse: None Lives with: Alone Family History: Arthritis, CAD, CVA, Hyperlipidemia, Hypertension, Malignancy. denies: DM, Thyroid Disfunction Patient has homicidal ideation: No - Past Medical History Cardiac Medical History: Reports: Hx Atrial Fibrillation, Hx Hypercholesterolem ia, Hx Hypertension Denies: Hx Congestive Heart Failure, Hx Coronary Artery Disease, Hx Heart Attack Pulmonary Medical History: Reports: Hx COPD Denies: Hx Asthma, Hx Bronchitis, Hx Pneumonia, Hx Tuberculosis Neurological Medical History: Denies: Hx Seizures, Hx Parkinson's Disease Endocrine Medical History: Reports: Hx Diabetes Mellitus Type 2, Hx Hypothyroidism Renal/ Medical History: Reports: Hx Benign Prostatic Hyperplasia. Denies: Hx End Stage Renal Disease, Hx Kidney Stones, Hx Peritoneal Dialysis Malignancy Medical History: Reports Hx Skin Cancer GI Medical History: Reports: Hx Irritable Bowel, Hx Colonoscopy. Denies: Hx Cirrhosis, Hx Gastroesophageal Reflux Disease, Hx Hepatitis, Hx Hiatal Hernia, Hx Ulcer Musculoskeletal Medical History: Reports Hx Arthritis, Denies Hx Multiple Sclerosis, Reports Hx Musculoskeletal Deformity, Reports Hx Musculoskeletal Trauma Psychiatric Medical History: Reports: Hx Anxiety, Hx Depression, Hx Post Traumatic Stress Disorder Denies: Hx Bipolar Disorder, Hx Schizophrenia Traumatic Medical History: Reports: Hx Fractures - 3 weeks ago tripped vidant orif L lisfranc still nonweight bearing Infectious Medical History: Denies: Hx Hepatitis Past Surgical History: Reports: Hx Orthopedic Surgery - cervical & lumbar laminectomies orif L lis franc, Hx Tonsillectomy. Denies: Hx Open Heart Surgery, Hx Pacemaker - Immunizations Immunizations up to date: Yes Hx Diphtheria, Pertussis, Tetanus Vaccination: Yes - january 2015 Hx Pneumococcal Vaccination: 07/20/13 Review of Systems - Review of Systems Constitutional: No symptoms reported EENT: No symptoms reported Cardiovascular: No symptoms reported Respiratory: No symptoms reported Gastrointestinal: No symptoms reported Genitourinary: No symptoms reported Male Genitourinary: No symptoms reported Musculoskeletal: No symptoms reported Skin: No symptoms reported, Other - PICC line Hematologic/Lymphatic: No symptoms reported Neurological/Psychological: No symptoms reported -: Yes All other systems reviewed and negative Physical Exam - Vital signs Vitals: Temp Pulse Resp BP Pulse Ox 98.3 F 86 18 114/79 100 12/15/19 11:01 12/15/19 11:01 12/15/19 11:01 12/15/19 11:01 12/15/19 11:01 Interpretation: Normal - Notes Notes: PHYSICAL EXAMINATION: GENERAL: Well-appearing, well-nourished and in no acute distress. HEAD: Atraumatic, normocephalic. EYES: Pupils equal round and reactive to light, extraocular movements intact, sclera anicteric, conjunctiva are normal. ENT: Nares patent, oropharynx clear without exudates. Moist mucous membranes. NECK: Normal range of motion, supple without lymphadenopathy LUNGS: Breath sounds clear to auscultation bilaterally and equal. No wheezes rales or rhonchi. HEART: Regular rate and rhythm without murmurs ABDOMEN: Soft, nontender, nondistended abdomen. No guarding, no rebound. No masses appreciated. Musculoskeletal: Normal range motion. Examination patient's left arm shows a patent appearing PICC line in the upper arm. There is no apparent streaking and no erythema noted around the site. Patient has full range of motion the arm without any deficits. He has good cap refill in nailbeds of the fingers of the left hand. NEUROLOGICAL: . Patient is awake and alert and mostly answers questions appropriately but is a poor historian and cannot remember dates and times. PSYCH: Normal mood, normal affect. SKIN: Warm, Dry, as stated earlier examination patient's area of placement of the PICC line the left upper arm does not show any signs of erythema. After removing the dressing applied again there was no sign of erythema no sign of discharge no sign of discoloration. Course - Re-evaluation Re-evalutation: 12/16/19 01:12 After sitting talk to patient for quite an extended time I decided come back and contact [facility]. I first called their main number at [phone] was put on hold for 30 minutes then ended up calling on a second line getting the same mat machine operator who then connected me to the diagnostic center. After discussing the case again with this person at the diagnostic center we found out that the patient's doctor's name is Dr. Craft he is a urologist. And according to what I was told by the charge nurse after contacting Dr. Craft's office in [place] he was actually here in [place] at his clinic today and saw the patient and is the one that gave him the order to come here to have it removed. I contacted Meagan who is his tactical intelligence officer at [phone] and she is a 1 and put me in contact contact with Carmen at [phone]. It was confirmed that Dr. Craft does want the PICC line removed. Given these findings I then discussed the case with I have pulled PICC line's multiple times in the past but every hospital is different so I did get her consent and she allowed me to go ahead and pull the PICC line. I took with with me a nurse for the procedure. I cleaned patient's area with a little alcohol prior to pulling the PICC line. I removed the dressing and again as stated noted no signs of infection or erythema. I then placed some sterile 4 x 4 over the entrance site and slowly but quickly removed the PICC line. The entire line came out intact there was no bleeding noted afterwards. We did put a slight restrictive dressing on with a few 4 x 4's and some Covan and had patient meet his outside and to leave that dressing on in place for the next 7 or 8 hours. If he takes it off and it is bleeding at all he is to reapply the dressing. If he has any concerns or problems he is to come back to the ER for reexamination. - Vital Signs Vital signs: Temp Pulse Resp BP Pulse Ox 98.1 F 78 18 109/74 99 12/15/19 16:46 12/15/19 16:46 12/15/19 16:46 12/15/19 16:46 12/15/19 16:46 Discharge - Discharge Clinical Impression: PIC line (peripherally inserted central catheter) removal Disposition: HOME, SELF-CARE Additional Instructions: We have removed you are left-sided PICC line which is [facility]. I have been able to get in contact with Dr. Craft your urologist office who has confirmed that they want the PICC line removed. The aftercare instructions are to keep the area clean and dry for the next 24 hours so avoid taking a shower until the hole closes up. You can remove the dressing in about 5 to 6 hours but I would apply a Band-Aid afterwards. Should you spike a fever or have any concerns return to ER for reevaluation. This could include shortness of breath chest pain swelling of the arm loss of feeling etc. keep your appointment with Dr. Terese morley scheduled sometime at the end of December for further investigation of the urinary problems but again return to ER if you spike a fever or have any concerns. Referrals: SILAS BRENNAN MD [Primary Care Provider] - Follow up as needed
[2019-12-15 17:00] VITALS: BP 109/74
== END 2019-12-15 17:00 | disposition home or self-care (01) ==
LOC: ER 10:47
DX: Z45.2 Encounter for adjustment and management of vascular access device (principal)
CPT/HCPCS: 99283

== ENCOUNTER → 2020-03-14 | Outpatient (CLI) | payer MEDICARE, BC ==
[2020-03-14 08:50] LABS: ABSOLUTE BASOPHILS # (AUTO) 0.1 10^3/uL (0.0-0.2); ABSOLUTE EOSINOPHILS # (AUTO) 0.1 10^3/uL (0.0-0.6); ABSOLUTE LYMPHOCYTES (AUTO) 1.2 10^3/uL (0.5-4.7); ABSOLUTE MONOCYTES (AUTO) 0.4 10^3/uL (0.1-1.4); ABSOLUTE RETICS # 0.087 10^6/uL (0.028-0.122); BASOPHILS % (AUTO) 1.2 % (0-2); EOSINOPHILS % (AUTO) 2.4 % (0-6); HEMATOCRIT 30.2 % (37.9-51.0); HEMOGLOBIN 10.1 g/dL (13.5-17.0); MEAN CORPUSCULAR HEMOGLOBIN 30.7 pg (27.0-33.4); MEAN CORPUSCULAR HGB CONC 33.5 g/dL (32.0-36.0); MEAN CORPUSCULAR VOLUME 92 fl (80-97); MONOCYTES % (AUTO) 7.6 % (3-13); PLATELET COUNT 436 10^3/uL (150-450); RED BLOOD COUNT 3.29 10^6/uL (4.35-5.55); RED CELL DISTRIBUTION WIDTH 16.3 % (11.5-14.0); RETICULOCYTE COUNT (AUTO) 2.63 % (0.66-2.85); SEGMENTED NEUTROPHILS % (AUTO) 68.8 % (42-78); TOTAL CELLS COUNTED % (AUTO) 100 %; WHITE BLOOD COUNT 5.8 10^3/uL (4.0-10.5)
[2020-03-14 09:13] LABS: ALBUMIN 3.8 g/dL (3.5-5.0); ALKALINE PHOSPHATASE 102 U/L (38-126); ANION GAP 9 (5-19); ASPARTATE AMINO TRANSFERASE 16 U/L (17-59); BILIRUBIN,DIRECT 0.3 mg/dL (0.0-0.4); BILIRUBIN,TOTAL 0.5 mg/dL (0.2-1.3); BLOOD UREA NITROGEN 14 mg/dL (7-20); CALCIUM 9.3 mg/dL (8.4-10.2); CARBON DIOXIDE 24 mmol/L (22-30); CHLORIDE 99 mmol/L (98-107); CHOLESTEROL 117.07 mg/dL (0-200); GLUCOSE 126 mg/dL (75-110); IRON(TIBC) 48.6 ug/dL (49-181); POTASSIUM 5.2 mmol/L (3.6-5.0); TOTAL PROTEIN 6.3 g/dL (6.3-8.2); TRIGLYCERIDES 99 mg/dL (<150)
[2020-03-14 09:30] LABS: DIRECT LDL 60 mg/dL (<100)
== END ==
LOC: OD 07:53
PROVIDERS: ATTEND Internal Medicine
DX: E11.9 Type 2 diabetes mellitus without complications (principal); I10 Essential (primary) hypertension; D64.9 Anemia, unspecified; R53.83 Other fatigue; E78.5 Hyperlipidemia, unspecified
CPT/HCPCS: 36415; 80053; 80061; 82728; 83036; 83540; 83550; 84443; 85025; 85045